=== PATIENT | female | born 1975 | race Caucasian/White ===

== ENCOUNTER 2020-01-31 14:56 | Outpatient (CLI) | payer OTHER, SELFPAY ==
--- NOTE | 2020-01-31 15:09 | MM_ITS ---
WS: [id number] BILATERAL DIGITAL SCREENING MAMMOGRAPHY WITH CAD CLINICAL INFORMATION: SCREENING HISTORY: Screening mammogram. No current complaints. COMPARISON: September 02, 2016 TECHNIQUE: Bilateral CC and MLO views. FINDINGS: Scattered fibroglandular densities bilaterally. No suspicious focal mass, asymmetry, calcifications, or architectural distortion. No evidence of malignancy. MM/[place] [id number] IMPRESSION: BI-RADS: 1-Negative FOLLOW UP: 1 Year Follow-up Recommend return to annual screening mammography.
== END 2020-01-31 14:57 | disposition home or self-care (01) ==
LOC: RADSHAW 15:02
PROVIDERS: PCP Physician Assistant; Visit Provider Physician Assistant
DX: Z12.31 Encounter for screening mammogram for malignant neoplasm of breast (principal)
CPT/HCPCS: 77067

== ENCOUNTER 2020-05-26 10:45 | Outpatient (CLI) | payer OTHER, SELFPAY ==
--- NOTE | 2020-05-26 10:52 | CT_ITS ---
WS: [id number] CT ABDOMEN PELVIS TECHNIQUE: Contrast-enhanced CT of the abdomen and pelvis with coronal and sagittal reformatted image s. CLINICAL INFORMATION: LLQ PAIN COMPARISON: CT and 3 ,014 DLP: 1098.[address] scans at [facility] use at least one of these dose optimization techniques: automat ed exposure control; mA and/or kV adjustment per patient size (includes targeted exams where dose is matched to clinical indication); or iterative reconstruction. FINDINGS: Hepatomegaly with diffuse fatty infiltration. Prior cholecystectomy and hysterectomy. Normal portal v ein and splenic vein. Normal spleen. Tiny atrophic left kidney. Cortical scarring right kidney. No hy dronephrosis in the right kidney . Incidental right lower pole renal cyst increased in size since 2019. Renal cyst measures 4.9 CM today . Additional smaller right renal cysts. Normal sigmoid colon. No evidence of small or large bowel obstruction. Small right adnexal cyst measu ring 1.7 cm. This can be followed up with ultrasound. Normal caliber abdominal aorta. No abdominal lymphadenopathy. No inguinal lymphadenopathy. Lung bases are well aerated. Small partially visualized nodule in the right middle lobe anteriorly measuring 6 mm. This can be followed up with chest CT. Visualized lumbar spine is normal. Normal visualized pelvi c bony structures. . CT/CT abdomen pelvis w con* [id number] IMPRESSION: 1. Diffuse fatty infiltration liver with hepatomegaly. 2. Prior cholecystectomy and hysterectomy. 3. Tiny atrophic left kidney. Cortical scarring right kidney. 4. Right lower pole renal cyst anteriorly measuring 4.9 cm progressed from 201 9 where it measured approximately 3.3 cm. 5. Tiny noncalcified nodule right middle lobe anteriorly measuring 5 mm. This appears stable since . This can be followed up with chest CT. 6. Normal caliber abdominal aorta. 7. No abdominal or inguinal lymphadenopathy. 8. Right adnexal cyst measuring 1.6 cm likely incidental ovarian cyst. This ca n be followed up with ultrasound. No free fluid in the pelvis.
[2020-05-26] MEDS: iodixanol 320 mg/mL 100mL Btl IV (11:14)
== END 2020-05-26 10:46 | disposition home or self-care (01) ==
LOC: RADWPI 10:49
PROVIDERS: Family Provider Physician Assistant; PCP Physician Assistant; Visit Provider Physician Assistant
DX: R10.32 Left lower quadrant pain (principal); K76.0 Fatty (change of) liver, not elsewhere classified; N26.1 Atrophy of kidney (terminal); N28.1 Cyst of kidney, acquired; R91.1 Solitary pulmonary nodule
CPT/HCPCS: 74177; Q9967

== ENCOUNTER 2021-03-16 13:26 | Outpatient (CLI) | payer OTHER, SELFPAY ==
[2021-03-16 14:34] LABS: Hepatitis B Surface AB 3.5 (11.5-1000)
== END 2021-03-16 13:27 | disposition home or self-care (01) ==
PROVIDERS: PCP Physician Assistant; Visit Provider Family Medicine
DX: Z01.84 Encounter for antibody response examination (principal)
CPT/HCPCS: 36415; 86706

== ENCOUNTER 2021-04-30 09:00 | Emergency (ER) | payer OTHER, SELFPAY ==
[2021-04-30 09:03] VITALS: BP 146/112; PULSE 71; RESP 22; O2SAT 98; BMI 42.4
--- NOTE | 2021-04-30 09:11 | CT_ITS ---
WS: [id number] CT ABDOMEN AND PELVIS WITH CONTRAST HISTORY: R abdominal pain; N/V TECHNIQUE: Imaging performed of the abdomen and pelvis with IV contrast. Single phase imaging of the abdomen. Coronal and sagittal reformats are submitted. All CT scans at [facility] use at least one of these dose optimization techniques: automated exposure control; mA and/or kV adjustment per patient size (includes targeted exams where dose is matched to clinical indication); or iterativ e reconstruction. IV CONTRAST: Visipaque 320; 95 mL IV. Oral contrast: No DLP: 1875.21 mGy.cm COMPARISON: 05/26/2020 Lower thorax: Long-term stability 5 mm soft tissue nodule RIGHT middle lobe. Heart is normal size. Sm all hiatal hernia. Liver/biliary system: Moderate hepatomegaly and hepatic steatosis. The liver is enlarged with diffuse marked low attenuation. No bile duct dilatation or mass. Gallbladder: Status post cholecystectomy. Pancreas: Normal size pancreas and pancreatic duct. No adjacent inflammation. Spleen: Normal size spleen. No mass or infarct. Adrenal glands: Normal. Right kidney: Multifocal areas of cortical thinning and scarring of the RIGHT kidney. The remaining p arenchyma is normally enhancing. From the anterior kidney measures 4.0 x 4.8 cm. No solid mass or obs truction. Left kidney: Severe atrophy of the LEFT kidney. Aorta: Normal. Lymphadenopathy: None. Free fluid: None. GI tract: Normal appearance of the stomach. There is circumferential thickening and mild hyperemia wi thin the jejunum. Small bowel loops measure up to 2.8 cm in diameter. Mild increased amount of fluid within the remaining small bowel. There is a 2 cm high density objects in the central small bowel but does not appear to be causing the obstruction. This may be medicinal tablet. The appendix is normal. No wall thickening of the colon or obstruction. Abdominal wall: Fat containing umbilical hernia. Pelvis: Prior hysterectomy. No free fluid or adenopathy. Negative urinary bladder. Bones: Unremarkable. CT/CT abdomen pelvis w con* [id number] IMPRESSION: 1. Small bowel enteritis predominantly involving the jejunum. No site of obstr uction is evident but there is hyperemia and wall thickening. 2. Foreign body object measuring 2 cm in the mid small bowel does not appear t o be causing the obstruction. This is probably a medicinal tablet. 3. Severe atrophy LEFT kidney. 4. Multifocal areas of cortical thinning RIGHT kidney, no change. 5. Marked hepatic steatosis and hepatomegaly. 6. Prior cholecystectomy and hysterectomy.
--- NOTE | 2021-04-30 09:11 | W.ED.ABDPA2 ---
HPI - Abdominal Pain General: Chief Complaint: Abdominal Pain Stated Complaint: r sided abdomen pain Time Seen by Provider: 04/30/21 09:01 Source: patient Mode of arrival: ambulatory Limitations: no limitations History of Present Illness: HPI narrative: Patient is a nice 45-year-old female who presents to ED today for evaluation of right-sided abdominal pain. Patient tells me earlier this week she began having intermittent episodes of nausea and vomiting. She did not notice any episodes of hematemesis. She states yesterday evening while lying in bed she began feeling some right lower abdominal discomfort. She states this morning pain has progressively worsened. She has had a few episodes of loose stools but states she often alternates between constipation and diarrhea. No episodes of hematochezia or black/tarry stools. She reports chills but no documented fevers. Previous abdominal surgeries include partial hysterectomy, tubal ligation, cholecystectomy. Reports one atrophic kidney. No urinary symptoms. Denies flank pain. MD elicited complaint: abdominal pain Pertinent past history: none Onset (ago): hour(s) Pain Consistency: constant Location: RLQ Severity: moderate Quality: sharp Radiation: none Migration to: no migration Relieving factors: nothing Associated Symptoms: Reports chills, diarrhea, nausea and vomiting; Denies bloating, coffee ground emesis, dysuria, fever(s), heartburn, hematochezia, hematemesis and melena Review of Systems Const: Reports: chills; Denies: fever(s), body aches, fatigue, malaise or night sweats ENMT: Denies: throat pain or odynophagia Card: Denies: chest pain Resp: Denies: dyspnea GI: Reports: abdominal pain, nausea, vomiting and diarrhea; Denies: hematemesis, coffee ground emesis, dysphagia, heartburn, bloating, hematochezia, melena or mucus in stool : Denies: flank pain, difficulty voiding, dysuria, urinary frequency, urinary urgency or urinary hesitancy Musc: Denies: neck pain, back pain or joint pain Skin/Breast: Denies: rash Neuro: Denies: headache(s) PFSH ED PFSH: Social History Smoking and tobacco status: never smoked Physical Exam Const: COMMON NORMALS: no acute distress, patient oriented x3, no limitations and alert GENERAL APPEARANCE: cooperative NUTRITIONAL APPEARANCE: obese ORIENTATION/CONSCIOUSNESS: Yes awake, Yes oriented to person, Yes oriented to place and Yes oriented to time HENMT: COMMON NORMALS: normocephalic and atraumatic HEAD & SCALP: normocephalic and atraumatic Resp: COMMON NORMALS: normal respiratory effort and clear to auscultation bilaterally AUSCULTATION: clear to auscultation bilaterally Cardio: COMMON NORMALS: regular rate and regular rhythm RATE: regular rate RHYTHM: regular rhythm GI: COMMON NORMALS: Normal to inspection, nondistended, normoactive bowel sounds present, Soft to palpation, No hepatosplenomegaly present and no masses PALPATION: Yes Soft to palpation, Yes Tenderness to palpation present (GI) (R mid to lower abdominal pain), Yes Guarding due to palpation present (GI) and Yes No hepatosplenomegaly present GI image (female): 1. TTP : COMMON NORMALS: Yes no CVA tenderness BLADDER/KIDNEY EXAM: Yes no CVA tenderness Back/Pelvis: COMMON NORMALS: no CVA tenderness Extremity: COMMON NORMALS: normal to inspection GENERAL: Yes normal exam except as noted Neuro: COMMON NORMALS: patient oriented x3 SENSORIUM/ORIENTATION: Yes alert, Yes oriented to person, Yes oriented to place and Yes oriented to time Skin: COMMON NORMALS: no rashes or lesions noted GENERAL SKIN EXAM: no rashes or lesions noted TRAUMA: no lacerations or abrasions Course Vital Signs: Vital signs: Vital Signs Pulse Rate 83 04/30/21 10:14 Respiratory Rate 18 04/30/21 10:14 Blood Pressure 143/94 04/30/21 10:14 Pulse Oximetry 95 04/30/21 10:14 MDM - Abdominal Pain MDM Narrative: Medical decision making narrative: 45-year-old female here for right-sided abdominal pain and intermittent episodes of nausea, vomiting, diarrhea. Vital signs are stable. She has a normal white count. Chemistry panel showing chronic kidney disease. Creatinine is 1.5. GFR is 37. Patient sees Dr. Alarcon/nephrology. Labs were reviewed on patient's phone and creatinine was 1.5 with a GFR of 37 last month during her last visit. Creatinine was 1.6 with a GFR of 36 in November 2019. She has mild elevations to her LFTs most likely consistent with her hepatomegaly. CT scan was completed with contrast prior to CMP being reported. I would have changed this to non-contrast given her atrophic left kidney and chronic kidney disease. CT scan showing small bowel enteritis predominantly involving her jejunum. UA noted with 2+ leuks, hematuria, 10-15 WBCs and 1+ bacteria. She will be placed on cefdinir 300 mg twice daily (this dose is appropriate with her CrCl). Will be treated with pain and nausea medications for the enteritis. No concern for pyelo-normal white count, no flank pain, normal enhancing kidney on imaging. Recommend close obs at home and strict return to ED precautions given. Lab Data: Labs: Lab Results 04/30/21 04/30/21 04/30/21 Range/Units 09:18 09:18 10:06 WBC 7.7 (4.0-10.0) 10^3/ uL RBC 4.74 (4.1-5.3) 10^6/u L Hgb 13.9 (11.5-15.3) g/dL Hct 41.6 (37.0-47.0) % MCV 87.8 (81-99) fL MCH 29.3 (28.0-34.0) pg MCHC 33.4 (30.0-36.0) g/dL RDW 11.7 L (12.1-15.1) % Plt Count 245 (130-400) 10^3/c mm MPV 9.3 (7.4-10.4) fL Neut % (Auto) 51.7 % Lymph % (Auto) 38.8 % [place] % (Auto) 5.3 % Eos % (Auto) 3.1 % Baso % (Auto) 1.0 % Neut # (Auto) 3.97 (1.8-7.7) 10^3/u L Lymph # (Auto) 3.0 (0.8-4.8) 10^3/u L [place] # (Auto) 0.4 (0.2-0.9) 10^3/u L Eos # (Auto) 0.2 (0.0-0.8) 10^3/u L Baso # (Auto) 0.1 (0.0-0.1) 10^3/u L Nucleated RBC % (a uto) 0 % Nucleated RBCs # 0.0 /100WBC Sodium 138 (136-145) mmol/L Potassium 3.7 (3.5-5.1) mmol/L Chloride 100 (98-107) mmol/L Carbon Dioxide 27 (22-29) mmol/L Anion Gap 14.7 (5-19) BUN 16 (6-20) mg/dL Creatinine 1.5 H (0.5-0.9) mg/dL GFR Calculation 37.4 L (90-130) mL/min Glucose 87 (65-115) mg/dL Calculated Osmolal ity 287 (285-295) mOsm/k g Calcium 8.6 (8.5-10.5) mg/dL Total Bilirubin 0.4 (0.15-1.2) mg/dL AST 44 H (0-32) U/L ALT 63 H (0-33) U/L Alkaline Phosphata se 80 (35-105) IU/L Total Protein 7.4 (6.6-8.7) g/dL Albumin 3.8 (3.5-5.2) g/dL Globulin 3.6 (1.3-4.6) g/dL Lipase 18 (13-60) U/L Urine Color Yellow (Yellow) Urine Appearance Hazy A (CLEAR) Urine pH 7 (5-7) Ur Specific Gravit y 1.005 (1.005-1.030) Urine Protein Neg (Negative) Urine Glucose (UA) Norm (Normal) Urine Ketones Negative (Negative) Urine Blood 2+ H (Negative) Urine Nitrate Negative (Negative) Urine Bilirubin Neg (Negative) Urine Urobilinogen Norm (Negative) mg/dL Ur Leukocyte Imelda ase 2+ H (Negative) Urine RBC 0-4 H (0-2) /hpf Urine WBC 10-15 H (0-5) /hpf Ur Squamous Epith Cells 0-4 H (0-5) /hpf Amorphous Sediment Not Reportable Urine Bacteria 1+ H (NONE) /hpf Imaging Data ^: CT Abd/Pel: Radiologist's impression: [address] [address] Scan ReportSigned Patient: Celia Farfan #: [id number]: [id number]#:[id number]/Sex: 45 / FADM Date: 04/30/21Loc: ERRoom/Bed:Attending Dr: Ordering Provider/Ordering MD: Елена Calabrese Date of Service: 04/30/21 Procedure(s): CT abdomen pelvis w con* [id number] Accession Number(s): [id number] Report Number: [id number] WS: [id number] CT ABDOMEN AND PELVIS WITH CONTRAST HISTORY: R abdominal pain; N/V TECHNIQUE: Imaging performed of the abdomen and pelvis with IV contrast. Single phase imaging of the abdomen. Coronal and sagittal reformats are submitted. All CT scans at [facility] use at least one of these dose optimization techniques: automated exposure control; mA and/or kV adjustment per patient size (includes targeted exams where dose is matched to clinical indication); or iterative reconstruction. IV CONTRAST: Visipaque 320; 95 mL IV. Oral contrast: No DLP: 1875.21 mGy.cm COMPARISON: 05/26/2020 Lower thorax: Long-term stability 5 mm soft tissue nodule RIGHT middle lobe. Heart is normal size. Small hiatal hernia. Liver/biliary system: Moderate hepatomegaly and hepatic steatosis. The liver is enlarged with diffuse marked low attenuation. No bile duct dilatation or mass. Gallbladder: Status post cholecystectomy. Pancreas: Normal size pancreas and pancreatic duct. No adjacent inflammation. Spleen: Normal size spleen. No mass or infarct. Adrenal glands: Normal. Right kidney: Multifocal areas of cortical thinning and scarring of the RIGHT kidney. The remaining parenchyma is normally enhancing. From the anterior kidney measures 4.0 x 4.8 cm. No solid mass or obstruction. Left kidney: Severe atrophy of the LEFT kidney. Aorta: Normal. Lymphadenopathy: None. Free fluid: None. GI tract: Normal appearance of the stomach. There is circumferential thickening and mild hyperemia within the jejunum. Small bowel loops measure up to 2.8 cm in diameter. Mild increased amount of fluid within the remaining small bowel. There is a 2 cm high density objects in the central small bowel but does not appear to be causing the obstruction. This may be medicinal tablet. The appendix is normal. No wall thickening of the colon or obstruction. Abdominal wall: Fat containing umbilical hernia. Pelvis: Prior hysterectomy. No free fluid or adenopathy. Negative urinary bladder. Bones: Unremarkable. CT/CT abdomen pelvis w con* [id number] IMPRESSION: 1. Small bowel enteritis predominantly involving the jejunum. No site of obstruction is evident but there is hyperemia and wall thickening. 2. Foreign body object measuring 2 cm in the mid small bowel does not appear to be causing the obstruction. This is probably a medicinal tablet. 3. Severe atrophy LEFT kidney. 4. Multifocal areas of cortical thinning RIGHT kidney, no change. 5. Marked hepatic steatosis and hepatomegaly. 6. Prior cholecystectomy and hysterectomy. Dictated By:Delicia Parks DOSigned By:Delicia Parks DOSigned Date/Time:04/30/2148DD/ Discharge Plan Discharge Patient Disposition: Home Clinical Impression: Enteritis Chronic kidney disease Qualifiers: Chronic kidney disease stage: stage 3 (moderate) Chronic kidney disease stage 3 subtype: stage 3b (GFR 30-44) Qualified Code(s): N18.32 - Chronic kidney disease, stage 3b UTI (urinary tract infection) Qualifiers: Urinary tract infection type: acute cystitis Hematuria presence: with hematuria Qualified Code(s): N30.01 - Acute cystitis with hematuria Condition: Stable Prescriptions: New Zofran 4 mg tablet 4 mg PO Q6H PRN (Reason: nausea and vomiting) Qty: 14 RF: 0 acetaminophen-codeine 300-30 mg tablet 1 tab PO Q6H PRN (Reason: pain) Qty: 14 RF: 0 cefdinir 300 mg capsule 300 mg PO BID 7 Days Qty: 14 RF: 0 No Action colchicine 0.6 mg tablet 0.3 mg PO DAILY RF: 0 omeprazole 20 mg tablet,delayed release (DR/EC) 20 mg PO DAILY RF: 0 albuterol sulfate 90 mcg/actuation HFA aerosol inhaler 2 puff inhalation ONCE RF: 0 potassium chloride 20 mEq tablet extended release 20 meq PO DAILY RF: 0 bumetanide 0.5 mg tablet 0.5 mg PO DAILY RF: 0 hydrochlorothiazide 25 mg tablet 25 mg PO DAILY RF: 0 citalopram 20 mg tablet 20 mg PO DAILY RF: 0 amitriptyline 10 mg tablet 10 mg PO DAILY RF: 0 tizanidine 2 mg capsule 2 mg PO BID PRNRF: 0 gabapentin 100 mg capsule 200 mg PO BID RF: 0 clindamycin HCl 300 mg capsule 300 mg PO BID 10 Days Qty: 20 RF: 0 Discharge Orders: Discharge ED (Routine); Ordered 04/30/21 Ordered By: Елена Calabrese Referrals: Stephenie Osorio [Primary Care Provider] - Patient Instructions: Urinary Tract Infection in Women (ED), Chronic Kidney Disease (ED) Activity Restrictions/Additional Instructions: As we discussed do a bland liquid diet over the next 48 to 72 hours and advance as tolerated. You may take the pain and nausea medications as needed. Begin antibiotics immediately for the urinary tract infection. You need to return to the emergency department immediately for worsening or uncontrollable pain, repetitive episodes of diarrhea or vomiting, blood in your vomit or stools, fevers greater than 100.4, severe flank pain, or any other concerns you may have. I hope you begin to feel better soon. Coding Level of Care Code ED Financial Assistance Advisor for Wolfg Fwd Exam Comprehensive
[2021-04-30 09:26] LABS: Basophils # 0.1 10^3/uL (0.0-0.1); Eosinophils # 0.2 10^3/uL (0.0-0.8); Eosinophils % 3.1 %; Hematocrit 41.6 % (37.0-47.0); Hemoglobin 13.9 g/dL (11.5-15.3); Lymphocytes % 38.8 %; Mean Corpuscular HGB Conc 33.4 g/dL (30.0-36.0); Mean Corpuscular Hemoglobin 29.3 pg (28.0-34.0); Mean Corpuscular Volume 87.8 fL (81-99); Mean Platelet Volume 9.3 fL (7.4-10.4); Monocytes # 0.4 10^3/uL (0.2-0.9); Monocytes % 5.3 %; Neutrophils # 3.97 10^3/uL (1.8-7.7); Neutrophils % 51.7 %; Nucleated Red Blood Cells % 0 %; Platelet Count 245 10^3/cmm (130-400); Red Blood Count 4.74 10^6/uL (4.1-5.3); Red Cell Distribution Width 11.7 % (12.1-15.1); White Blood Count 7.7 10^3/uL (4.0-10.0)
[2021-04-30] MEDS: morphine 4 mg/mL SDV 1 mL IVP (09:26)
[2021-04-30] MEDS: ondansetron 2 mg/ML SDV 2 mL 4 MG IVP (09:26)
[2021-04-30] MEDS: sodium chloride 0.9% 1,000 ML 999 ML IV (09:27)
[2021-04-30] MEDS: iodixanol 320 mg/mL 100mL Btl IV (09:33)
[2021-04-30 09:46] LABS: Alanine Aminotransferase 63 U/L (0-33); Albumin Level 3.8 g/dL (3.5-5.2); Alkaline Phosphatase 80 IU/L (35-105); Anion Gap 14.7 (5-19); Aspartate Amino Transferase 44 U/L (0-32); Blood Urea Nitrogen 16 mg/dL (6-20); Calcium 8.6 mg/dL (8.5-10.5); Carbon Dioxide 27 mmol/L (22-29); Chloride 100 mmol/L (98-107); Globulin 3.6 g/dL (1.3-4.6); Glomerular Filtration Rate 37.4 mL/min (90-130); Glucose 87 mg/dL (65-115); Lipase 18 U/L (13-60); Osmolality Calculated 287 mOsm/kg (285-295); Potassium 3.7 mmol/L (3.5-5.1); Sodium 138 mmol/L (136-145); Total Bilirubin 0.4 mg/dL (0.15-1.2); Total Protein 7.4 g/dL (6.6-8.7)
[2021-04-30 10:14] VITALS: BP 143/94; PULSE 83; RESP 18; O2SAT 95
[2021-04-30 10:19] LABS: Bilirubin Urine Neg (Negative); Blood Urine 2+ (Negative); Glucose Urine UA Norm (Normal); Ketones Urine Negative (Negative); Nitrate Urine Negative (Negative); Protein Urine Neg (Negative); Specific Gravity, Urine 1.005 (1.005-1.030); Urine Appearance Hazy (CLEAR); Urine Color Yellow (Yellow); Urobilinogen Urine Norm (Negative); pH Urine 7 (5-7)
[2021-04-30 10:20] LABS: Add Urine Culture? Yes; Add Urine Microscopic? YES; Bacteria Urine 1+ /hpf; Leukocyte Esterase Urine 2+ (Negative); RBC Urine 0-4 /hpf (0-2); Squamous Epithelial Cell Urine 0-4 /hpf (0-5)
[2021-04-30 10:53] VITALS: BP 143/94; PULSE 75; O2SAT 96
== END 2021-04-30 11:02 | disposition home or self-care (01) ==
PROVIDERS: Emergency Provider Physician Assistant; PCP Registered Nurse
DX: K52.9 Noninfective gastroenteritis and colitis, unspecified (principal); N30.01 Acute cystitis with hematuria; N18.32 Chronic kidney disease, stage 3b
CPT/HCPCS: 74177; 80053; 81001; 83690; 85025; 87077; 87086; 87186; 96361; 96374; 96375; 99284; J2270; J2405; J7030; Q9967

== ENCOUNTER 2021-05-05 13:06 | Outpatient (CLI) | payer OTHER, SELFPAY ==
--- NOTE | 2021-05-05 13:20 | XR_ITS ---
WS: [id number] Exam: XR KUB [id number] Date/Time of Exam: 05/05/2021 1:20 PM Reason For Exam: ENTERITIS/ELEVATED LFT'S No bowel obstruction or free air noted. There is an ovoid opacity in the right abdomen that may repre sent medication in the GI tract. Visualized organ margins are intact. Signs of prior cholecystectomy. Regional bony elements are unremarkable. XR/XR KUB [id number] IMPRESSION: 1. No acute abdominal finding.
[2021-05-05 14:25] LABS: Amylase 24 U/L (28-100); Lipase 17 U/L (13-60)
== END 2021-05-05 13:07 | disposition home or self-care (01) ==
PROVIDERS: PCP Registered Nurse; Visit Provider Registered Nurse
DX: K52.9 Noninfective gastroenteritis and colitis, unspecified (principal); R79.89 Other specified abnormal findings of blood chemistry
CPT/HCPCS: 36415; 74018; 82150; 83690

== ENCOUNTER 2021-05-12 16:19 | Outpatient (CLI) | payer OTHER, SELFPAY ==
--- NOTE | 2021-05-12 16:33 | XR_ITS ---
WS: [id number] Lumbar spine, 3 views, 05/12/2021 Clinical Data: LOWER BACK PAIN Comparison: Lumbar spine, 03/28/2013. Findings: No compression fractures or subluxation is seen. No disc space narrowing is seen. The transverse proc esses and SI joints are normal. There is minimal osteoarthritic spurring of L3-L5. There are clips in the right upper quadrant from c holecystectomy. XR/XR lumbar spine 2-3V* [id number] Impression: Minimal osteoarthritis L3-L5.
== END 2021-05-12 16:20 | disposition home or self-care (01) ==
LOC: RAD 16:22
PROVIDERS: PCP Registered Nurse; Visit Provider Registered Nurse
DX: M54.5 Low back pain (principal)
CPT/HCPCS: 72100

== ENCOUNTER → 2021-07-07 15:04 | Outpatient (BNVA) | payer OTHER, SELFPAY | PROVIDERS: PCP Registered Nurse; Visit Provider Surgery | DX: Z20.822 Contact with and (suspected) exposure to COVID-19 (principal) | CPT/HCPCS: 87635 ==

== ENCOUNTER 2021-07-14 06:40 | Day surgery (SDC) | payer OTHER, SELFPAY ==
--- NOTE | 2021-07-14 06:10 | W.PM.OPSFHP ---
Same Day Surgery H&P Indication for Procedure/HPI DATE OF PROCEDURE: July 14, 2021 CHIEF COMPLAINT/INDICATIONFOR SURGICAL PROCEDURE: Constipation PREOP DIAGNOSIS: Screening colonoscopy PLANNED PROCEDRUE: Operation Date: 07/14/21 07:30 Proposed Procedures p Colonoscopy 51002 r19.4(Not Applicable) - Bronson Nolen MD Patient comes today for follow-up and she did respond some to the muscle relaxant and she has been moving her bowels and overall feels somehow better. Patient reports to me that she never had a colonoscopy as we discussed this last time and I did explore the potential option for colonoscopy at some point. As she continued to have chronic constipation. Interim history 07/14/2021 Patient comes today for screening colonoscopy ROS All systems have been reviewed negative except as per the above or per problem list Medications/Allergies* Home Medications Medication Instructions Recorded Confirmed Type albuterol sulfate 90 mcg/actuation 2 puff INHALATION ONCE g 02/15/21 07/12/21 History aerosol inhaler amitriptyline 10 mg tablet 10 mg PO DAILY 02/15/21 07/12/21 History bumetanide 0.5 mg tablet 0.5 mg PO DAILY 02/15/21 07/12/21 History citalopram 20 mg tablet 20 mg PO DAILY 02/15/21 07/12/21 History colchicine 0.6 mg tablet 0.3 mg PO DAILY 02/15/21 07/12/21 History gabapentin 100 mg capsule 200 mg PO BID cap 02/15/21 07/12/21 History hydrochlorothiazide 25 mg tablet 25 mg PO DAILY 02/15/21 07/12/21 History omeprazole 20 mg tablet,delayed 20 mg PO DAILY 02/15/21 07/12/21 History release potassium chloride 20 mEq 20 meq PO DAILY 02/15/21 07/12/21 History tablet,extended release tizanidine 2 mg capsule 2 mg PO BID PRN 02/15/21 07/12/21 History Allergies/Adverse Reactions Allergy/AdvReac Type Severity Reaction Status Date / Time latex Allergy Unknown Verified 07/14/21 07:48 lisinopril Allergy ADR/ALGY-Pa Verified 07/14/21 07:48 lpitations sulfamethoxazole Allergy ALGY-Rash Verified 07/14/21 07:48 [From Bactrim] trimethoprim [From Bactrim] Allergy ALGY-Rash Verified 07/14/21 07:48 Pertinent History/Comorbid Conditions* Medical History (Updated 05/15/21 @ 16:42 by Bronson Nolen MD) GERD (gastroesophageal reflux disease) Musculoskeletal pain Family History (Updated 05/06/21 @ 14:00 by Tressa Berkowitz) CAD (coronary artery disease) Father Lung disease Grandfather Hypertension Mother Father Denies family history of Diabetes Dementia Cancer Stroke Social History Smoking and tobacco status: never smoked Second hand smoke exposure: No Alcohol intake: never Desire information about alcohol rehabilitation?: No Lives independently: Yes Household members: spouse Marital status: Pertinent Exam Findings alert, oriented x 3, clear to auscultation bilaterally, regular rate & rhythm and procedure specific exam findings (Abdominal exam nontender nondistended soft) Recommendations Surgery/Procedure today (Screening colonoscopy) Other Plans: Plan of care; After thorough history and physical examination and reviewing the chart, plan to perform screening colonoscopy. I discussed with the patient in details the risks,benefits,alternatives and indications.The risk of aspiration, bleeding, soft tissue injury, perforation of the colon and other potential concomitant complications were explained to the patient in details,also the potential need for Laproscoy/Laparotomy to repair any related complications including but not limited to colectomy and or Closotomy.The patient understood this well and did agree to proceed. Rationale was carefully and clearly discussed with the patient.Appropriate informed consent have been reviewed and signed All questions have been answered and all concerns have been addressed to patient's satisfaction. 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
--- NOTE | 2021-07-14 06:50 | ANES.PREANE2 ---
Pre-Anesthetic Assessment Pre-Anesthetic Assessment: Height/Weight: Height 1.5 m Weight 90.718 kg Preop Diagnosis: Screening colonoscopy Proposed Procedure: Operation Date: 07/14/21 07:30 Proposed Procedures p Colonoscopy 63898 r19.4(Not Applicable) - Bronson Nolen MD Familial anesthetic complications: none Was Beta Harpreet taken within 24 hours: N/A Was Clonidine taken within 24 hours: N/A Last intake: solid- 07/13/21 1800 liquid- 07/13 2130 Social: Social History: No alcohol and No tobacco Exam: Pre-Anes Outpt Exam: alert, oriented x 3, clear to auscultation bilaterally and regular rate & rhythm Airway: Submandibular: WNL Cervical ROM: WNL MP: 3 Dentition: Full History/ROS: No significant history except as noted Pulmonary: Pulmonary: Asthma CV/HEM: CV/HEM: HTN Comments: mitral prolapse valve : : None reported Comments: 1 functional kidney ( defect) Hepatic: Comments: ROLAND GI: GI: GERD Metabolic: Metabolic: Morbid obesity Musc/skel: Musc/skel: Fibromyalgia, Lower Back Pain and OA/DJD Neuropsych: Neuropsych: Anxiety and Depression Anesthetic Plan: ASA status: 3 Anesthesia: MAC Risk of > 500 ml blood loss (7ml/kg in children): No PFSH Anesthesia PFSH: Medical History GERD (gastroesophageal reflux disease) Musculoskeletal pain Family History Mother Hypertension Father Hypertension CAD (coronary artery disease) Grandfather Lung disease Denies family history of Diabetes Dementia Cancer Stroke Social History Smoking and tobacco status: never smoked Second hand smoke exposure: No Alcohol intake: never Desire information about alcohol rehabilitation?: No Lives independently: Yes Household members: spouse Marital status: Data Anesthesia Cardiac Studies: No Data to Display
[2021-07-14 06:51] VITALS: BP 145/94; PULSE 85; RESP 18; TEMP 36.4; O2SAT 95
[2021-07-14] MEDS: sodium chloride 0.9% 1,000 ML 30 ML IV (07:26)
[2021-07-14 08:14] VITALS: BP 108/57; PULSE 74; RESP 16; TEMP 36.2; O2SAT 95
[2021-07-14 08:23] VITALS: BP 137/82; PULSE 72; RESP 18; O2SAT 95
--- NOTE | 2021-07-14 08:33 | PC.NURSE ---
Educated patient to strain stool in efforts to find polyp. If polyp found instructed patient to use tongue depressor to place polyp in specimen cup, contact Dr. Nolen office and bring polyp to [facility] lab for testing.
--- NOTE | 2021-07-14 08:51 | PC.NURSE ---
patient used the bathroom prior to discharge, small polyp found. Polyp placed in formalin per Dr. Nolen orders and sent to lab.
--- NOTE | 2021-07-14 09:02 | ANE.PACU2 ---
Inpatient post-anesthesia follow up: Airway intact: Yes Vital signs: Temperature 97.1 F Pulse Rate 72 Respiratory Rate 18 Blood Pressure 137/82 Pulse Oximetry 95 Oxygen Delivery Me thod Room Air Oxygen Flow Rate Fraction of Inspir ed Oxygen Hydration adequate: Yes Nausea and vomiting: No Mental status: Baseline
== END 2021-07-14 08:50 | disposition home or self-care (01) ==
PROVIDERS: PCP Registered Nurse; Visit Provider Surgery
PROC: 0DJD8ZZ Inspection of Lower Intestinal Tract, Via Natural or Artificial Opening Endoscopic (ICD-10-PCS; CPT 45378; principal; 2021-07-14 07:30)
DX: K59.00 Constipation, unspecified (principal); K21.9 Gastro-esophageal reflux disease without esophagitis; Z82.49 Family history of ischemic heart disease and other diseases of the circulatory system; I10 Essential (primary) hypertension; E66.01 Morbid (severe) obesity due to excess calories; Z68.41 Body mass index [BMI] 40.0-44.9, adult; M79.7 Fibromyalgia; D12.8 Benign neoplasm of rectum
CPT/HCPCS: 45385; 88305; 96360; 96361; J2704; J7030

== ENCOUNTER 2021-07-20 15:29 | Emergency (ER) | payer OTHER, SELFPAY ==
[2021-07-20 15:43] VITALS: BP 140/101; PULSE 85; RESP 16; TEMP 36.6; O2SAT 97; BMI 40.4
--- NOTE | 2021-07-20 16:52 | CTR_ITS ---
PROCEDURE INFORMATION: Exam: CT Head Without Contrast Exam date and time: 07/20/2021 4:52 PM Age: 45 years old Clinical indication: Pain; Headache; Migraine; Additional info: Headache - sudden onset TECHNIQUE: Imaging protocol: Computed tomography of the head without contrast. Radiation optimization: All CT scans at this facility use at least one of these dose optimization techniques: automated exposure control; mA and/or kV adjustment per patient size (includes targeted exams where dose is matched to clinical indication); or iterative reconstruction. COMPARISON: No relevant prior studies available. RADIATION DOSE METRICS: Total DLP (mGy-cm): 778.78 FINDINGS: Brain: There is no evidence of infarct, morrison-white matter differentiation is preserved. There is no hemorrhage or extra-axial collection. There is no mass. No evidence of subarachnoid hemorrhage. No evidence of cerebral edema. Cerebral ventricles: No ventriculomegaly. Paranasal sinuses: Visualized sinuses are unremarkable. No fluid levels. Mastoid air cells: Visualized mastoid air cells are well aerated. Bones/joints: Unremarkable. No acute fracture. Soft tissues: Unremarkable. CT/CT head wo con* [id number] IMPRESSION: No intracranial lesion or injury Radiation Dose CTDIVOL = (mGy): DLP = 778.78 (mGy-cm)
--- NOTE | 2021-07-20 17:01 | W.ED.HA ---
HPI - Headache General: Chief Complaint: Headache Stated Complaint: headache, pain in L eye Time Seen by Provider: 07/20/21 15:58 History of Present Illness: HPI Narrative: 45-year-old female presents emergency room complaining of headache. She had a migraine headache that began this morning which is different than her previous migraine migraines more intense [place] very nauseous took photophobic as well. She has not really tried anything at home. Does use promethazine as needed in the past. Nausea without vomiting or diarrhea. No recent head injury she is not on any anticoagulants. MD elicited complaint: migraine Onset description: on awakening Location: left, frontal and retro-orbital Severity: severe Quality & Timing: throbbing Exacerbating factors: none Relieving factors: nothing Associated symptoms: Reports eye pain and photophobia; Deny chest pain, confusion, cough, diaphoresis, eye redness, fever(s), lightheadedness, loss of vision, malaise, nausea, neck stiffness, numbness, paresthesias, pre-syncope, rash, seizures, short of breath, sound sensitivity, syncope, vomiting or weakness Treatments prior to arrival: none Review of Systems Const: Denies: fever(s), malaise or diaphoresis ENMT: Denies: throat pain, ear or mastoid pain, nasal discharge or nasal congestion Card: Denies: chest pain, lightheadedness, syncope or pre-syncope Resp: Denies: dyspnea, productive cough or non-productive cough GI: Denies: nausea or vomiting : Denies: flank pain, difficulty voiding, dysuria, urinary frequency or urinary urgency Skin/Breast: Denies: rash Neuro: Denies: confusion PFSH ED PFSH: Medical History Colon polyps GERD (gastroesophageal reflux disease) Musculoskeletal pain Family History Mother Hypertension Father Hypertension CAD (coronary artery disease) Grandfather Lung disease Denies family history of Diabetes Dementia Cancer Stroke Social History Second hand smoke exposure: No Alcohol intake: never Desire information about alcohol rehabilitation?: No Lives independently: Yes Household members: spouse Marital status: Physical Exam Const: COMMON NORMALS: no acute distress GENERAL APPEARANCE: cooperative and comfortable ORIENTATION/CONSCIOUSNESS: Yes awake, Yes oriented to person, Yes oriented to place and Yes oriented to time HENMT: COMMON NORMALS: normocephalic, atraumatic and hearing grossly normal bilaterally HEAD & SCALP: normocephalic and atraumatic Eye: DIRECT OPHTHALMOSCOPY: Yes photophobia Neck/C-Spine: COMMON NORMALS: no JVD Resp: COMMON NORMALS: normal respiratory effort, No retractions, No use of accessory muscles and clear to auscultation bilaterally AUSCULTATION: clear to auscultation bilaterally Cardio: COMMON NORMALS: no JVD, regular rate, regular rhythm and No murmurs present (Cardio) RATE: regular rate RHYTHM: regular rhythm GI: COMMON NORMALS: Soft to palpation and No hepatosplenomegaly present AUSCULTATION: Yes normoactive bowel sounds PALPATION: Yes Soft to palpation, No Tenderness to palpation present (GI), No Guarding due to palpation present (GI) and Yes No hepatosplenomegaly present Extremity: COMMON NORMALS: normal to inspection, capillary refill normal, no clubbing, cyanosis or edema, no calf tenderness and no pedal edema Neuro: SENSORIUM/ORIENTATION: Yes oriented to person, Yes oriented to place and Yes oriented to time Skin: COMMON NORMALS: no rashes or lesions noted GENERAL SKIN EXAM: no rashes or lesions noted Course Vital Signs: Vital signs: Vital Signs Temperature 98 F 07/20/21 15:43 Pulse Rate 78 07/20/21 18:36 Respiratory Rate 16 07/20/21 18:36 Blood Pressure 128/88 07/20/21 18:36 Pulse Oximetry 96 07/20/21 18:36 MDM - Headache MDM Narrative: Medical decision making narrative: Patient given potassium supplement. Discussed lab and imaging with her. Give her Phenergan to use as needed discharged home with potassium supplement recheck potassium tomorrow return to emergency room if she has further problems. Lab Data: Labs: Lab Results 07/20/21 07/20/21 Range/Units 16:20 16:20 WBC 6.7 (4.0-10.0) 10^3/ uL RBC 4.76 (4.1-5.3) 10^6/u L Hgb 14.0 (11.5-15.3) g/dL Hct 42.1 (37.0-47.0) % MCV 88.4 (81-99) fl MCH 29.4 (28.0-34.0) pg MCHC 33.3 (30.0-36.0) g/dL RDW 13.0 (12.1-15.1) % Plt Count 257 (130-400) 10^3/c mm MPV 10.0 (7.4-10.4) fL Neut % (Auto) 38.8 % Lymph % (Auto) 49.8 % [place] % (Auto) 7.8 % Eos % (Auto) 2.4 % Baso % (Auto) 0.9 % Neut # (Auto) 2.59 (1.8-7.7) 10^3/u L Lymph # (Auto) 3.3 (0.8-4.8) 10^3/u L [place] # (Auto) 0.5 (0.2-0.9) 10^3/u L Eos # (Auto) 0.2 (0.0-0.8) 10^3/u L Baso # (Auto) 0.1 (0.0-0.1) 10^3/u L Nucleated RBC % (a uto) 0 % Nucleated RBCs # 0.0 /100WBC Sodium 139 (136-145) mmol/L Potassium 2.7 L* (3.5-5.1) mmol/L Chloride 95 L (98-107) mmol/L Carbon Dioxide 34 H (22-29) mmol/L Anion Gap 12.7 (5-19) BUN 12 (6-20) mg/dL Creatinine 1.2 H (0.5-0.9) mg/dL GFR Calculation 48.4 L (90-130) mL/min Glucose 113 (65-115) mg/dL Calculated Osmolal ity 289 (285-295) mOsm/k g Calcium 8.7 (8.5-10.5) mg/dL Total Bilirubin 0.4 (0.15-1.2) mg/dL AST 68 H (0-32) U/L ALT 82 H (0-33) U/L Alkaline Phosphata se 99 (35-105) IU/L Total Protein 7.6 (6.6-8.7) g/dL Albumin 3.9 (3.5-5.2) g/dL Globulin 3.7 (1.3-4.6) g/dL Discharge Plan Discharge Patient Disposition: Home Clinical Impression: Migraine, Acute hypokalemia Condition: Stable Prescriptions: New promethazine 25 mg tablet 25 mg PO Q6H PRN (Reason: nausea and vomiting) Qty: 20 RF: 0 No Action colchicine 0.6 mg tablet 0.3 mg PO DAILY RF: 0 omeprazole 20 mg tablet,delayed release (DR/EC) 20 mg PO DAILY RF: 0 albuterol sulfate 90 mcg/actuation HFA aerosol inhaler 2 puff inhalation ONCE RF: 0 bumetanide 0.5 mg tablet 0.5 mg PO DAILY RF: 0 hydrochlorothiazide 25 mg tablet 25 mg PO DAILY RF: 0 citalopram 20 mg tablet 20 mg PO DAILY RF: 0 amitriptyline 10 mg tablet 10 mg PO BEDTIME RF: 0 tizanidine 2 mg capsule 2 mg PO BID PRN (Reason: Pain) RF: 0 gabapentin 100 mg capsule 100 mg PO BID RF: 0 ondansetron HCl [Zofran] 4 mg tablet 4 mg PO Q6H PRN (Reason: nausea and vomiting) Qty: 14 RF: 0 Chlortab-4 4 mg Tablet 4 mg PO Q4H RF: 0 prochlorperazine maleate 5 mg tablet 5 mg PO Q8H PRN (Reason: Nausea) RF: 0 fluticasone furoate 27.5 mcg/actuation [place],Suspension 2 spray INTRANASAL DAILY RF: 0 potassium citrate 15 mEq Tablet Extended Release 1,620 mg PO BID RF: 0 Discharge Orders: Discharge ED (Routine); Ordered 07/20/21 Ordered By: Alessandro Collier Referrals: Stephenie Osorio [Primary Care Provider] - Discharge Diet: Usual diet Discharge Activity: Resume usual activity Patient Instructions: Opioid Safety Coding Level of Care Code ED [employer]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
[2021-07-20 17:11] LABS: Basophils # 0.1 10^3/uL (0.0-0.1); Basophils % 0.9 %; Eosinophils # 0.2 10^3/uL (0.0-0.8); Eosinophils % 2.4 %; Hematocrit 42.1 % (37.0-47.0); Lymphocytes # 3.3 10^3/uL (0.8-4.8); Lymphocytes % 49.8 %; Mean Corpuscular HGB Conc 33.3 g/dL (30.0-36.0); Mean Corpuscular Hemoglobin 29.4 pg (28.0-34.0); Mean Corpuscular Volume 88.4 fl (81-99); Monocytes # 0.5 10^3/uL (0.2-0.9); Monocytes % 7.8 %; Neutrophils # 2.59 10^3/uL (1.8-7.7); Neutrophils % 38.8 %; Nucleated Red Blood Cells % 0 %; Platelet Count 257 10^3/cmm (130-400); Red Blood Count 4.76 10^6/uL (4.1-5.3); White Blood Count 6.7 10^3/uL (4.0-10.0)
[2021-07-20] MEDS: ketorolac 30 mg/mL INJ 15 MG IVP (17:19)
[2021-07-20] MEDS: promethazine 25 mg/mL SDV 1 mL IM (17:23)
[2021-07-20] MEDS: valproic acid inj 500 MG in sodium chloride 0.9% 50 ML 55 MG IV (17:30)
[2021-07-20 17:46] LABS: Alanine Aminotransferase 82 U/L (0-33); Albumin Level 3.9 g/dL (3.5-5.2); Alkaline Phosphatase 99 IU/L (35-105); Anion Gap 12.7 (5-19); Aspartate Amino Transferase 68 U/L (0-32); Blood Urea Nitrogen 12 mg/dL (6-20); Calcium 8.7 mg/dL (8.5-10.5); Carbon Dioxide 34 mmol/L (22-29); Chloride 95 mmol/L (98-107); Globulin 3.7 g/dL (1.3-4.6); Glomerular Filtration Rate 48.4 mL/min (90-130); Glucose 113 mg/dL (65-115); Osmolality Calculated 289 mOsm/kg (285-295); Sodium 139 mmol/L (136-145); Total Bilirubin 0.4 mg/dL (0.15-1.2); Total Protein 7.6 g/dL (6.6-8.7)
[2021-07-20 17:48] LABS: Potassium 2.7 mmol/L (3.5-5.1)
[2021-07-20] MEDS: potassium chloride oral liq 20 mEq/15 mL UDC 60 MEQ PO (17:58)
[2021-07-20 18:30] VITALS: RESP 17
[2021-07-20] MEDS: morphine 4 mg/mL SDV 1 mL IVP (18:30)
[2021-07-20 18:36] VITALS: BP 128/88; PULSE 78; RESP 16; O2SAT 96
== END 2021-07-20 18:36 | disposition home or self-care (01) ==
PROVIDERS: Emergency Provider Family Medicine; PCP Registered Nurse
DX: G43.909 Migraine, unspecified, not intractable, without status migrainosus (principal); E87.6 Hypokalemia
CPT/HCPCS: 70450; 80053; 85025; 96365; 96372; 96375; 99284; J1885; J2270; J2550

== ENCOUNTER 2021-08-06 09:22 | Outpatient (CLI) | payer OTHER, SELFPAY ==
--- NOTE | 2021-08-06 09:25 | MM_ITS ---
WS: [id number] BILATERAL DIGITAL SCREENING MAMMOGRAPHY WITH CAD CLINICAL INFORMATION: SCREENING HISTORY: Screening mammogram. No current complaints. COMPARISON: January 31, 2020 TECHNIQUE: Bilateral CC and MLO views. FINDINGS: Scattered fibroglandular densities bilaterally. No suspicious focal mass, asymmetry, calcifications, or architectural distortion. No evidence of malignancy. A few punctate calcifications. MM/[place] [id number] IMPRESSION: BI-RADS: 2-Benign FOLLOW UP: 1 Year Follow-up Recommend return to annual screening mammography.
== END 2021-08-06 09:23 | disposition home or self-care (01) ==
LOC: RADSHAW 09:24
PROVIDERS: PCP Registered Nurse; Visit Provider Registered Nurse
DX: Z12.31 Encounter for screening mammogram for malignant neoplasm of breast (principal)
CPT/HCPCS: 77067

== ENCOUNTER 2021-08-10 06:00 | Outpatient (RCR) | payer OTHER, SELFPAY | END 2021-08-19 23:59 | disposition home or self-care (01) | LOC: SPT 06:00 | PROVIDERS: PCP Registered Nurse; Referring Provider Registered Nurse; Visit Provider Registered Nurse | DX: R42 Dizziness and giddiness (principal) | CPT/HCPCS: 95992; 97162 ==

== ENCOUNTER 2021-08-14 16:25 | Observation (INO) | payer OTHER, SELFPAY ==
[2021-08-14] VITALS (9 sets, daily range): BP systolic 111–181; BP diastolic 72–123; PULSE 81–102; RESP 13–24; TEMP 36.7–36.8; O2SAT 94–99; BMI 40.4; BMI 43.8
--- NOTE | 2021-08-14 20:22 | W.ED.ABDPA2 ---
HPI - Abdominal Pain General: Chief Complaint: Abdominal Pain Stated Complaint: LUQ abd/back pain since yesterday Time Seen by Provider: 08/14/21 20:10 History of Present Illness: HPI narrative: The patient is a 45-year-old female with past medical history diverticulitis who comes to the ER complaining of left sided abdominal pain radiating to her back. She also has a history of a with a awake kidney on the left. Her right kidney works fine she says. She has been complaining of pain that started yesterday and is progressively worse. History of hysterectomy, cholecystectomy in the past. Admits nausea and moderate pain. She is passing gas and stool normally though she says it is yellow. MD elicited complaint: abdominal pain Pertinent past history: diverticulitis Onset (ago): day(s) (1) Pain Consistency: constant Severity: moderate Quality: sharp Relieving factors: nothing Associated Symptoms: Reports nausea, poor appetite and vomiting; Denies constipation and diarrhea Review of Systems General: Reports: 10 or more systems reviewed and unremarkable except in HPI and below Const: Denies: fatigue Eyes: Denies: change in vision, blurry vision or eye redness ENMT: Denies: throat pain, swelling of lips/tongue, ear or mastoid pain or nasal congestion Card: Denies: chest pain, palpitations, irregular heart rhythm, edema, dyspnea on exertion or orthopnea Resp: Denies: dyspnea, productive cough or non-productive cough GI: Reports: nausea and vomiting; Denies: diarrhea or constipation : Denies: flank pain, difficulty voiding, urinary frequency or urinary urgency Musc: Denies: neck pain, back pain, extremity pain, joint pain, joint redness, limited range of motion or muscle weakness Skin/Breast: Denies: rash, pruritus, erythema, skin pain or skin tenderness Neuro: Denies: headache(s), numbness in extremities, weakness in extremities, sensory changes, difficulty walking, dizziness, confusion or Slurred speech present Psych: Denies: anxiety or depression Endo: Denies: polyuria All/Imm: Denies: urticaria, throat swelling or tongue swelling PFSH ED PFSH: Medical History Colon polyps GERD (gastroesophageal reflux disease) Musculoskeletal pain Family History Mother Hypertension Father Hypertension CAD (coronary artery disease) Grandfather Lung disease Denies family history of Diabetes Dementia Cancer Stroke Social History Second hand smoke exposure: No Alcohol intake: never Desire information about alcohol rehabilitation?: No Lives independently: Yes Household members: spouse Marital status: Physical Exam Const: COMMON NORMALS: no acute distress, average body habitus, patient oriented x3, no limitations, healthy appearing, alert and well nourished GENERAL APPEARANCE: cooperative, comfortable, well kempt and well developed ORIENTATION/CONSCIOUSNESS: Yes awake, Yes oriented to person, Yes oriented to place and Yes oriented to time HENMT: COMMON NORMALS: normocephalic, external ears normal and Normal external nose present HEAD & SCALP: normal to inspection and normocephalic NOSE: Normal external nose present EXTERNAL EAR: Yes external ears normal MOUTH: Normal oral and palatal mucosa present THROAT: posterior oropharynx normal Eye: COMMON NORMALS: Equal, round and reactive pupils present and EOMs intact bilaterally GENERAL EYE: appearance normal, both eyes and all related structures PUPIL: Yes Equal, round and reactive pupils present Neck/C-Spine: COMMON NORMALS: full ROM, no lymphadenopathy, no meningeal signs and no JVD GENERAL: Yes normal visual inspection Lymph: LYMPHATIC: no lymphadenopathy noted Chest: COMMONS NORMALS: normal inspection of the chest and normal palpation of entire chest wall Resp: COMMON NORMALS: normal respiratory effort, No retractions, No use of accessory muscles, clear to auscultation bilaterally and percussion normal EFFORT & INSPECTION: Yes able to speak in complete sentences AUSCULTATION: clear to auscultation bilaterally PERCUSSION: percussion normal Cardio: COMMON NORMALS: no JVD, regular rate, regular rhythm, S1 normal heart sound present, S2 normal heart sound present and Peripheral pulses 2+ throughout RATE: regular rate RHYTHM: regular rhythm HEART SOUNDS: S1 normal heart sound present and S2 normal heart sound present PERIPHERAL PULSES: Peripheral pulses 2+ throughout GI: AUSCULTATION: Yes normoactive bowel sounds PALPATION: Yes Tenderness to palpation present (GI) Details: LLQ and LUQ GI image (female): 1. Abdominal tenderness. Belly soft. : COMMON NORMALS: Yes no CVA tenderness BLADDER/KIDNEY EXAM: Yes no CVA tenderness Back/Pelvis: COMMON NORMALS: no CVA tenderness, thoracic and lumbar spine normal to inspection, no thoracic nor lumbar tenderness and thoraco-lumbar ROM normal Extremity: COMMON NORMALS: normal to inspection, full ROM, capillary refill normal, no joint enlargement and no pedal edema GENERAL: Yes normal exam except as noted Neuro: COMMON NORMALS: patient oriented x3, CN's II-XII intact bilaterally, moves all extremities, no focal motor deficits, no sensory deficits noted and gait normal SENSORIUM/ORIENTATION: Yes alert, Yes oriented to person, Yes oriented to place and Yes oriented to time MENINGEAL SIGNS: Yes no meningeal signs Psych: COMMON NORMALS: mental status grossly normal, Normal thought process present, cooperative, normal affect and speech normal APPEARANCE: Yes well kempt ATTITUDE: Yes calm SPEECH: Yes normal speech THOUGHT PROCESS: Normal thought process present Skin: COMMON NORMALS: no rashes or lesions noted GENERAL SKIN EXAM: no rashes or lesions noted Course Vital Signs: Vital signs: Vital Signs Temperature 98.3 F 08/14/21 20:10 Pulse Rate 81 08/14/21 20:48 Respiratory Rate 24 H 08/14/21 22:39 Blood Pressure 111/79 08/14/21 20:48 Pulse Oximetry 96 08/14/21 22:39 MDM - Abdominal Pain MDM Narrative: Medical decision making narrative: The patient came in complaining of left-sided abdominal pain with history of UTIs and diverticulitis. CT shows constipation. Urinalysis is positive for white blood cells possible UTI. She was started on an antibiotic regimen empirically. She has a mild elevation of her white count as well. She does have significant hypokalemia at 2.6 and was given IV replacement as well as IV fluids. Discussed with Dr. Mcguire who accepts for observation for electrolyte replacement and monitoring. She also has chronic kidney disease and a chronically atrophied left kidney. Lab Data: Labs: Lab Results 08/14/21 08/14/21 08/14/21 20:35 20:35 20:35 WBC 12.0 10^3/uL H 10 ^3/uL (4.0-10.0) RBC 5.15 10^6/uL 10^6 /uL (4.1-5.3) Hgb 15.3 g/dL g/dL (11.5-15.3) Hct 43.7 % % (37.0-47.0) MCV 84.9 fl fl (81-99) MCH 29.7 pg pg (28.0-34.0) MCHC 35.0 g/dL g/dL (30.0-36.0) RDW 12.5 % % (12.1-15.1) Plt Count 351 10^3/cmm 10^3 /cmm (130-400) MPV 9.2 fL fL (7.4-10.4) Neut % (Auto) 56.9 % % Lymph % (Auto) 35.1 % % [place] % (Auto) 5.1 % % Eos % (Auto) 1.7 % % Baso % (Auto) 0.7 % % Neut # (Auto) 6.84 10^3/uL 10^3 /uL (1.8-7.7) Lymph # (Auto) 4.2 10^3/uL 10^3/ uL (0.8-4.8) [place] # (Auto) 0.6 10^3/uL 10^3/ uL (0.2-0.9) Eos # (Auto) 0.2 10^3/uL 10^3/ uL (0.0-0.8) Baso # (Auto) 0.1 10^3/uL 10^3/ uL (0.0-0.1) Nucleated RBC % (a uto) 0 % % Nucleated RBCs # 0.0 /100WBC /100W BC Sodium 135 mmol/L L mmol /L (136-145) Potassium 2.6 mmol/L L* mmo l/L (3.5-5.1) Chloride 89 mmol/L L mmol/ L (98-107) Carbon Dioxide 31 mmol/L H mmol/ L (22-29) Anion Gap 17.6 (5-19) BUN 13 mg/dL mg/dL (6-20) Creatinine 1.6 mg/dL H mg/dL (0.5-0.9) GFR Calculation 34.7 mL/min L mL/ min (90-130) Glucose 101 mg/dL mg/dL (65-115) Calculated Osmolal ity 280 mOsm/kg L mOs m/kg (285-295) Lactic Acid Calcium 9.3 mg/dL mg/dL (8.5-10.5) Total Bilirubin 0.5 mg/dL mg/dL (0.15-1.2) AST 52 U/L H U/L (0-32) ALT 66 U/L H U/L (0-33) Alkaline Phosphata se 114 IU/L H IU/L (35-105) Total Protein 8.9 g/dL H g/dL (6.6-8.7) Albumin 4.3 g/dL g/dL (3.5-5.2) Globulin 4.6 g/dL g/dL (1.3-4.6) Lipase 15 U/L U/L (13-60) HCG, Qual Negative (Negative) Urine Color Urine Appearance Urine pH Ur Specific Gravit y Urine Protein Urine Glucose (UA) Urine Ketones Urine Blood Urine Nitrate Urine Bilirubin Urine Urobilinogen Ur Leukocyte Imelda ase Urine RBC Urine WBC Ur Squamous Epith Cells Amorphous Sediment Urine Bacteria 08/14/21 08/14/21 20:35 20:45 WBC RBC Hgb Hct MCV MCH MCHC RDW Plt Count MPV Neut % (Auto) Lymph % (Auto) [place] % (Auto) Eos % (Auto) Baso % (Auto) Neut # (Auto) Lymph # (Auto) [place] # (Auto) Eos # (Auto) Baso # (Auto) Nucleated RBC % (a uto) Nucleated RBCs # Sodium Potassium Chloride Carbon Dioxide Anion Gap BUN Creatinine GFR Calculation Glucose Calculated Osmolal ity Lactic Acid 2.3 mmol/L H mmol /L (0.5-2.2) Calcium Total Bilirubin AST ALT Alkaline Phosphata se Total Protein Albumin Globulin Lipase HCG, Qual Urine Color Yellow (Yellow) Urine Appearance Sl hazy (CLEAR) Urine pH 5 (5-7) Ur Specific Gravit y 1.010 (1.005-1.030) Urine Protein Neg (Negative) Urine Glucose (UA) Norm (Normal) Urine Ketones Negative (Negative) Urine Blood 2+ H (Negative) Urine Nitrate Positive H (Negative) Urine Bilirubin Neg (Negative) Urine Urobilinogen Norm mg/dL mg/dL (Negative) Ur Leukocyte Imelda ase 1+ H (Negative) Urine RBC 5-10 /hpf H /hpf (0-2) Urine WBC 10-15 /hpf H /hpf (0-5) Ur Squamous Epith Cells 15-25 /hpf H /hpf (0-5) Amorphous Sediment Not Reportable Urine Bacteria 3+ /hpf H /hpf (NONE) Discharge Plan Discharge Patient Disposition: Placed in Observation Clinical Impression: Acute hypokalemia, Abdominal pain, UTI (urinary tract infection), CKD (chronic kidney disease) Coding Level of Care Code 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
[2021-08-14] MEDS: ondansetron 2 mg/ML SDV 2 mL 4 MG IVP (20:49)
[2021-08-14] MEDS: morphine 4 mg/mL SDV 1 mL 2 MG IVP (20:49)
[2021-08-14 20:50] LABS: Basophils # 0.1 10^3/uL (0.0-0.1); Basophils % 0.7 %; Eosinophils # 0.2 10^3/uL (0.0-0.8); Eosinophils % 1.7 %; Hematocrit 43.7 % (37.0-47.0); Hemoglobin 15.3 g/dL (11.5-15.3); Lymphocytes # 4.2 10^3/uL (0.8-4.8); Lymphocytes % 35.1 %; Mean Corpuscular Hemoglobin 29.7 pg (28.0-34.0); Mean Corpuscular Volume 84.9 fl (81-99); Mean Platelet Volume 9.2 fL (7.4-10.4); Monocytes # 0.6 10^3/uL (0.2-0.9); Monocytes % 5.1 %; Neutrophils # 6.84 10^3/uL (1.8-7.7); Neutrophils % 56.9 %; Nucleated Red Blood Cells % 0 %; Platelet Count 351 10^3/cmm (130-400); Red Blood Count 5.15 10^6/uL (4.1-5.3); Red Cell Distribution Width 12.5 % (12.1-15.1)
[2021-08-14 21:25] LABS: Add Urine Microscopic? YES; Bilirubin Urine Neg (Negative); Blood Urine 2+ (Negative); Glucose Urine UA Norm (Normal); Ketones Urine Negative (Negative); Leukocyte Esterase Urine 1+ (Negative); Nitrate Urine Positive (Negative); Protein Urine Neg (Negative); Urine Appearance SL Hazy (CLEAR); Urine Color Yellow (Yellow); Urobilinogen Urine Norm (Negative); pH Urine 5 (5-7)
[2021-08-14 21:27] LABS: HCG, Serum Qual Negative (Negative)
[2021-08-14 21:28] LABS: Lactic Sepsis W/Reflex 2.3 mmol/L (0.5-2.2)
[2021-08-14 21:29] LABS: Alanine Aminotransferase 66 U/L (0-33); Albumin Level 4.3 g/dL (3.5-5.2); Alkaline Phosphatase 114 IU/L (35-105); Anion Gap 17.6 (5-19); Aspartate Amino Transferase 52 U/L (0-32); Blood Urea Nitrogen 13 mg/dL (6-20); Calcium 9.3 mg/dL (8.5-10.5); Carbon Dioxide 31 mmol/L (22-29); Chloride 89 mmol/L (98-107); Globulin 4.6 g/dL (1.3-4.6); Glomerular Filtration Rate 34.7 mL/min (90-130); Glucose 101 mg/dL (65-115); Lipase 15 U/L (13-60); Osmolality Calculated 280 mOsm/kg (285-295); Sodium 135 mmol/L (136-145); Total Bilirubin 0.5 mg/dL (0.15-1.2); Total Protein 8.9 g/dL (6.6-8.7)
[2021-08-14 21:33] LABS: Potassium 2.6 mmol/L (3.5-5.1)
[2021-08-14 21:39] LABS: Add Urine Culture? No; Bacteria Urine 3+ /hpf; Squamous Epithelial Cell Urine 15-25 /hpf (0-5)
--- NOTE | 2021-08-14 21:44 | CTR_ITS ---
PROCEDURE INFORMATION: Exam: CT Abdomen And Pelvis Without Contrast Exam date and time: 08/14/2021 9:44 PM Age: 45 years old Clinical indication: Abdominal pain; Localized; Left upper quadrant (luq); Prior surgery; Surgery date: 6+ months; Surgery type: Gb, hyst; Patient HX: C/O llq abd pain; Additional info: Left sided abd pain TECHNIQUE: Imaging protocol: Computed tomography of the abdomen and pelvis without contrast. Radiation optimization: All CT scans at this facility use at least one of these dose optimization techniques: automated exposure control; mA and/or kV adjustment per patient size (includes targeted exams where dose is matched to clinical indication); or iterative reconstruction. COMPARISON: CT abdomen pelvis w con* [id number] 04/30/2021 9:30 AM RADIATION DOSE METRICS: Total DLP (mGy-cm): 1786.72 FINDINGS: Liver: Hepatic steatosis. Gallbladder and bile ducts: Cholecystectomy. Pancreas: Normal. No ductal dilation. Spleen: Normal. No splenomegaly. Adrenal glands: Normal. No mass. Kidneys and ureters: Left kidney is markedly atrophic. Right kidney cyst. Stomach and bowel: Constipation. Appendix: No evidence of appendicitis. Intraperitoneal space: Unremarkable. No free air. No significant fluid collection. Vasculature: Unremarkable. No abdominal aortic aneurysm. Lymph nodes: Unremarkable. No enlarged lymph nodes. Urinary bladder: Unremarkable as visualized. Reproductive: Unremarkable as visualized. Bones/joints: Unremarkable. No acute fracture. Soft tissues: Unremarkable. CT/CT abdomen pelvis wo con [id number] IMPRESSION: 1. Negative for focal acute inflammatory process in the abdomen or pelvis. 2. Hepatic steatosis. 3. Cholecystectomy. 4. Left kidney is markedly atrophic. 5. Right kidney cyst, negative for follow-up advised. 6. Constipation. COMMENTS: Consistent with the [employer]'s Incidental Findings Committee white paper (J Am Amy Radiol 2018): Any incidental renal lesion less than 1 cm or classified as too small to characterize, or any incidental cystic renal lesion characterized as simple-appearing, is likely benign. No follow-up imaging is recommended for these lesions per consensus recommendations based on imaging criteria. Radiation Dose CTDIVOL = (mGy): DLP = 1786.72 (mGy-cm)
[2021-08-14] MEDS: sodium chloride 0.9% 1,000 ML 999 ML IV (22:15)
[2021-08-14] MEDS: potassium chloride premix 100 ML 25 MEQ IV (22:30)
[2021-08-14 22:35] LABS: Reflex Lactate Order REFLEX LACTIC ORDERD
[2021-08-14] MEDS: HYDROmorphone 1 mg/mL INJ 1 mL 0.5 MG IVP (22:39)
[2021-08-14 23:46] LABS: Lactic Acid level (Lactate) 1.2 mmol/L (0.5-2.2)
[2021-08-15] VITALS (10 sets, daily range): BP systolic 111–135; BP diastolic 80–95; PULSE 73–93; RESP 18–22; TEMP 36.4–36.7; O2SAT 93–98
[2021-08-15] MEDS: HYDROmorphone 1 mg/mL INJ 1 mL IVP (00:53)
[2021-08-15] MEDS: ciprofloxacin 400 MG/200 ML PREMIX 200 MG IV (01:41)
--- NOTE | 2021-08-15 01:47 | PM.HP ---
Providers/Chief Complaint Admitting Physician: Marylou Mcguire MD Primary Care Provider: Stephenie Osorio Chief Complaint: LUQ abd/back pain since yesterday History of Present Illness Celia Farfan is a 45 year old female with h/o chronic constipation, CKD presentin today with LLQ pain that started yesterday evening. Onset was sudden, no apparent trigger, raidating into back associated with nausea and vomiting, with last episode this morning. No recent change in bowel habits. Last B< yesterday, well formed, yellow brown in color. She has had similar symptoms on and off since April 2021, had a colonoscopy one month ago had rectal polyps with changes of tubulovillous adenoma, but otherwise no other obstructive lesions. Has a past h/o diverticulitis, however states pain today is worse than her diverticulitis episode. No blood in stools. CT abdomen/ pelvis perfromed today without any acute inflammatory changes noted, constipation with colonic stool seen. Review of Systems General: Reports: 10 or more systems reviewed and unremarkable except in HPI and below Const: Denies: fever(s), chills or body aches Eyes: Denies: change in vision, blurry vision or photophobia ENMT: Reports: hoarseness; Denies: throat pain, enlarged tonsils, odynophagia or nasal congestion Card: Denies: chest pain, palpitations, irregular heart rhythm, edema, swelling of feet/ankles, lightheadedness, pre-syncope, dyspnea on exertion or orthopnea Resp: Denies: dyspnea, productive cough, non-productive cough, wheezing, stridor, pain on inspiration, change in phlegm color, hemoptysis or chest congestion GI: Denies: abdominal pain, nausea, vomiting, hematemesis, coffee ground emesis, dysphagia, heartburn, diarrhea, constipation, GI cramping, change in stool character, hematochezia or melena : Denies: flank pain, difficulty voiding, dysuria, urinary frequency, urinary urgency, urinary hesitancy or hematuria Musc: Denies: neck pain, back pain, extremity pain, joint swelling, joint warmth or deformity Neuro: Denies: headache(s), numbness in extremities, weakness in extremities, sensory changes, difficulty walking, frequent falls, dizziness, vertigo, behavioral changes, Slurred speech present or seizure-like activity Psych: Denies: anxiety, depression, suicidal ideation or homicidal ideation Endo: Denies: polyuria, polydipsia, tired all the time, cold intolerance or hot flashes Les/Lymph: Denies: easy bruising or easy bleeding Medications/Allergies Home Medications Medication Instructions Recorded Confirmed Last Taken Type albuterol sulfate 90 mcg/actuation 2 puff INHALATION ONCE g 02/15/21 07/23/21 07/19/21 History aerosol inhaler amitriptyline 10 mg tablet 10 mg PO BEDTIME 02/15/21 07/23/21 07/19/21 History bumetanide 0.5 mg tablet 0.5 mg PO DAILY 02/15/21 07/23/21 07/20/21 History citalopram 20 mg tablet 20 mg PO DAILY 02/15/21 07/23/21 07/20/21 History colchicine 0.6 mg tablet 0.3 mg PO DAILY 02/15/21 07/23/21 07/20/21 History gabapentin 100 mg capsule 100 mg PO BID cap 02/15/21 07/23/21 07/20/21 History hydrochlorothiazide 25 mg tablet 25 mg PO DAILY 02/15/21 07/23/21 07/20/21 History omeprazole 20 mg tablet,delayed 20 mg PO DAILY 02/15/21 07/23/21 07/20/21 History release tizanidine 2 mg capsule 2 mg PO BID PRN 02/15/21 07/23/21 07/19/21 History ondansetron HCl [Zofran] 4 mg PO Q6H PRN #14 tab 04/30/21 07/23/21 07/20/21 Rx chlorpheniramine maleate 4 mg PO Q4H 07/20/21 07/23/21 07/20/21 History [Chlortab-4] fluticasone furoate 2 spray INTRANASAL DAILY 07/20/21 07/23/21 07/20/21 History potassium citrate 1,620 mg PO BID 07/20/21 07/23/21 07/20/21 History prochlorperazine maleate 5 mg PO Q8H PRN 07/20/21 07/23/21 Unknown History promethazine 25 mg PO Q6H PRN #20 tab 07/20/21 07/23/21 Unknown Rx Allergies Allergy/AdvReac Type Severity Reaction Status Date / Time latex Allergy Unknown Verified 07/23/21 11:52 lisinopril Allergy ADR/ALGY-Pa Verified 07/23/21 11:52 lpitations sulfamethoxazole Allergy ALGY-Rash Verified 07/23/21 11:52 [From Bactrim] trimethoprim [From Bactrim] Allergy ALGY-Rash Verified 07/23/21 11:52 PFSH Acute PFSH: Medical History (Updated 08/15/21 @ 06:34 by Marylou Mcguire MD) Asthma Colon polyps Fibromyalgia GERD (gastroesophageal reflux disease) 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 Hyperglycemia Hypertension Musculoskeletal pain Surgical History (Updated 08/15/21 @ 06:29 by Marylou Mcguire MD) History of carpal tunnel release of both wrists 2009 History of cholecystectomy lap- 2008 History of hysterectomy History of tubal ligation 2008 Family History Mother Hypertension Father Hypertension CAD (coronary artery disease) Grandfather Lung disease Denies family history of Diabetes Dementia Cancer Stroke Social History Second hand smoke exposure: No Alcohol intake: never Desire information about alcohol rehabilitation?: No Lives independently: Yes Household members: spouse Marital status: Vitals/I&O/Wt Last Vital Signs Temp 98.0 F 08/15/21 00:00 Pulse 84 08/15/21 00:00 Resp 20 H 08/15/21 00:53 BP 111/80 08/15/21 00:00 Pulse Ox 93 08/15/21 00:00 08/14/21 08/14/21 08/15/21 14:59 22:59 06:59 Intake Total 1000 / 1000 Balance 1000 / 1000 Weight last 48 hrs Weight 90.718 kg Physical Exam Narrative: EXAM NARRATIVE: General: No acute distress, AO x3 HEENT: PERRLA, pupils bilaterally equal and reactive, pallors not present Chest: Normal vesicular breath sounds, no added sounds, equal good air entry bilaterally CVS: S1-S2 regular, no murmurs, no tachycardia, no gallops, no rubs Abdomen: Soft, nontender, no organomegaly, bowel sounds present Neuro: No focal deficits, no facial deformity, AO x3, power 5/5 in all limbs Extremities: no edema, clubbing or cyanosis . Data : 08/14/21 20:35 08/14/21 20:35 Other Labs: Laboratory Results WBC 12.0 10^3/uL (4.0-10.0) H 08/14/21 20:35 RBC 5.15 10^6/uL (4.1-5.3) 08/14/21 20:35 Hgb 15.3 g/dL (11.5-15.3) 08/14/21 20:35 Hct 43.7 % (37.0-47.0) 08/14/21 20:35 MCV 84.9 fl (81-99) 08/14/21 20:35 MCH 29.7 pg (28.0-34.0) 08/14/21 20: MCHC 35.0 g/dL (30.0-36.0) 08/14/21 20:35 RDW 12.5 % (12.1-15.1) 08/14/21 20:35 Plt Count 351 10^3/cmm (130-400) 08/14/21 20:35 MPV 9.2 fL (7.4-10.4) 08/14/21 20:35 Neut % (Auto) 56.9 % 08/14/21 20:35 Lymph % (Auto) 35.1 % 08/14/21 20:35 [place] % (Auto) 5.1 % 08/14/21 20:35 Eos % (Auto) 1.7 % 08/14/21 20:35 Baso % (Auto) 0.7 % 08/14/21 20:35 Neut # (Auto) 6.84 10^3/uL (1.8-7.7) 08/14/21 20:35 Lymph # (Auto) 4.2 10^3/uL (0.8-4.8) 08/14/21 20:35 [place] # (Auto) 0.6 10^3/uL (0.2-0.9) 08/14/21 20:35 Eos # (Auto) 0.2 10^3/uL (0.0-0.8) 08/14/21 20:35 Baso # (Auto) 0.1 10^3/uL (0.0-0.1) 08/14/21 20:35 Nucleated RBC % (auto) 0 % 08/14/21 20:35 Nucleated RBCs # 0.0 /100WBC 08/14/21 20:35 Sodium 135 mmol/L (136-145) L 08/14/21 20:35 Potassium 2.6 mmol/L (3.5-5.1) L* 08/14/21 20:35 Chloride 89 mmol/L (98-107) L 08/14/21 20:35 Carbon Dioxide 31 mmol/L (22-29) H 08/14/21 20:35 Anion Gap 17.6 (5-19) 08/14/21 20:35 BUN 13 mg/dL (6-20) 08/14/21 20:35 Creatinine 1.6 mg/dL (0.5-0.9) H 08/14/21 20:35 GFR Calculation 34.7 mL/min (90-130) L 08/14/21 20:35 Glucose 101 mg/dL (65-115) 08/14/21 20:35 Calculated Osmolality 280 mOsm/kg (285-295) L 08/14/21 20:35 Lactic Acid 2.3 mmol/L (0.5-2.2) H 08/14/21 20:35 Lactic Acid (Sepsis) 1.2 mmol/L (0.5-2.2) 08/14/21 23:18 Calcium 9.3 mg/dL (8.5-10.5) 08/14/21 20:35 Total Bilirubin 0.5 mg/dL (0.15-1.2) 08/14/21 20:35 AST 52 U/L (0-32) H 08/14/21 20:35 ALT 66 U/L (0-33) H 08/14/21 20:35 Alkaline Phosphatase 114 IU/L (35-105) H 08/14/21 20:35 Total Protein 8.9 g/dL (6.6-8.7) H 08/14/21 20:35 Albumin 4.3 g/dL (3.5-5.2) 08/14/21 20:35 Globulin 4.6 g/dL (1.3-4.6) 08/14/21 20:35 Lipase 15 U/L (13-60) 08/14/21 20:35 HCG, Qual Negative (Negative) 08/14/21 20:35 Urine Color Yellow (Yellow) 08/14/21 20:45 Urine Appearance Sl hazy (CLEAR) 08/14/21 20:45 Urine pH 5 (5-7) 08/14/21 20:45 Ur Specific [place] 1.010 (1.005-1.030) 08/14/21 20:45 Urine Protein Neg (Negative) 08/14/21 20:45 Urine Glucose (UA) Norm (Normal) 08/14/21 20:45 Urine Ketones Negative (Negative) 08/14/21 20:45 Urine Blood 2+ (Negative) H 08/14/21 20:45 Urine Nitrate Positive (Negative) H 08/14/21 20:45 Urine Bilirubin Neg (Negative) 08/14/21 20:45 Urine Urobilinogen Norm mg/dL (Negative) 08/14/21 20:45 Ur Leukocyte Esterase 1+ (Negative) H 08/14/21 20:45 Urine RBC 5-10 /hpf (0-2) H 08/14/21 20:45 Urine WBC 10-15 /hpf (0-5) H 08/14/21 20:45 Ur Squamous Epith Cells 15-25 /hpf (0-5) H 08/14/21 20:45 Amorphous Sediment Not Reportable 08/14/21 20:45 Urine Bacteria 3+ /hpf (NONE) H 08/14/21 20:45 SARS-CoV-2 Ag (Rapid) Negative (Negative) 08/15/21 00:15 Impressions Abdomen/Pelvis CT 08/14/21 21:44 IMPRESSION: 1. Negative for focal acute inflammatory process in the abdomen or pelvis. 2. Hepatic steatosis. 3. Cholecystectomy. 4. Left kidney is markedly atrophic. 5. Right kidney cyst, negative for follow-up advised. 6. Constipation. COMMENTS: Consistent with the [employer] [place] [employer]'s Incidental Findings Committee white paper (J Am Amy Radiol 2018): Any incidental renal lesion less than 1 cm or classified as too small to characterize, or any incidental cystic renal lesion characterized as simple-appearing, is likely benign. No follow-up imaging is recommended for these lesions per consensus recommendations based on imaging criteria. Radiation Dose CTDIVOL = (mGy): DLP = 1786.72 (mGy-cm) A&P Assessment and plan (1) Abdominal pain: Status: Acute Qualifiers: Abdominal location: left lower quadrant Qualified Code(s): R10.32 - Left lower quadrant pain (2) Acute hypokalemia: Status: Acute (3) UTI (urinary tract infection): Status: Acute Qualifiers: Urinary tract infection type: acute cystitis Hematuria presence: without hematuria Qualified Code(s): N30.00 - Acute cystitis without hematuria (4) CKD (chronic kidney disease): Status: Acute Qualifiers: Chronic kidney disease stage: unspecified stage Qualified Code(s): N18.9 - Chronic kidney disease, unspecified Additional A&P Information Presenting with LLQ pain and intractable nausea and vomiting CT abdomen without acute pathology , shows constipation Recent colonoscopy for similar complaints one month ago with rectal polyps, otherwise no obstructing lesions or diverculitis/colitis Mag citrate, bowel regimen UA + for UTI, urine cx pending, prior cx with E.coli resistant to FQ, start Ceftriaxone 1g iv q24h Less likely pyelonephritis, no CVA tenderness CKD, cr baseline 1.3-1.5 Hypokalemia, 2.6, may be 2/2 GI losses from vomiting, repleted iv, recheck with am labs Attestations Medical Necessity Statement*: observation admission for pain control, iv hydration, replete leukocytes, iv abx for UTI Coding Level of Care Code Acute Doll Eye Setter for Chg Fwd Diagnoses Abdominal pain R10.32 Abdominal location: left lower quadrant Acute hypokalemia E87.6 UTI (urinary tract infection) N30.00 Urinary tract infection type: acute cystitis Hematuria presence: without hematuria CKD (chronic kidney disease) N18.9 Chronic kidney disease stage: unspecified stage
[2021-08-15 02:17] LABS: SARS Covid-2 Antigen Negative (Negative)
[2021-08-15] MEDS: famotidine 20 mg/2 mL INJ IVP ×2 (02:20→17:10)
[2021-08-15] MEDS: ondansetron 2 mg/ML SDV 2 mL 4 MG IVP ×2 (02:20→11:09)
[2021-08-15] MEDS: sodium chlor 0.9% + KCl 20 mEq 20 MEQ/1,000 ML BAG 75 MEQ IV ×2 (02:23→17:09)
[2021-08-15] MEDS: metroNIDAZOLE IV 500 MG/100 ML PREMIX 100 MG IV (03:27)
[2021-08-15] MEDS: HYDROcodone-acetaminophen 5-325 mg Tablet 1 TAB PO ×2 (05:53→19:39)
[2021-08-15 06:35] LABS: Thyroid Stimulating Hormone 5.11 uIU/mL (0.27-4.20)
[2021-08-15 07:50] LABS: Basophils # 0.1 10^3/uL (0.0-0.1); Basophils % 0.7 %; Eosinophils # 0.1 10^3/uL (0.0-0.8); Eosinophils % 0.7 %; Hematocrit 39.7 % (37.0-47.0); Hemoglobin 13.3 g/dL (11.5-15.3); Lymphocytes # 1.5 10^3/uL (0.8-4.8); Lymphocytes % 19.7 %; Mean Corpuscular HGB Conc 33.5 g/dL (30.0-36.0); Mean Corpuscular Hemoglobin 29.5 pg (28.0-34.0); Mean Platelet Volume 9.6 fL (7.4-10.4); Monocytes # 0.5 10^3/uL (0.2-0.9); Monocytes % 6.5 %; Neutrophils # 5.46 10^3/uL (1.8-7.7); Nucleated Red Blood Cells % 0 %; Platelet Count 271 10^3/cmm (130-400); Red Blood Count 4.51 10^6/uL (4.1-5.3); Red Cell Distribution Width 12.6 % (12.1-15.1); White Blood Count 7.6 10^3/uL (4.0-10.0)
[2021-08-15 08:06] LABS: Alanine Aminotransferase 151 U/L (0-33); Albumin Level 3.7 g/dL (3.5-5.2); Alkaline Phosphatase 141 IU/L (35-105); Anion Gap 17.8 (5-19); Aspartate Amino Transferase 247 U/L (0-32); Blood Urea Nitrogen 13 mg/dL (6-20); Calcium 8.3 mg/dL (8.5-10.5); Carbon Dioxide 27 mmol/L (22-29); Chloride 92 mmol/L (98-107); Glomerular Filtration Rate 37.4 mL/min (90-130); Glucose 115 mg/dL (65-115); Osmolality Calculated 279 mOsm/kg (285-295); Sodium 134 mmol/L (136-145); Total Bilirubin 0.8 mg/dL (0.15-1.2); Total Protein 7.7 g/dL (6.6-8.7)
[2021-08-15 08:10] LABS: Potassium 2.8 mmol/L (3.5-5.1)
--- NOTE | 2021-08-15 08:37 | PC.NURSE ---
notified Dr Clifton that patient's potassium is 2.8. per Dr Clifton, PO potassium for now.
[2021-08-15] MEDS: cefTRIAXone 1,000 MG in sodium chloride 0.9% (plus) 50 ML 100 MG IV (09:04)
[2021-08-15] MEDS: sennosides-docusate Tablet 1 TAB PO ×2 (09:05→17:10)
[2021-08-15] MEDS: lactulose oral liq 20 gm/30 mL UDC 30 GM PO (09:05)
[2021-08-15] MEDS: HYDROmorphone 1 mg/mL INJ 1 mL 0.4 MG IVP (09:05)
[2021-08-15] MEDS: magnesium citrate Btl 296 mL 148 ML PO (09:06)
[2021-08-15] MEDS: lidocaine 1% 5 ML in potassium chloride premix 100 ML 25 ML IV (09:21)
[2021-08-15 09:42] LABS: Free T4 Free Thyroxine 1.26 ng/dL (0.82-1.77)
--- NOTE | 2021-08-15 13:35 | CTR_ITS ---
PROCEDURE INFORMATION: Exam: CT Lumbar Spine Without Contrast Exam date and time: 08/15/2021 1:35 PM Age: 45 years old Clinical indication: Low back pain; Patient HX: C/O L flank/pelvic pain; Additional info: Llq pain TECHNIQUE: Imaging protocol: Computed tomography images of the lumbar spine without contrast. Radiation optimization: All CT scans at this facility use at least one of these dose optimization techniques: automated exposure control; mA and/or kV adjustment per patient size (includes targeted exams where dose is matched to clinical indication); or iterative reconstruction. COMPARISON: CR XR lumbar spine 2-3V* [id number] 05/12/2021 4:37 PM RADIATION DOSE METRICS: Total DLP (mGy-cm): 2201.91 FINDINGS: Vertebrae: No acute fracture. Normal alignment. Mild multilevel degenerative disc disease and spondylosis. Discs/Spinal canal/Neural foramina: Multilevel mild degenerative disc disease and spondylosis without stenosis or disc herniation. Liver: Severe fatty infiltration of the liver. Gallbladder and bile ducts: Surgical clips in the gallbladder fossa consistent with cholecystectomy. Kidneys and ureters: Severe left renal atrophy. Axial series 3, image 17. One or more focal cortical defects in the right kidney, representing sequela from previous infection or infarction. Soft tissues: Unremarkable. Other findings: . PROCEDURE INFORMATION: CT/CT lumbar spine wo con* [id number] IMPRESSION: 1. Severe fatty infiltration of the liver. 2. Severe left renal atrophy. Axial series 3, image 17. 3. One or more focal cortical defects in the right kidney, representing sequela from previous infection or infarction. 4. Post cholecystectomy 5. No acute spine findings. Radiation Dose CTDIVOL = (mGy): DLP = 2201.91 (mGy-cm)
--- NOTE | 2021-08-15 13:37 | PM.PN ---
Subjective Subjective: Interval history: Morning patient was still complaining of left quadrant pain which is radiating towards her lower back afebrile no worsening of leukocytosis She is not endorsing dysuria urinary frequency Vitals/I&O/Wt Last Vital Signs Temp 97.7 F 08/15/21 11:57 Pulse 91 08/15/21 11:57 Resp 18 08/15/21 11:57 BP 127/95 08/15/21 11:57 Pulse Ox 95 08/15/21 11:57 08/14/21 08/15/21 08/15/21 22:59 06:59 14:59 Intake Total 1000 / 1000 1070 / 1070 Balance 1000 / 1000 1070 / 1070 Weight last 48 hrs Weight 98.43 kg Weight 90.718 kg Physical Exam Narrative: EXAM NARRATIVE: Patient was laying comfortably However has mild rebound tenderness left lower quadrant No signs of active appendicitis S1, S2 Bilateral breath sounds without audible stridor or wheezing EOMI, PERRLA Morbidly obese No neurological deficits Visceral obesity, soft abdomen no diffuse signs of peritonitis,, CVA tenderness negative Data : 08/15/21 05:47 08/15/21 05:47 A&P Assessment and plan (1) Acute hypokalemia: Status: Acute (2) Abdominal pain: Status: Acute Qualifiers: Abdominal location: left lower quadrant Qualified Code(s): R10.32 - Left lower quadrant pain (3) UTI (urinary tract infection): Status: Acute Qualifiers: Hematuria presence: without hematuria Urinary tract infection type: acute cystitis Qualified Code(s): N30.00 - Acute cystitis without hematuria (4) Acute kidney injury superimposed on chronic kidney disease: Status: Acute Additional A&P Information UTI Currently on ceftriaxone, afebrile leukocytosis has improved No signs of pyelonephritis, CVA tenderness negative CT abdomen pelvis unremarkable We will follow up with urine culture Left lower quadrant pain No evidence of diverticulitis on CT abdomen pelvis No active signs of appendicitis We will request lumbar spine to rule out lumbar radiculopathy, will request ultrasound of ovaries with Doppler Recent colonoscopy for similar complaints one month ago with rectal polyps, otherwise no obstructing lesions or diverculitis/colitis Hypokalemia secondary to nausea and vomiting: Repleted Check magnesium level Full code Regular diet DVT prophylaxis Heparin Anticipating discharge tomorrow if clinically stable Attestations Medical Necessity Statement*: Anticipating discharge tomorrow if clinically stable Time Spent in Patient Care: 16 - 35 minutes Coding Level of Care Code Acute Terrazzo Mechanic Helper for Chg Fwd Diagnoses Acute hypokalemia E87.6 Abdominal pain R10.32 Abdominal location: left lower quadrant UTI (urinary tract infection) N30.00 Hematuria presence: without hematuria Urinary tract infection type: acute cystitis Acute kidney injury superimposed on chronic kidney disease N17.9; N18.9
--- NOTE | 2021-08-15 13:39 | PC.CHAP ---
Pastoral Care Encounter/Spiritual Assessment Type of Contact [] Declined spud driller visit [] Patient/Family/Request visit [] Outpatient visit [] Follow-up visit [] Physician referral [] Code/Alert [XX] Routine visit [] Staff referral [] Actively dying [] Patient sleeping [] Family support [] [] Out of room [] Palliative care [] [] Receiving care in room [] Pre-surgical visit [] Trauma [] Long length of stay [] ICU visit [XX] Other: spouse present at bedside Relational/Emotional Strength [XX] Patient feels connected with others/family/visitors/staff [] Distress [] Loneliness/isolation [] Abandonment Spirituality of Patient [XX] Person of Milagro [] Attends Druze of their Milagro [XX] Believes in Prayer [] Reads Bible or Quaker materials [XX] There are Spiritual issues to be addressed Insights Analyst Interventions [XX] Prayer [XX] Active listening [XX] Non-anxious presence [] Spiritual/emotional support [] Crisis/trauma care [] Spiritual counseling [] Bereavement support [] Provided bereavement packet [] Provided Bible/devotional materials [] Provided toy/stuffed animal, coloring book to patient or family member [] Provided Communion [] Anointing/[place] [] Salvation [XX] Completed spiritual assessment [] Other: Impact on Illness or Injury [] Angry [] Fearful [] Anxious [] Often cries [] Exhaustion [] Unable to work [] Unable to attend jehovah's witness [] Unable to walk/stand [] Unable to read [] Unable to drive [] Unable to eat/drink [] Unable to sleep [] Unable to be with family [] Patient intubated [] Other: Summary: Pt unsure what the source of discomfort is; work-up still happening. Pt's present and did most of the talking. Pt welcomed prayer and expects to be put on sikhism prayer chains although she does not attend sikhism herself. Spiritual student support counselor was with pt's and focused on scriptural contexts/sources/interpretations and head knowledge vs letting the Spirit speak to his heart. Time spent with patient: 20 mins
[2021-08-15] MEDS: heparin 5,000 unit/mL INJ 1 mL 5000 UNIT SUBCUT ×2 (17:14→23:39)
[2021-08-15] MEDS: acetaminophen 325 mg Tablet 650 MG PO (23:39)
[2021-08-16] MEDS: famotidine 20 mg/2 mL INJ IVP ×2 (02:15→13:50)
[2021-08-16 03:09] VITALS: BP 117/82; PULSE 70; RESP 16; TEMP 36.7; O2SAT 96
[2021-08-16] MEDS: HYDROcodone-acetaminophen 5-325 mg Tablet 1 TAB PO ×2 (06:34→15:39)
[2021-08-16] MEDS: sodium chlor 0.9% + KCl 20 mEq 20 MEQ/1,000 ML BAG 75 MEQ IV ×2 (06:35→15:39)
[2021-08-16] MEDS: cefTRIAXone 1,000 MG in sodium chloride 0.9% (plus) 50 ML 100 MG IV (06:35)
[2021-08-16] MEDS: sennosides-docusate Tablet 1 TAB PO ×2 (07:45→15:39)
[2021-08-16] MEDS: heparin 5,000 unit/mL INJ 1 mL 5000 UNIT SUBCUT ×4 (07:45→23:43)
[2021-08-16 07:52] LABS: Basophils # 0.1 10^3/uL (0.0-0.1); Eosinophils # 0.3 10^3/uL (0.0-0.8); Eosinophils % 5.4 %; Hemoglobin 12.2 g/dL (11.5-15.3); Lymphocytes # 1.9 10^3/uL (0.8-4.8); Mean Corpuscular Hemoglobin 29.5 pg (28.0-34.0); Mean Corpuscular Volume 89.4 fl (81-99); Mean Platelet Volume 9.3 fL (7.4-10.4); Monocytes # 0.4 10^3/uL (0.2-0.9); Monocytes % 7.5 %; Neutrophils # 2.25 10^3/uL (1.8-7.7); Neutrophils % 46.9 %; Nucleated Red Blood Cells % 0 %; Platelet Count 207 10^3/cmm (130-400); Red Blood Count 4.14 10^6/uL (4.1-5.3); Red Cell Distribution Width 12.7 % (12.1-15.1); White Blood Count 4.8 10^3/uL (4.0-10.0)
[2021-08-16 07:53] VITALS: BP 130/85; PULSE 74; RESP 16; TEMP 36.6; O2SAT 95
[2021-08-16 08:16] LABS: Alanine Aminotransferase 143 U/L (0-33); Albumin Level 3.3 g/dL (3.5-5.2); Alkaline Phosphatase 123 IU/L (35-105); Anion Gap 11.9 (5-19); Aspartate Amino Transferase 132 U/L (0-32); Blood Urea Nitrogen 8 mg/dL (6-20); C Reactive Protein 31.7 mg/L (0.0-4.9); Calcium 8.2 mg/dL (8.5-10.5); Carbon Dioxide 30 mmol/L (22-29); Chloride 99 mmol/L (98-107); Globulin 3.5 g/dL (1.3-4.6); Glomerular Filtration Rate 44.1 mL/min (90-130); Glucose 92 mg/dL (65-115); Osmolality Calculated 284 mOsm/kg (285-295); Sodium 138 mmol/L (136-145); Total Bilirubin 0.5 mg/dL (0.15-1.2); Total Protein 6.8 g/dL (6.6-8.7)
[2021-08-16 08:22] LABS: Procalcitonin 0.22 ng/mL (0-0.5)
[2021-08-16 08:25] LABS: Potassium 2.9 mmol/L (3.5-5.1)
[2021-08-16 11:07] VITALS: BP 119/71; PULSE 75; RESP 17; TEMP 36.6; O2SAT 97
[2021-08-16 15:22] VITALS: BP 143/80; PULSE 86; RESP 16; TEMP 36.8; O2SAT 95
--- NOTE | 2021-08-16 17:51 | PM.PN ---
Subjective Subjective: Interval history: Patient seen and examined this morning. No acute events overnight. Her abdominal pain has improved. Urine culture positive for gm negative rods. Sensitivity pending. Vitals/I&O/Wt Last Vital Signs Temp 98.2 F 08/16/21 15:22 Pulse 86 08/16/21 15:22 Resp 16 08/16/21 15:22 BP 143/80 08/16/21 15:22 Pulse Ox 95 08/16/21 15:22 08/16/21 08/16/21 08/16/21 06:59 14:59 22:59 Intake Total 1000 / 3175 170 / 170 680 / 850 Balance 1000 / 3175 170 / 170 680 / 850 Weight last 48 hrs Weight 98.43 kg Physical Exam Narrative: EXAM NARRATIVE: EXAM NARRATIVE: Patient was sitting comfortably in bed No signs of active appendicitis S1, S2 normal, no rubs, gallops, murmers Clear to auscultation, Bilateral breath sounds without audible stridor or wheezing EOMI, PERRLA Morbidly obese No neurological deficits Visceral obesity, soft abdomen no diffuse signs of peritonitis,, CVA tenderness negative Left side of abdomen mildly tender to palpation but significant improvement compared to yesterday. Data : 08/16/21 07:33 08/16/21 07:33 Micro: Microbiology 08/14/21 20:45 Urine Culture - Preliminary Urine,Clean Catch Gram Negative Rods A&P Assessment and plan (1) UTI (urinary tract infection): UTI Currently on ceftriaxone, afebrile leukocytosis has improved No signs of pyelonephritis, CVA tenderness negative CT abdomen pelvis unremarkable We will follow up with urine culture. Gram negative rods growing. Final sensitivity pending. Left lower quadrant pain No evidence of diverticulitis on CT abdomen pelvis No active signs of appendicitis CT lumbar spine negative for acute pathology. Will order ovarian ultrasound. Recent colonoscopy for similar complaints one month ago with rectal polyps, otherwise no obstructing lesions or diverculitis/colitis Hypokalemia secondary to nausea and vomiting: Repleted Check magnesium level Full code Regular diet DVT prophylaxis Heparin Anticipating discharge tomorrow if clinically stable Status: Acute Qualifiers: Hematuria presence: without hematuria Urinary tract infection type: acute cystitis Qualified Code(s): N30.00 - Acute cystitis without hematuria (2) Acute kidney injury superimposed on chronic kidney disease: Status: Acute (3) Abdominal pain: Status: Acute Qualifiers: Abdominal location: left lower quadrant Qualified Code(s): R10.32 - Left lower quadrant pain (4) Acute hypokalemia: Status: Acute Attestations Medical Necessity Statement*: awaiting urine culture sensitivity. anticipate dc tomorrow. Time Spent in Patient Care: less than 15 minutes Coding Level of Care Code Acute An/Sqq 89(V)15 Sonar System Journeyman for [facility] Fwd Diagnoses UTI (urinary tract infection) N30.00 Hematuria presence: without hematuria Urinary tract infection type: acute cystitis Acute kidney injury superimposed on chronic kidney disease N17.9; N18.9 Abdominal pain R10.32 Abdominal location: left lower quadrant Acute hypokalemia E87.6
[2021-08-16] MEDS: potassium chloride oral liq 20 mEq/15 mL UDC 40 MEQ PO (19:52)
[2021-08-16] MEDS: potassium chloride oral liq 20 mEq/15 mL UDC PO (19:53)
[2021-08-16 20:00] VITALS: BP 132/85; PULSE 80; RESP 17; TEMP 36.8; O2SAT 94
[2021-08-17] VITALS: BP 111/65; PULSE 85; RESP 16; TEMP 36.2; O2SAT 94
[2021-08-17] MEDS: famotidine 20 mg/2 mL INJ IVP (02:08)
[2021-08-17 03:59] VITALS: BP 127/76; PULSE 80; RESP 17; TEMP 36.2; O2SAT 97
[2021-08-17 05:34] LABS: Basophils % 0.7 %; Eosinophils # 0.3 10^3/uL (0.0-0.8); Eosinophils % 5.6 %; Hematocrit 37.1 % (37.0-47.0); Hemoglobin 12.2 g/dL (11.5-15.3); Lymphocytes # 2.6 10^3/uL (0.8-4.8); Lymphocytes % 47.4 %; Mean Corpuscular HGB Conc 32.9 g/dL (30.0-36.0); Mean Corpuscular Hemoglobin 29.7 pg (28.0-34.0); Mean Corpuscular Volume 90.3 fl (81-99); Mean Platelet Volume 9.8 fL (7.4-10.4); Monocytes # 0.3 10^3/uL (0.2-0.9); Monocytes % 6.1 %; Neutrophils # 2.14 10^3/uL (1.8-7.7); Neutrophils % 39.6 %; Nucleated Red Blood Cells % 0 %; Platelet Count 215 10^3/cmm (130-400); Red Blood Count 4.11 10^6/uL (4.1-5.3); White Blood Count 5.4 10^3/uL (4.0-10.0)
[2021-08-17 06:02] LABS: Blood Urea Nitrogen 7 mg/dL (6-20); Calcium 8.6 mg/dL (8.5-10.5); Carbon Dioxide 26 mmol/L (22-29); Chloride 107 mmol/L (98-107); Glomerular Filtration Rate 53.5 mL/min (90-130); Glucose 78 mg/dL (65-115); Osmolality Calculated 291 mOsm/kg (285-295); Sodium 142 mmol/L (136-145)
[2021-08-17] MEDS: cefTRIAXone 1,000 MG in sodium chloride 0.9% (plus) 50 ML 100 MG IV (06:04)
[2021-08-17 06:09] LABS: Anion Gap 13.1 (5-19); Potassium 4.1 mmol/L (3.5-5.1)
[2021-08-17] MEDS: sodium chlor 0.9% + KCl 20 mEq 20 MEQ/1,000 ML BAG 75 MEQ IV (06:14)
[2021-08-17 07:11] VITALS: BP 146/91; PULSE 68; RESP 16; TEMP 37.1; O2SAT 95
[2021-08-17] MEDS: heparin 5,000 unit/mL INJ 1 mL 5000 UNIT SUBCUT (08:59)
[2021-08-17] MEDS: sennosides-docusate Tablet 1 TAB PO (08:59)
--- NOTE | 2021-08-17 10:26 | PC.CHAP ---
Pastoral Care Encounter/Spiritual Assessment Type of Contact [] Declined yard goods salesperson visit [] Patient/Family/Request visit [] Outpatient visit [] Follow-up visit [] Physician referral [] Code/Alert [x] Routine visit [] Staff referral [] Actively dying [] Patient sleeping [] Family support [] [] Out of room [] Palliative care [] [] Receiving care in room [] Pre-surgical visit [] Trauma [] Long length of stay [] ICU visit [] Other: Relational/Emotional Strength [x] Patient feels connected with others/family/visitors/staff [] Distress [] Loneliness/isolation [] Abandonment Spirituality of Patient [x] Person of Milagro [] Attends Adventist of their Milagro [] Believes in Prayer [] Reads Bible or Church materials [] There are Spiritual issues to be addressed Whiskey Filterer Interventions [x] Prayer [x] Active listening [x] Non-anxious presence [x] Spiritual/emotional support [] Crisis/trauma care [] Spiritual counseling [] Bereavement support [] Provided bereavement packet [] Provided Bible/devotional materials [] Provided toy/stuffed animal, coloring book to patient or family member [] Provided Communion [] Anointing/[place] [] Salvation [x] Completed spiritual assessment [] Other: Impact on Illness or Injury [] Angry [] Fearful [] Anxious [] Often cries [] Exhaustion [] Unable to work [] Unable to attend orthodox [] Unable to walk/stand [] Unable to read [] Unable to drive [] Unable to eat/drink [] Unable to sleep [] Unable to be with family [] Patient intubated [] Other: Summary Pt alert and says she is much better. Expecting to be discharged later today. Time spent with patient 5m
--- NOTE | 2021-08-17 11:13 | PC.NURSE ---
discharge instructions given to patient. patient verbalized understanding of instructions. patient waiting on to arrive for ride home.
[2021-08-17 12:21] VITALS: BP 146/91; PULSE 68; RESP 16; TEMP 37.1; O2SAT 95
--- NOTE | 2021-08-17 12:21 | PC.NURSE ---
patient walked to private vehicle.
--- NOTE | 2021-08-17 12:35 | PM.DCS ---
Discharge Providers Date of Admission: 08/15/21 01:34 Date of Discharge: August 17, 2021 Attending Provider at Admission: Marylou Mcguire MD Attending Provider at Discharge: Annita Wong MD Primary Care Provider: Stephenie Osorio Diagnoses at Discharge Discharge Diagnosis (1) UTI (urinary tract infection): Status: Acute Qualifiers: Hematuria presence: without hematuria Urinary tract infection type: acute cystitis Qualified Code(s): N30.00 - Acute cystitis without hematuria (2) Acute kidney injury superimposed on chronic kidney disease: Status: Acute (3) Abdominal pain: Status: Acute Qualifiers: Abdominal location: left lower quadrant Qualified Code(s): R10.32 - Left lower quadrant pain (4) Acute hypokalemia: Status: Acute Reason for Visit Reason for Visit: LUQ abd/back pain since yesterday Hospital Course Hospital Course HPI as per Dr. Etienne Cohnviktor Farfan is a 45 year old female with h/o chronic constipation, CKD presentin today with LLQ pain that started yesterday evening. Onset was sudden, no apparent trigger, raidating into back associated with nausea and vomiting, with last episode this morning. No recent change in bowel habits. Last B< yesterday, well formed, yellow brown in color. She has had similar symptoms on and off since April 2021, had a colonoscopy one month ago had rectal polyps with changes of tubulovillous adenoma, but otherwise no other obstructive lesions. Has a past h/o diverticulitis, however states pain today is worse than her diverticulitis episode. No blood in stools. CT abdomen/ pelvis perfromed today without any acute inflammatory changes noted, constipation with colonic stool seen. Course: Patient was admitted for LLQ pain. Urine culture was positive for gram negative rods. Final result showed E.Coli sensitive to ceftriaxone. Patient has had UTI in past as well with e.coli. I discharged patient on cefpodoxime for total of 7 days (including inpatient IV ceftriaxone). Gave her referral to outpatient urology for reccurant UTI. Patient has left atrophic kidney and scarring present on right kidney secondary to previous infection. Patient was quite concerned on why she gets UTI's. She also had GERALDO during this hospital stay. Creatinine went back to baseline at discharge. I held gabapentin and asked patient to follow with PCP before resumption and to recheck BMP in 1 week. Physical Exam Narrative: EXAM NARRATIVE: Patient was sitting comfortably in bed No signs of active appendicitis S1, S2 normal, no rubs, gallops, murmers Clear to auscultation, Bilateral breath sounds without audible stridor or wheezing EOMI, PERRLA Morbidly obese No neurological deficits Visceral obesity, soft abdomen no diffuse signs of peritonitis,, CVA tenderness negative Left side of abdomen mildly tender to palpation but significant improvement compared to yesterday. Discharge Data Data Completed and Pending: Completed Studies During Hospitalization Category Date Time Status CT abdomen pelvis wo con [id number] Urge nt Cat Scan 08/14/21 21:[address] lumbar spine w o con* [id number] Routi ne Cat Scan 08/15/21 13:35 Completed Labs from last 24 hours 08/17/21 08/17/21 04:42 04:42 WBC 5.4 RBC 4.11 Hgb 12.2 Hct 37.1 MCV 90.3 MCH 29.7 MCHC 32.9 RDW 13.0 Plt Count 215 MPV 9.8 Neut % (Auto) 39.6 Lymph % (Auto) 47.4 [place] % (Auto) 6.1 Eos % (Auto) 5.6 Baso % (Auto) 0.7 Neut # (Auto) 2.14 Lymph # (Auto) 2.6 [place] # (Auto) 0.3 Eos # (Auto) 0.3 Baso # (Auto) 0.0 Nucleated RBC % (a uto) 0 Nucleated RBCs # 0.0 Sodium 142 Potassium 4.1 Chloride 107 Carbon Dioxide 26 Anion Gap 13.1 BUN 7 Creatinine 1.1 H GFR Calculation 53.5 L Glucose 78 Calculated Osmolal ity 291 Calcium 8.6 Vitals: Last Vital Signs Temp 98.7 F 08/17/21 12:21 Pulse 68 08/17/21 12:21 Resp 16 08/17/21 12:21 BP 146/91 08/17/21 12:21 Pulse Ox 95 08/17/21 12:21 Discharge Plan Discharge Patient Disposition: Home Condition: Stable Prescriptions: New cefpodoxime 200 mg tablet 200 mg PO BID Qty: 8 RF: 0 Continued colchicine 0.6 mg tablet 1.2 mg PO DAILY RF: 0 omeprazole 20 mg tablet,delayed release (DR/EC) 20 mg PO DAILY RF: 0 albuterol sulfate 90 mcg/actuation HFA aerosol inhaler 2 puff inhalation Q6H PRN (Reason: Shortness Of Breath) RF: 0 bumetanide 0.5 mg tablet 0.5 mg PO DAILY RF: 0 hydrochlorothiazide 25 mg tablet 25 mg PO DAILY RF: 0 citalopram 20 mg tablet 20 mg PO DAILY RF: 0 tizanidine 2 mg capsule 2 mg PO BID PRN (Reason: Pain) RF: 0 ondansetron HCl [Zofran] 4 mg tablet 4 mg PO Q6H PRN (Reason: nausea and vomiting) Qty: 14 RF: 0 chlorpheniramine maleate 4 mg Tablet 4 mg PO Q4H PRN (Reason: Allergy Symptoms) RF: 0 potassium citrate 15 mEq Tablet Extended Release 1,620 mg PO TID RF: 0 promethazine 25 mg tablet 25 mg PO Q6H PRN (Reason: nausea and vomiting) Qty: 20 RF: 0 amitriptyline 25 mg Tablet 25 mg PO BEDTIME RF: 0 fluticasone propionate 50 mcg/actuation spray,suspension 2 spray INTRANASAL DAILY PRN (Reason: Congestion) RF: 0 Held gabapentin 100 mg capsule 200 mg PO BID RF: 0 Hold Instructions: resume after seeing PCP. Holding due to GERALDO. Discharge Orders: Discharge Order (Routine); Ordered 08/17/21 Ordered By: Annita Wong Other Ambulatory Orders: Basic Metabolic Panel (Routine) Timeframe: 1 Week Facility: [facility] - Location: Lab - Main Lab Ordered By: Annita Wong Referrals: Darrion Camargo MD [Physician] - (Recurrent UTI DR CAMARGO OFFICE WILL CALL WITH APPOINTMENT) Stephenie Osorio [Primary Care Provider] - 08/24/21 1:00 pm Discharge Diet: Cardiac Discharge Activity: Resume usual activity Patient Instructions: Cefpodoxime Proxetil (By mouth), Urinary Tract Infection in Women (DC), Opioid Safety Activity Restrictions/Additional Instructions: Follow up with PCP and urology outpatient. Discharge Attestations Time Spent in Discharge Care*: less than 30 min Status at Discharge: Cognitive status at discharge: cognitively intact, Quality Metrics Clinical Quality Measures During this hospital stay, did patient experience: None Coding Level of Care Code Acute Chg FW DC note Diagnoses UTI (urinary tract infection) N30.00 Hematuria presence: without hematuria Urinary tract infection type: acute cystitis Acute kidney injury superimposed on chronic kidney disease N17.9; N18.9 Abdominal pain R10.32 Abdominal location: left lower quadrant Acute hypokalemia E87.6
--- NOTE | 2021-08-18 15:42 | PC.SOCIAL ---
Patient returned call and indicates she is not having much pain since discharge. She has not picked up medications but plans to do so today. We discussed importance of obtaining medication and reviewed location of medication. We discussed she should take pm dose once picked up today then resume twice a day dosing tomorrow and take to completion to help clear up uti. She indicates being weak and strength has not returned and this nurse encouraged increase activity as able to tolerate. Patient indicates she has been getting a little nauseated as she gets up and moves around but this was happening prior to coming in and has been an issue for awhile. This nurse discussed if not related to UTI may be soemething with inner ear causing this and patient indicates she does already have Meclizine to help with this. We discussed other option that physician may consider if continue and she will follow ujp with provider. Reviewed lab work ordered to follow up on electrolytes and kidney function and explained can be done at PCP office or at main lab. We reviewed follow up appt on 08/24/21 and she plans to attend. Dr Lara office has called and left message she will return that call to get appt date and time. No further questions or concerns voiced at this time.
== END 2021-08-17 12:22 | disposition home or self-care (01) ==
LOC: ER 23:27 → MEDSURG 23:45
PROVIDERS: Internal Medicine; Physician Assistant; Admitting Provider Student in an Organized Health Care Education/Training Program; Emergency Provider Family Medicine; PCP Registered Nurse; Visit Provider Internal Medicine
DX: N30.00 Acute cystitis without hematuria (principal); N17.9 Acute kidney failure, unspecified; N18.9 Chronic kidney disease, unspecified; I12.9 Hypertensive chronic kidney disease with stage 1 through stage 4 chronic kidney disease, or unspecified chronic kidney disease; E87.6 Hypokalemia; J45.909 Unspecified asthma, uncomplicated; M79.7 Fibromyalgia; Z82.49 Family history of ischemic heart disease and other diseases of the circulatory system
CPT/HCPCS: 36415; 72131; 74176; 80048; 80053; 81001; 83605; 83690; 83735; 84145; 84439; 84443; 84703; 85025; 86140; 87077; 87086; 87186; 87426; 96365; 96367; 96372; 96375; 99285; G0378; J0696; J0744; J1170; J1644; J2270; J2405; J3480; J3490; J7030; S0030

== ENCOUNTER 2021-08-29 09:11 | Emergency (ER) | payer OTHER, SELFPAY ==
[2021-08-29 09:23] VITALS: BP 124/85; PULSE 75; RESP 22; TEMP 36.9; O2SAT 97
--- NOTE | 2021-08-29 09:32 | XRR_ITS ---
PROCEDURE INFORMATION: Exam: XR Left Ankle Exam date and time: 08/29/2021 9:32 AM Age: 45 years old Clinical indication: Injury or trauma; Fall; Blunt trauma; Ankle; Left; Additional info: Pain/possible injury TECHNIQUE: Imaging protocol: XR Left ankle. Views: 3 or more views. COMPARISON: No relevant prior studies available. FINDINGS: Bones/joints: Bones intact and normally aligned. Soft tissues: Normal. XR/XR ankle LT min 3V* [id number] IMPRESSION: No acute radiographic findings. Radiation Dose CTDIVOL = (mGy): DLP = (mGy-cm)
--- NOTE | 2021-08-29 09:32 | XRR_ITS ---
PROCEDURE INFORMATION: Exam: XR Left Foot Exam date and time: 08/29/2021 9:32 AM Age: 45 years old Clinical indication: Injury or trauma; Fall; Blunt trauma; Foot; Left; Additional info: Pain/possible injury TECHNIQUE: Imaging protocol: XR Left foot. Views: 3 or more views. COMPARISON: CR (LOW EXM, ) 08/29/2021 9:37:04 AM FINDINGS: Bones/joints: Bones intact and normally aligned. Soft tissues: Normal. XR/XR foot LT min 3V* [id number] IMPRESSION: No acute radiographic findings. Radiation Dose CTDIVOL = (mGy): DLP = (mGy-cm)
--- NOTE | 2021-08-29 09:35 | W.ED.LOWEXIN ---
HPI - Extremity Injury (Lower) General: Chief Complaint: Extremity Injury, Lower Stated Complaint: L ANKLE PAIN/INJURY Time Seen by Provider: 08/29/21 09:12 Source: patient Mode of arrival: wheelchair Limitations: no limitations History of Present Illness: HPI Narrative: Patient is a 45-year-old female who presents to ED today with complaint of left foot and ankle pain. Patient denies any known injury but states yesterday she did accidentally rolled out of bed and possibly injured it then. She states she woke up this morning with pain to her foot and ankle and states she cannot ambulate secondary to discomfort. She has not noticed any swelling. She has not noticed any color or temperature changes in the extremity. complaint: ankle injury and foot injury Onset (ago): day(s) (possibly yesterday) Injury: Left: ankle and foot Place: home Relieving factors: immobilization Exacerbating factors: weight bearing, movement and palpation Associated symptoms: Reports inability to bear weight Other symptoms: none Treatments prior to arrival: cold therapy and heart therapy Review of Systems Const: Denies: fever(s), chills, body aches, fatigue or malaise Card: Denies: chest pain Resp: Denies: dyspnea GI: Denies: nausea or vomiting Musc: Reports: extremity pain and joint pain; Denies: extremity swelling, joint swelling, joint redness or joint warmth Skin/Breast: Denies: rash or changes in skin color Neuro: Denies: numbness in extremities, weakness in extremities or sensory changes PFS ED PFSH: Medical History (Updated 08/29/21 @ 10:02 by MERY Ramos) Asthma Colon polyps Fibromyalgia GERD (gastroesophageal reflux disease) 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 Hyperglycemia Hypertension Musculoskeletal pain Surgical History (Updated 08/15/21 @ 06:29 by Marylou Mcguire MD) History of carpal tunnel release of both wrists 2009 History of cholecystectomy lap- 2008 History of hysterectomy History of tubal ligation 2008 Family History Mother Hypertension Father Hypertension CAD (coronary artery disease) Grandfather Lung disease Denies family history of Diabetes Dementia Cancer Stroke Social History Second hand smoke exposure: No Alcohol intake: never Desire information about alcohol rehabilitation?: No Lives independently: Yes Household members: spouse Marital status: Physical Exam Const: COMMON NORMALS: no acute distress, patient oriented x3, no limitations and alert GENERAL APPEARANCE: cooperative NUTRITIONAL APPEARANCE: obese ORIENTATION/CONSCIOUSNESS: Yes awake, Yes oriented to person, Yes oriented to place and Yes oriented to time Extremity: NARRATIVE EXTREMITY EXAM: patient has tenderness to L lower leg near ankle joint, throughout ankle joint, and heel of foot; pain seems to be out of proportion to exam findings; extremity is equal temp and color to R LE; DP/PT pulses normal; brisk cap refill; sensory intact; no obvious swelling noted; no signs of infection; no warmth/streaking GENERAL: Yes normal exam except as noted Neuro: COMMON NORMALS: patient oriented x3, moves all extremities, no focal motor deficits and no sensory deficits noted SENSORIUM/ORIENTATION: Yes alert, Yes oriented to person, Yes oriented to place and Yes oriented to time Skin: COMMON NORMALS: no rashes or lesions noted GENERAL SKIN EXAM: no rashes or lesions noted TRAUMA: no lacerations or abrasions Course Vital Signs: Vital signs: Vital Signs Temperature 98.5 F 08/29/21 09:23 Pulse Rate 75 08/29/21 09:23 Respiratory Rate 22 H 08/29/21 09:23 Blood Pressure 124/85 08/29/21 09:23 Pulse Oximetry 97 08/29/21 09:23 MDM - Extremity Injury (Lower) MDM Narrative: Medical decision making narrative: No evidence for infection or acute neurological/vascular pathology. XRs neg. Will SAMI wrap/crutches and can follow up with PCP this week for continued pain. Imaging Data^: XR L foot: Radiologist's impression: [facility] [address] [place] [address] XRay Report Signed Patient: Celia Farfan Unit #: [id number] : 1975 Age/Sex: 45 / F ADM Date: 08/29/21 Loc: ER Room/Bed: Attending Dr: Ordering Provider/Ordering MD: Елена Calabrese Date of Service: 08/29/21 Procedure(s): XR foot LT min 3V* 66411 Accession Number(s): [id number] Report Number: [id number] PROCEDURE INFORMATION: Exam: XR Left Foot Exam date and time: 08/29/2021 9:32 AM Age: 45 years old Clinical indication: Injury or trauma; Fall; Blunt trauma; Foot; Left; Additional info: Pain/possible injury TECHNIQUE: Imaging protocol: XR Left foot. Views: 3 or more views. COMPARISON: CR (LOW EXM, ) 08/29/2021 9:37:04 AM FINDINGS: Bones/joints: Bones intact and normally aligned. Soft tissues: Normal. XR/XR foot LT min 3V* [id number] IMPRESSION: No acute radiographic findings. Radiation Dose CTDIVOL = (mGy): DLP = (mGy-cm) Dictated By: Alvin Go MD Signed By: Alvin Go MD Signed Date/Time: 08/29/21 1036 DD/ 0932 XR L ankle: Radiologist's impression: [address] [address] XRay Report Signed Patient: Celia Farfan Unit #: [id number] : 1975 Age/Sex: 45 / F ADM Date: 08/29/21 Loc: ER Room/Bed: Attending Dr: Ordering Provider/Ordering MD: Елена Calabrese Date of Service: 08/29/21 Procedure(s): XR ankle LT min 3V* 04743 Accession Number(s): [id number] Report Number: [id number] PROCEDURE INFORMATION: Exam: XR Left Ankle Exam date and time: 08/29/2021 9:32 AM Age: 45 years old Clinical indication: Injury or trauma; Fall; Blunt trauma; Ankle; Left; Additional info: Pain/possible injury TECHNIQUE: Imaging protocol: XR Left ankle. Views: 3 or more views. COMPARISON: No relevant prior studies available. FINDINGS: Bones/joints: Bones intact and normally aligned. Soft tissues: Normal. XR/XR ankle LT min 3V* [id number] IMPRESSION: No acute radiographic findings. Radiation Dose CTDIVOL = (mGy): DLP = (mGy-cm) Dictated By: Alvin Go MD Signed By: Alvin Go MD Signed Date/Time: 08/29/21 1035 DD/ 0932 Discharge Plan Discharge Patient Disposition: Home Clinical Impression: Strain of ankle and foot Qualifiers: Encounter type: initial encounter Laterality: left Qualified Code(s): S96.912A - Strain of unspecified muscle and tendon at ankle and foot level, left foot, initial encounter Condition: Stable Prescriptions: No Action colchicine 0.6 mg tablet 1.2 mg PO DAILY RF: 0 omeprazole 20 mg tablet,delayed release (DR/EC) 20 mg PO DAILY RF: 0 albuterol sulfate 90 mcg/actuation HFA aerosol inhaler 2 puff inhalation Q6H PRN (Reason: Shortness Of Breath) RF: 0 bumetanide 0.5 mg tablet 0.5 mg PO DAILY RF: 0 hydrochlorothiazide 25 mg tablet 25 mg PO DAILY RF: 0 citalopram 20 mg tablet 20 mg PO DAILY RF: 0 tizanidine 2 mg capsule 2 mg PO BID PRN (Reason: Pain) RF: 0 gabapentin 100 mg capsule 200 mg PO BID RF: 0 Hold Instructions: resume after seeing PCP. Holding due to GERALDO. ondansetron HCl [Zofran] 4 mg tablet 4 mg PO Q6H PRN (Reason: nausea and vomiting) Qty: 14 RF: 0 chlorpheniramine maleate 4 mg Tablet 4 mg PO Q4H PRN (Reason: Allergy Symptoms) RF: 0 potassium citrate 15 mEq Tablet Extended Release 1,620 mg PO TID RF: 0 promethazine 25 mg tablet 25 mg PO Q6H PRN (Reason: nausea and vomiting) Qty: 20 RF: 0 amitriptyline 25 mg Tablet 25 mg PO BEDTIME RF: 0 fluticasone propionate 50 mcg/actuation spray,suspension 2 spray INTRANASAL DAILY PRN (Reason: Congestion) RF: 0 cefpodoxime 200 mg tablet 200 mg PO BID Qty: 8 RF: 0 Discharge Orders: Discharge ED (Routine); Ordered 08/29/21 Ordered By: Елена Calabrese Referrals: Stephenie Osorio [Primary Care Provider] - Coding Level of Care Code ED Kinesiology Internship for Chg Fwd Exam Expanded Problem Focused
== END 2021-08-29 10:32 | disposition home or self-care (01) ==
PROVIDERS: Emergency Provider Physician Assistant; PCP Registered Nurse
DX: S96.912A Strain of unspecified muscle and tendon at ankle and foot level, left foot, initial encounter (principal); I10 Essential (primary) hypertension; W06.XXXA Fall from bed, initial encounter
CPT/HCPCS: 73610; 73630; 99283; E0114

== ENCOUNTER → 2021-09-09 14:55 | Outpatient (BNVA) | payer OTHER, SELFPAY | PROVIDERS: PCP Registered Nurse; Visit Provider Nurse Practitioner Family | DX: N39.0 Urinary tract infection, site not specified (principal) | CPT/HCPCS: 81003; 87077; 87086; 87184 ==

== ENCOUNTER → 2021-09-24 15:21 | Outpatient (BNVA) | payer OTHER, SELFPAY | PROVIDERS: PCP Registered Nurse; Referring Provider Registered Nurse; Visit Provider Podiatrist Foot & Ankle Surgery | DX: S99.912A Unspecified injury of left ankle, initial encounter (principal); X58.XXXA Exposure to other specified factors, initial encounter | CPT/HCPCS: 73610 ==

== ENCOUNTER → 2021-10-25 10:25 | Outpatient (BNVA) | payer OTHER, SELFPAY | PROVIDERS: PCP Registered Nurse; Visit Provider Urology | DX: N39.0 Urinary tract infection, site not specified (principal); N39.41 Urge incontinence | CPT/HCPCS: 81003; 87077; 87086; 87184 ==

== ENCOUNTER 2022-02-01 02:35 | Emergency (ER) | payer MEDICAID, SELFPAY ==
[2022-02-01 02:36] VITALS: BP 165/87; PULSE 67; RESP 22; TEMP 36.1; O2SAT 95; BMI 43.2
--- NOTE | 2022-02-01 02:38 | W.ED.CHESTPA ---
HPI - Chest Pain General: Chief Complaint: Chest Pain Stated Complaint: CP Time Seen by Provider: 02/01/22 02:37 History of Present Illness: Ms. Farfan is a 46-year-old lady with history of hypertension obesity as well as CKD who presents emergency department due to chest pain. She reports more or less being at her baseline health earlier today perhaps mild chills and was sitting on a couch when she had sudden onset of left anterior chest pain. Initially described as sharp and radiating to the neck and arm he had subsequently has become more dull and pressure-like after nitroglycerin administered by emergency medical services. Intensity of symptoms at worst was moderate to severe. Course persisted. No other typical associated cardiac features. Denies similar episodes in past. No other specific exacerbating, provoking, or relieving factors identified. Patient did receive 2 sublingual nitroglycerin and 324 of aspirin prior to arrival. Pertinent past history: other Onset (ago): hour(s) Timing of current episode: still present Onset: during rest Severity: severe Review of Systems General: Reports: 10 or more systems reviewed and unremarkable except in HPI and below PFSH ED PFSH: Medical History Asthma Colon polyps Fibromyalgia GERD (gastroesophageal reflux disease) 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 Hyperglycemia Hypertension Musculoskeletal pain Recurrent UTI Surgical History History of carpal tunnel release of both wrists 2009 History of cholecystectomy lap- 2008 History of hysterectomy History of tubal ligation 2008 Family History Mother Hypertension Father Hypertension CAD (coronary artery disease) Grandfather Lung disease Denies family history of Diabetes Dementia Cancer Stroke Social History Second hand smoke exposure: No Alcohol intake: never Desire information about alcohol rehabilitation?: No Lives independently: Yes Household members: spouse Marital status: Physical Exam Const: COMMON NORMALS: alert GENERAL APPEARANCE: cooperative and well developed NUTRITIONAL APPEARANCE: obese HENMT: COMMON NORMALS: normocephalic and atraumatic HEAD & SCALP: normocephalic and atraumatic THROAT: posterior oropharynx normal Eye: COMMON NORMALS: conjunctivae normal CONJUNCTIVA: Yes conjunctivae normal SCLERA: sclerae normal Neck/C-Spine: COMMON NORMALS: supple GENERAL: Yes trachea midline Resp: EFFORT & INSPECTION: Yes able to speak in complete sentences and Yes tachypneic AUSCULTATION: diminished lung sounds Cardio: COMMON NORMALS: regular rate and regular rhythm RATE: regular rate RHYTHM: regular rhythm GI: COMMON NORMALS: Soft to palpation PALPATION: Yes Soft to palpation and No Tenderness to palpation present (GI) PERCUSSION: normal to percussion Extremity: GENERAL: Yes normal exam except as noted and No edema Neuro: COMMON NORMALS: moves all extremities SENSORIUM/ORIENTATION: Yes alert and No Orientation impaired Psych: COMMON NORMALS: mental status grossly normal and Normal thought process present THOUGHT PROCESS: Normal thought process present Course ED course: - Patient was seen and evaluated by me at bedside - Patient placed on cardiac monitors, IV access obtained - Initial evaluation notable for exam as above, somewhat uncomfortable appearing. -Analgesia and antiemetic ordered. GI cocktail ordered. - Labs notable for no acute hematologic abnormality. Metabolic panel notable for elevated creatinine. Transaminitis of unclear significance. Delta troponin is negative. - Imaging notable for no acute finding on chest x-ray - Upon serial reexamination after treatment the patient was similar - Based on patient history, evaluation, labs, and imaging as interpreted the most likely cause of the patient's condition is unspecified chest pain. The patient's heart score is moderate. - The results of ED evaluation were discussed with the patient including potential disposition options. I discussed heart score risk ratification. Given moderate heart score I offered the patient admission versus outpatient stress test, she is uncomfortable with discharge and therefore I plan for admission due to requirement for level of care not available if discharged to prevent significant worsening/deterioration. - Hospitalist service contacted and agreed that patient. - Subsequent to completion of my shift the patient left AGAINST MEDICAL ADVICE prior to admission to the hospital or evaluation by hospitalist service. I was not available to discuss with the patient. Note: Click bubbles or prepopulated hidalgo in note writing are used for assistance with data collection and billing and are inherently more limited than narrative and other text portions of this note. Please use narrative for additional clinical history and defer to narrative/free test for any case of contradictory information. If information appears in only free text or click bubble it should be considered present or absent as reported. Please contact note screen writer for clarifications of clinical information or contradictory information. MDM is a brief summary, contradictory or erroneous seeming information should be clarified and full note should be reviewed. Vital Signs: Vital signs: Vital Signs Temperature 97 F L 02/01/22 02:36 Pulse Rate 51 L 02/01/22 07:25 Respiratory Rate 17 02/01/22 07:25 Blood Pressure 168/90 02/01/22 07:25 Pulse Oximetry 98 02/01/22 07:25 MDM - Chest Pain Medical Decision Making 46-year-old lady presenting with chest pain. Moderate risk by heart score. Patient uncomfortable with discharge and therefore I contacted hospitalist service for admission however patient subsequently left AGAINST MEDICAL ADVICE prior to further cardiac evaluation. Medical Records I reviewed the patient's medical records. Lab Data I reviewed the patient's lab results. : 02/01/22 02:45 02/01/22 02:45 Radiology Impressions Chest X-Ray 02/01/22 02:48 IMPRESSION: No acute findings. Laboratory Results WBC 7.6 10^3/uL (4.0-10.0) 02/01/22 02:45 RBC 4.31 10^6/uL (4.1-5.3) 02/01/22 02:45 Hgb 12.4 g/dL (11.5-15.3) 02/01/22 02:45 Hct 39.2 % (37.0-47.0) 02/01/22 02:45 MCV 91.0 fl (81-99) 02/01/22 02:45 MCH 28.8 pg (28.0-34.0) 02/01/22 02:45 MCHC 31.6 g/dL (30.0-36.0) 02/01/22 02:45 RDW 12.8 % (12.1-15.1) 02/01/22 02:45 Plt Count 224 10^3/cmm (130-400) 02/01/22 02:45 MPV 10.0 fL (7.4-10.4) 02/01/22 02:45 Neut % (Auto) 32.0 % 02/01/22 02:45 Lymph % (Auto) 56.2 % 02/01/22 02:45 [place] % (Auto) 6.6 % 02/01/22 02:45 Eos % (Auto) 4.2 % 02/01/22 02:45 Baso % (Auto) 0.7 % 02/01/22 02:45 Neut # (Auto) 2.42 10^3/uL (1.8-7.7) 02/01/22 02:45 Lymph # (Auto) 4.3 10^3/uL (0.8-4.8) 02/01/22 02:45 [place] # (Auto) 0.5 10^3/uL (0.2-0.9) 02/01/22 02:45 Eos # (Auto) 0.3 10^3/uL (0.0-0.8) 02/01/22 02:45 Baso # (Auto) 0.1 10^3/uL (0.0-0.1) 02/01/22 02:45 Nucleated RBC % (auto) 0 % 02/01/22 02:45 Nucleated RBCs # 0.0 /100WBC 02/01/22 02:45 D-Dimer 0.51 ug/mIFEU (0-0.59) 02/01/22 02:47 Sodium 142 mmol/L (136-145) 02/01/22 02:45 Potassium 3.8 mmol/L (3.5-5.1) 02/01/22 02:45 Chloride 107 mmol/L (98-107) 02/01/22 02:45 Carbon Dioxide 24 mmol/L (22-29) 02/01/22 02:45 Anion Gap 14.8 (5-19) 02/01/22 02:45 BUN 11 mg/dL (6-20) 02/01/22 02:45 Creatinine 1.4 mg/dL (0.5-0.9) H 02/01/22 02:45 GFR Calculation 40.3 mL/min (90-130) L 02/01/22 02:45 Glucose 89 mg/dL (65-115) 02/01/22 02:45 Calculated Osmolality 293 mOsm/kg (285-295) 02/01/22 02:45 Calcium 8.4 mg/dL (8.5-10.5) L 02/01/22 02:45 Total Bilirubin 0.3 mg/dL (0.15-1.2) 02/01/22 02:45 AST 35 U/L (0-32) H 02/01/22 02:45 ALT 51 U/L (0-33) H 02/01/22 02:45 Alkaline Phosphatase 76 IU/L (35-105) 02/01/22 02:45 Troponin T Baseline 6 ng/L (0-10) 02/01/22 02:45 Troponin T 120 Minute 6.69 ng/L (0-10) 02/01/22 04:29 Delta Troponin T 0.69 ABS# (0-10) 02/01/22 04:29 NT-Pro-B Natriuret Pep 386 pg/mL (0-125) H 02/01/22 02:45 Total Protein 6.6 g/dL (6.6-8.7) 02/01/22 02:45 Albumin 4.1 g/dL (3.5-5.2) 02/01/22 02:45 Globulin 2.5 g/dL (1.3-4.6) 02/01/22 02:45 Lipase 20 U/L (13-60) 02/01/22 02:45 EKG Data EKG 1: I personally reviewed and interpreted this EKG as follows: EKG interpretation date: 02/01/22 EKG interpretation time: 02:46 Interpretation: Twelve-lead EKG shows a regular rhythm at a rate of 51. NV interval 123, QRS duration 89, QTc 412. Normal axis. Interpretation: Sinus rhythm with nonspecific ST segment abnormalities. EKG 2: I personally reviewed and interpreted this EKG as follows: EKG interpretation date: 02/01/22 EKG interpretation time: 04:33 Interpretation: Twelve-lead EKG shows a regular rhythm at a rate of 136. NV interval 134, QRS duration 72, QTc 404. Normal axis. Interpretation: Sinus tachycardia. Nonspecific ST segment abnormalities. Note: EKG obtained as patient was in the middle of having multiple episodes of emesis and therefore rate is likely secondary to this compared to baseline. EKG 3: I personally reviewed and interpreted this EKG as follows: EKG interpretation date: 02/01/22 EKG interpretation time: 05:15 Interpretation: Twelve-lead EKG shows a regular rhythm at a rate of 54. NV interval 131, QRS duration 90, QTc 437. Normal axis. Interpretation: Sinus rhythm. Nonspecific ST segment abnormalities. Discharge Plan Discharge Patient Disposition: Left Against Medical Advice Clinical Impression: Chest pain Condition: Stable Prescriptions: No Action omeprazole 20 mg tablet,delayed release (DR/EC) 20 mg PO DAILY 0RF albuterol sulfate 90 mcg/actuation HFA aerosol inhaler 2 puff inhalation Q6H PRN (Reason: Shortness Of Breath) 0RF hydrochlorothiazide 25 mg tablet 25 mg PO DAILY 0RF citalopram 20 mg tablet 20 mg PO BEDTIME 0RF duloxetine 30 mg capsule,delayed release(DR/EC) 30 mg PO DAILY PRN (Reason: unknown) 0RF hydrocodone-acetaminophen 10-325 mg tablet 1 tab PO DAILY PRN (Reason: Pain) 0RF (DME) AFO SPECTRUM See Rx Instructions .Route .MEDSUPPLY Qty: 1 0RF Rx Instructions: As directed Patient has a history of unstable ankles Tylenol Ex Str Rapid Release 500 mg Tablet 1,000 mg PO Q6H PRN (Reason: Pain) 0RF ondansetron 4 mg tablet,disintegrating 4 mg PO Q8H PRN (Reason: Nausea And Vomiting) 0RF duloxetine 60 mg capsule,delayed release(DR/EC) 60 mg PO DAILY PRN (Reason: unknown) 0RF potassium citrate 15 mEq tablet extended release 15 meq PO .UP TO TWICE A DAY PRN (Reason: unknown) 0RF fluticasone propionate 50 mcg/actuation spray,suspension 2 spray INTRANASAL DAILY PRN (Reason: Allergy Symptoms) 0RF Referrals: Stephenie Osorio [Primary Care Provider] - Coding Level of Care Code ED Crane Service Technician for Nette Coppola
--- NOTE | 2022-02-01 02:48 | ECG_ITS ---
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 Measurements Intervals [place] Rate: 51 P: 48 DC: 123 QRS: 55 QRSD: 89 T: 77 QT: 435 QTc: 403 Interpretive Statements SINUS BRADYCARDIA NONSPECIFIC ST & T-WAVE ABNORMALITY No previous ECG available for comparison Electronically Signed On 02-02-2022 18:50:03 CDT by Dario Shafer M.D. [email or web address] hospitalGraftyscincinnati [facility] hospital.[employer]/store/NU/[id number] f
--- NOTE | 2022-02-01 02:48 | XRR_ITS ---
PROCEDURE INFORMATION: Exam: XR Chest Exam date and time: 02/01/2022 2:48 AM Age: 46 years old Clinical indication: Chest wall pain; Additional info: Chest pain TECHNIQUE: Imaging protocol: XR of the chest. Views: 1 view. COMPARISON: CR Chest 2 views* [id number] 08/31/2019 10:06 PM FINDINGS: Lungs: Unremarkable. No consolidation. Pleural spaces: Unremarkable. No pleural effusion. No pneumothorax. Heart/Mediastinum: Unremarkable. No cardiomegaly. Bones/joints: Unremarkable. XR/XR chest 1V portable [id number] IMPRESSION: No acute findings.
[2022-02-01 02:57] LABS: Basophils # 0.1 10^3/uL (0.0-0.1); Basophils % 0.7 %; Eosinophils # 0.3 10^3/uL (0.0-0.8); Eosinophils % 4.2 %; Hematocrit 39.2 % (37.0-47.0); Hemoglobin 12.4 g/dL (11.5-15.3); Lymphocytes # 4.3 10^3/uL (0.8-4.8); Lymphocytes % 56.2 %; Mean Corpuscular HGB Conc 31.6 g/dL (30.0-36.0); Mean Corpuscular Hemoglobin 28.8 pg (28.0-34.0); Monocytes # 0.5 10^3/uL (0.2-0.9); Monocytes % 6.6 %; Neutrophils # 2.42 10^3/uL (1.8-7.7); Nucleated Red Blood Cells % 0 %; Platelet Count 224 10^3/cmm (130-400); Red Blood Count 4.31 10^6/uL (4.1-5.3); Red Cell Distribution Width 12.8 % (12.1-15.1); White Blood Count 7.6 10^3/uL (4.0-10.0)
[2022-02-01 03:20] LABS: Troponin(5th) Baseline 6 ng/L (0-10)
[2022-02-01 03:29] LABS: Alanine Aminotransferase 51 U/L (0-33); Albumin Level 4.1 g/dL (3.5-5.2); Alkaline Phosphatase 76 IU/L (35-105); Anion Gap 14.8 (5-19); Aspartate Amino Transferase 35 U/L (0-32); Blood Urea Nitrogen 11 mg/dL (6-20); Calcium 8.4 mg/dL (8.5-10.5); Carbon Dioxide 24 mmol/L (22-29); Chloride 107 mmol/L (98-107); Globulin 2.5 g/dL (1.3-4.6); Glomerular Filtration Rate 40.3 mL/min (90-130); Glucose 89 mg/dL (65-115); Lipase 20 U/L (13-60); NT Pro B Type Natriuretic Pept 386 pg/mL (0-125); Osmolality Calculated 293 mOsm/kg (285-295); Potassium 3.8 mmol/L (3.5-5.1); Sodium 142 mmol/L (136-145); Total Bilirubin 0.3 mg/dL (0.15-1.2); Total Protein 6.6 g/dL (6.6-8.7)
[2022-02-01 04:10] VITALS: BP 170/92; PULSE 54; RESP 20; O2SAT 100
[2022-02-01 04:41] VITALS: RESP 17
[2022-02-01] MEDS: fentaNYL 50 mcg/mL INJ 2mL IVP (04:41)
[2022-02-01] MEDS: ondansetron 2 mg/ML SDV 2 mL 4 MG IVP (04:41)
--- NOTE | 2022-02-01 04:48 | ECG_ITS ---
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 Measurements Intervals [place] Rate: 136 P: 62 [place]: 134 QRS: 33 QRSD: 72 T: 26 QT: 324 QTc: 489 Interpretive Statements SINUS TACHYCARDIA SEPTAL MYOCARDIAL INFARCTION , PROBABLY OLD [40+ ms Q WAVE IN V1/V2] Compared to ECG 02/01/2022 02:42:11 Myocardial infarct finding now present Sinus bradycardia no longer present T-wave abnormality no longer present Electronically Signed On 02-02-2022 20:26:38 CDT by Dario Shafer M.D. [email or web address] [email or web address].[employer]/store/OM/[id number]
[2022-02-01 04:53] LABS: Troponin 5 2HR 6.69 ng/L (0-10)
[2022-02-01 05:10] LABS: D Dimer 0.51 ug/mIFEU (0-0.59)
[2022-02-01 05:13] LABS: Troponin 5 2HR Delta 0.69 ABS# (0-10)
[2022-02-01] MEDS: lidocaine 2% viscous 15 ML, aluminum-mag hydrox-simethicon 30 ML, sucralfate oral liq 1 GM PO (05:42)
[2022-02-01 06:02] VITALS: BP 170/92; PULSE 52; RESP 20; O2SAT 100
[2022-02-01 07:21] VITALS: BP 142/108; PULSE 52; RESP 17; O2SAT 97
[2022-02-01 07:25] VITALS: BP 168/90; PULSE 51; RESP 17; O2SAT 98
--- NOTE | 2022-02-01 08:05 | PC.PHAR ---
pt and pts daughter verified the pts medications-states the pt lost her insurance so states the pt hasnt been taking all her meds like she should- notes are made in the pharmacy comments-
--- NOTE | 2022-02-01 08:48 | ECG_ITS ---
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 Measurements Intervals [place] Rate: 54 P: 31 [place]: 131 QRS: 22 QRSD: 90 T: 71 QT: 450 QTc: 430 Interpretive Statements SINUS BRADYCARDIA NONSPECIFIC T-WAVE ABNORMALITY Compared to ECG 02/01/2022 04:32:48 T-wave abnormality now present Sinus tachycardia no longer present Myocardial infarct finding no longer present Electronically Signed On 02-02-2022 20:26:34 CDT by Dario Shafer M.D. [email or web address] Groupcullman regional medical centerVacunekmercy health st[facility].[employer]/store/NU/[id number] f
== END 2022-02-01 08:41 | disposition left against medical advice (07) ==
PROVIDERS: Emergency Provider Emergency Medicine; PCP Registered Nurse
DX: R07.9 Chest pain, unspecified (principal); Z53.29 Procedure and treatment not carried out because of patient's decision for other reasons; I12.9 Hypertensive chronic kidney disease with stage 1 through stage 4 chronic kidney disease, or unspecified chronic kidney disease; N18.9 Chronic kidney disease, unspecified; E66.9 Obesity, unspecified; Z68.41 Body mass index [BMI] 40.0-44.9, adult
CPT/HCPCS: 71045; 80053; 83690; 83880; 84484; 85025; 85378; 93005; 96374; 96375; 99284; J2405; J3010

== ENCOUNTER → 2022-03-23 08:12 | Outpatient (BNVA) | payer MEDICAID, SELFPAY | PROVIDERS: PCP Registered Nurse; Visit Provider Podiatrist Foot & Ankle Surgery | DX: M25.372 Other instability, left ankle (principal); M25.371 Other instability, right ankle | CPT/HCPCS: 99213; 99214 ==

== ENCOUNTER → 2022-04-19 10:20 | Outpatient (BNVA) | payer MEDICAID, SELFPAY | PROVIDERS: PCP Registered Nurse; Visit Provider Urology | DX: N39.46 Mixed incontinence (principal); N39.0 Urinary tract infection, site not specified | CPT/HCPCS: 81003; 87077; 87086; 87186; 99213 ==

== ENCOUNTER → 2022-07-21 14:54 | Outpatient (BNVA) | payer MEDICAID, SELFPAY | PROVIDERS: PCP Registered Nurse; Visit Provider Nurse Practitioner Family | DX: N39.0 Urinary tract infection, site not specified (principal) | CPT/HCPCS: 81003 ==

== ENCOUNTER 2022-08-06 12:05 | Emergency (ER) | payer MEDICAID, SELFPAY ==
[2022-08-06 12:10] VITALS: PULSE 94; RESP 14; TEMP 37.1; O2SAT 94; BMI 23.0
[2022-08-06 12:14] VITALS: BP 129/79
--- NOTE | 2022-08-06 12:48 | CTR_ITS ---
PROCEDURE INFORMATION: Exam: CT Head Without Contrast Exam date and time: 08/06/2022 1:10 PM Age: 46 years old Clinical indication: Pain; Headache not specified; Additional info: FANG TECHNIQUE: Imaging protocol: Computed tomography of the head without contrast. Axial, coronal and sagittal reformatted images were created and reviewed. Radiation optimization: All CT scans at this facility use at least one of these dose optimization techniques: automated exposure control; mA and/or kV adjustment per patient size (includes targeted exams where dose is matched to clinical indication); or iterative reconstruction. COMPARISON: CT head wo con* [id number] 07/20/2021 5:00 PM RADIATION DOSE METRICS: Total DLP (mGy-cm): 997.28 FINDINGS: Brain: No CT evidence of acute intracranial hemorrhage or acute territorial infarction. No significant mass effect or midline shift. Basal cisterns patent. Cerebral ventricles: Normal in size and configuration. Paranasal sinuses: Unremarkable. No fluid levels. Mastoid air cells: Grossly unremarkable. Bones/joints: No acute osseous abnormality. Soft tissues: Grossly unremarkable. CT/CT head wo con* [id number] IMPRESSION: No CT evidence of acute intracranial pathology.
--- NOTE | 2022-08-06 12:51 | ED_ITS ---
HPI - Headache General: Chief Complaint: Headache Stated Complaint: Head pain for a week Time Seen by Provider: 08/06/22 12:44 Source: patient Mode of arrival: ambulatory Limitations: no limitations History of Present Illness: 46-year-old female who has a history of cluster migraine states she has had a left-sided headache over the last 5 days she states this is typical for her cluster migraines they do not last as long she does have photophobia phonophobia she rates her pain a 7 out of 10 she denies any vomiting has had some nausea denies any fevers. Associated symptoms: Deny chest pain, fever(s), nausea, rash or vomiting Review of Systems Const: Denies: fever(s), chills, body aches or change in appetite Eyes: Denies: blurry vision or eye discomfort ENMT: Denies: throat pain or dental pain Card: Denies: chest pain Resp: Denies: dyspnea GI: Denies: abdominal pain, nausea, vomiting or diarrhea : Denies: dysuria Musc: Denies: neck pain or back pain Skin/Breast: Denies: rash Neuro: Reports: headache(s) Psych: Denies: depression Les/Lymph: Denies: easy bruising All/Imm: Denies: urticaria PFSH ED PFSH: Medical History Asthma Colon polyps Fibromyalgia GERD (gastroesophageal reflux disease) 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 Hyperglycemia Hypertension Mixed incontinence urge and stress Mixed stress and urge urinary incontinence Musculoskeletal pain Psychiatric care Recurrent UTI Surgical History History of carpal tunnel release of both wrists 2009 History of cholecystectomy lap- 2008 History of hysterectomy History of tubal ligation 2009 Family History Mother Hypertension Father Hypertension CAD (coronary artery disease) Grandfather Lung disease Denies family history of Diabetes Dementia Cancer Stroke Social History Smoking and tobacco status: never smoked Second hand smoke exposure: No Alcohol intake: never Desire information about alcohol rehabilitation?: No Lives independently: Yes Household members: spouse Marital status: Current occupational status: unemployed History of recent travel: No Physical Exam Const: COMMON NORMALS: no acute distress, patient oriented x3 and healthy appearing HENMT: COMMON NORMALS: normocephalic and atraumatic HEAD & SCALP: normocephalic and atraumatic Eye: COMMON NORMALS: Equal, round and reactive pupils present and EOMs intact bilaterally PUPIL: Yes Equal, round and reactive pupils present Neck/C-Spine: COMMON NORMALS: full ROM and supple Chest: COMMONS NORMALS: normal inspection of the chest and normal palpation of entire chest wall Resp: COMMON NORMALS: normal respiratory effort, No retractions, No use of accessory muscles and clear to auscultation bilaterally AUSCULTATION: clear to auscultation bilaterally Cardio: COMMON NORMALS: regular rate, regular rhythm and No murmurs present (Cardio) RATE: regular rate RHYTHM: regular rhythm GI: COMMON NORMALS: Normal to inspection, nondistended, normoactive bowel sounds present, Soft to palpation, non-tender and no masses PALPATION: Yes Soft to palpation Extremity: COMMON NORMALS: normal to inspection and full ROM Neuro: COMMON NORMALS: patient oriented x3, moves all extremities and no focal motor deficits Psych: COMMON NORMALS: mental status grossly normal, Normal thought process present and cooperative THOUGHT PROCESS: Normal thought process present Skin: COMMON NORMALS: no rashes or lesions noted and no wounds GENERAL SKIN EXAM: no rashes or lesions noted Course Vital Signs: Vital signs: Vital Signs Temperature 98.7 F 08/06/22 12:10 Pulse Rate 83 08/06/22 12:54 Respiratory Rate 19 H 08/06/22 12:54 Blood Pressure 135/117 08/06/22 12:54 Pulse Oximetry 96 08/06/22 12:54 Oxygen Delivery Me thod 08/06/22 12:10 MDM - Headache Medical Decision Making Patient presents here with headache likely migraine headache head CT here is normal she feels much improved after meds she is stable for discharge she is to follow-up with PCP and return if worsening she understands agrees to plan. Lab Data Radiology Impressions Head CT 08/06/22 12:48 IMPRESSION: No CT evidence of acute intracranial pathology. Discharge Plan Discharge Patient Disposition: Home Clinical Impression: Headache Condition: Stable Prescriptions: No Action albuterol sulfate 90 mcg/actuation HFA aerosol inhaler 2 puff inhalation Q6H PRN (Reason: Shortness Of Breath) ondansetron 8 mg tablet,disintegrating 8 mg PO Q8H loratadine [Allergy Relief (loratadine)] 10 mg tablet 10 mg PO DAILY ascorbic acid (vitamin C) 1,000 mg tablet 500 mg PO DAILY chlorthalidone 25 mg tablet 25 mg PO DAILY potassium citrate 10 mEq (1,080 mg) tablet extended release 10 meq PO TID propranolol 10 mg tablet 10 mg PO BID peg 3350-electrolytes [Golytely] 236-22.74-6.74 -5.86 gram recon soln 240 ml PO Q10M Qty: 4000 0RF Rx Instructions: until fecal effluent is clear hydrocodone-acetaminophen 10-325 mg tablet 1 tab PO DAILY PRN (Reason: Pain) (DME) AFO SPECTRUM See Rx Instructions .Route .MEDSUPPLY Qty: 1 0RF Rx Instructions: As directed Patient has a history of unstable ankles tizanidine 4 mg capsule 4 mg PO ONCE (DME) Spectrum AFO to the right with Shoes- New Balance See Rx Instructions .Route .MEDSUPPLY Qty: 1 0RF Rx Instructions: As directed by Vasyl P [facility] amitriptyline 50 mg tablet 50 mg PO DAILY omeprazole 20 mg capsule,delayed release(DR/EC) 20 mg PO DAILY aspirin [Adult Aspirin Regimen] 81 mg tablet,delayed release (DR/EC) 81 mg PO DAILY methenamine hippurate 1 gram tablet 1 g PO BID Qty: 60 12RF Rx Instructions: Take 1000 mg of vitamin C with each dose of methenamine solifenacin [Vesicare] 5 mg tablet 5 mg PO DAILY Qty: 30 12RF duloxetine 60 mg capsule,delayed release(DR/EC) 120 mg PO DAILY Discharge Orders: Discharge ED (Routine); Ordered 08/06/22 Ordered By: Rickey Daniel Referrals: Stephenie Osorio [Primary Care Provider] - Discharge Diet: Advance as tolerated Discharge Activity: Resume usual activity Patient Instructions: Acute Headache (ED) Coding Level of Care Code ED Reliability Technician for Chg Fwd Exam Comprehensive
[2022-08-06 12:54] VITALS: BP 135/117; PULSE 83; RESP 19; O2SAT 96
[2022-08-06 13:00] VITALS: BP 123/83; PULSE 69; RESP 14
[2022-08-06] MEDS: ketorolac 30 mg/mL INJ 15 MG IVP (13:01)
[2022-08-06] MEDS: metoclopramide 5 mg/mL SDV 2 mL 10 MG IVP (13:02)
[2022-08-06] MEDS: diphenhydrAMINE 50 mg/mL SDV 1mL IVP (13:02)
[2022-08-06 13:30] VITALS: BP 129/76; PULSE 75; RESP 17; O2SAT 95
[2022-08-06 14:00] VITALS: PULSE 75; RESP 15
== END 2022-08-06 14:02 | disposition home or self-care (01) ==
PROVIDERS: Emergency Provider Emergency Medicine; PCP Registered Nurse
DX: R51.9 Headache, unspecified (principal)
CPT/HCPCS: 70450; 96374; 96375; 99285; J1200; J1885; J2765

== ENCOUNTER 2022-09-02 08:22 | Day surgery (SDC) | payer MEDICAID, SELFPAY ==
[2022-08-30 12:04] VITALS: BMI 44.4
[2022-09-02 08:37] VITALS: BP 147/103; PULSE 104; RESP 20; TEMP 36.6; O2SAT 96
[2022-09-02] MEDS: sodium chloride 0.9% 1,000 ML 30 ML IV (08:47)
--- NOTE | 2022-09-02 09:30 | ANES.PREANE2 ---
Pre-Anesthetic Assessment Height/Weight: Height 1.5 m Weight 99.79 kg Temp Pulse Resp BP Pulse Ox O2 Del Method 97.9 F 104 H 20 H 147/103 96 09/02/22 08:37 09/02/22 08:37 09/02/22 08:37 09/02/22 08:37 09/02/22 08:37 09/02/22 08:37 Preop Diagnosis: History of colon polyp Operation Date: 09/02/22 09:45 Proposed Procedures p Colonoscopy 52161,Z86.010(Not Applicable) - Bronson Nolen MD Familial anesthetic complications: None Was Beta Harpreet taken within 24 hours: N/A Was Clonidine taken within 24 hours: N/A Last intake: Intake Last Liquid Date 09/01/22 Last Liquid Time 19:00 Last Solid Date 08/31/22 Last Solid Time 20:00 Social No alcohol and No tobacco Exam alert, oriented x 3, clear to auscultation bilaterally and regular rate & rhythm Airway Mallampati: Class II Dentition: false Pulmonary Asthma CV/HEM Hypertension Chronic Renal Insufficiency GI Gastroesophageal Reflux Disease Anesthetic Plan ASA status: 3 Anesthesia: MAC Risk of > 500 ml blood loss (7ml/kg in children): No Medications/Allergies Home Medications Medication Instructions Recorded Confirmed Last Taken Type albuterol sulfate 90 mcg/actuation 2 puff inhalation Q6H PRN 02/15/21 08/30/22 09/01/22 History aerosol inhaler Shortness Of Breath hydrocodone 10 mg-acetaminophen 1 tab PO DAILY PRN Pain 09/09/21 08/30/22 09/01/22 History 325 mg tablet AFO SPECTRUM #1 ea 09/24/21 07/23/22 09/01/22 Rx Spectrum AFO to the right with #1 ea 03/23/22 07/23/22 09/01/22 Rx Shoes- [employer] tizanidine 4 mg capsule 4 mg PO ONCE 03/23/22 08/30/22 09/01/22 History amitriptyline 50 mg tablet 50 mg PO DAILY 04/19/22 08/30/22 09/01/22 History aspirin 81 mg tablet,delayed 81 mg PO DAILY 04/19/22 08/30/22 09/01/22 History release (Adult Aspirin Regimen) duloxetine 60 mg capsule,delayed 120 mg PO DAILY unknown 04/19/22 08/30/22 09/01/22 History release methenamine hippurate 1 gram tablet 1 g PO BID #60 tabs 04/19/22 08/30/22 09/01/22 Rx omeprazole 20 mg capsule,delayed 20 mg PO DAILY 04/19/22 08/30/22 09/01/22 History release ascorbic acid (vitamin C) 1,000 mg 500 mg PO DAILY 07/21/22 08/30/22 09/01/22 History tablet chlorthalidone 25 mg tablet 25 mg PO DAILY 07/21/22 08/30/22 09/01/22 History loratadine 10 mg tablet (Allergy 10 mg PO DAILY 07/21/22 08/30/22 09/01/22 History Relief (loratadine)) ondansetron 8 mg disintegrating 8 mg PO Q8H 07/21/22 08/30/22 09/01/22 History tablet potassium citrate 10 mEq (1,080 10 meq PO TID 07/21/22 08/30/22 09/01/22 History mg) tablet,extended release propranolol 10 mg tablet 10 mg PO BID 07/21/22 08/30/22 09/01/22 History solifenacin 5 mg tablet (Vesicare) 5 mg PO DAILY #30 tabs 07/21/22 08/30/22 09/01/22 Rx Allergies Allergy/AdvReac Type Severity Reaction Status Date / Time latex Allergy Unknown Verified 08/30/22 12:01 lisinopril Allergy ADR/ALGY-Pa Verified 08/30/22 12:01 lpitations sulfamethoxazole Allergy ALGY-Rash Verified 08/30/22 12:01 [From Bactrim] trimethoprim [From Bactrim] Allergy ALGY-Rash Verified 08/30/22 12:01 Current Medications Generic Name Dose Route Start Last Admin Trade Name Freq PRN Reason Stop Dose Admin Sodium Chloride 1,000 mls @ 30 mls/hr 09/02/22 08:30 09/02/22 08:47 Sodium Chloride 0.9% IV 09/03/22 08:29 30 mls/hr .Q24H ASHLEY Administration PFSH Anesthesia Medical History Asthma Colon polyps Fibromyalgia GERD (gastroesophageal reflux disease) 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 Hyperglycemia Hypertension Mixed incontinence urge and stress Mixed stress and urge urinary incontinence Musculoskeletal pain Psychiatric care Recurrent UTI Surgical History History of carpal tunnel release of both wrists 2009 History of cholecystectomy lap- 2009 History of hysterectomy History of tubal ligation 2008 Family History Mother Hypertension Father Hypertension CAD (coronary artery disease) Grandfather Lung disease Denies family history of Diabetes Dementia Cancer Stroke Social History Smoking and tobacco status: never smoked Second hand smoke exposure: No Alcohol intake: never Desire information about alcohol rehabilitation?: No Lives independently: Yes Household members: spouse Marital status: Current occupational status: unemployed History of recent travel: No Data Anesthesia Cardiac Studies: No Data to Display
--- NOTE | 2022-09-02 09:40 | W.PM.OPSFHP ---
Same Day Surgery H&P Indication for Procedure/HPI DATE OF PROCEDURE: September 02, 2022 CHIEF COMPLAINT/INDICATIONFOR SURGICAL PROCEDURE: Colon polyp PREOP DIAGNOSIS: History of colon polyp PLANNED PROCEDURE: Operation Date: 09/02/22 09:45 Proposed Procedures p Colonoscopy 21057,Z86.010(Not Applicable) - Bronson Nolen MD This is a pleasant 56 years old female patient comes today for surveillance colonoscopy. Previously removed tubulovillous adenoma. ROS All systems have been reviewed negative except as for the above or per problem list. Medications/Allergies* Home Medications Medication Instructions Recorded Confirmed Type albuterol sulfate 90 mcg/actuation 2 puff inhalation Q6H PRN 02/15/21 08/30/22 History aerosol inhaler Shortness Of Breath hydrocodone 10 mg-acetaminophen 1 tab PO DAILY PRN Pain 09/09/21 08/30/22 History 325 mg tablet tizanidine 4 mg capsule 4 mg PO ONCE 03/23/22 08/30/22 History amitriptyline 50 mg tablet 50 mg PO DAILY 04/19/22 08/30/22 History aspirin 81 mg tablet,delayed 81 mg PO DAILY 04/19/22 08/30/22 History release (Adult Aspirin Regimen) duloxetine 60 mg capsule,delayed 120 mg PO DAILY unknown 04/19/22 08/30/22 History release omeprazole 20 mg capsule,delayed 20 mg PO DAILY 04/19/22 08/30/22 History release ascorbic acid (vitamin C) 1,000 mg 500 mg PO DAILY 07/21/22 08/30/22 History tablet chlorthalidone 25 mg tablet 25 mg PO DAILY 07/21/22 08/30/22 History loratadine 10 mg tablet (Allergy 10 mg PO DAILY 07/21/22 08/30/22 History Relief (loratadine)) ondansetron 8 mg disintegrating 8 mg PO Q8H 07/21/22 08/30/22 History tablet potassium citrate 10 mEq (1,080 10 meq PO TID 07/21/22 08/30/22 History mg) tablet,extended release propranolol 10 mg tablet 10 mg PO BID 07/21/22 08/30/22 History Allergies/Adverse Reactions Allergy/AdvReac Type Severity Reaction Status Date / Time latex Allergy Unknown Verified 09/02/22 09:41 lisinopril Allergy ADR/ALGY-Pa Verified 09/02/22 09:41 lpitations sulfamethoxazole Allergy ALGY-Rash Verified 09/02/22 09:41 [From Bactrim] trimethoprim [From Bactrim] Allergy ALGY-Rash Verified 09/02/22 09:41 Current Medications: Generic Name Dose Route Start Last Admin Trade Name Juan Jose PRN Reason Stop Dose Admin Sodium Chloride 1,000 mls @ 30 mls/hr 09/02/22 08:30 09/02/22 08:47 Sodium Chloride 0.9% IV 09/03/22 08:29 30 mls/hr .Q24H ASHLEY Administration Pertinent History/Comorbid Conditions* Medical History (Updated 08/14/22 @ 00:01 by ) Asthma Colon polyps Fibromyalgia GERD (gastroesophageal reflux disease) 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 Hyperglycemia Hypertension Mixed incontinence urge and stress Mixed stress and urge urinary incontinence Musculoskeletal pain Psychiatric care Recurrent UTI Surgical History (Updated 08/15/21 @ 06:29 by Mraylou Mcguire MD) History of carpal tunnel release of both wrists 2009 History of cholecystectomy lap- 2008 History of hysterectomy History of tubal ligation 2008 Family History (Updated 05/06/21 @ 14:00 by Tressa Berkowitz) CAD (coronary artery disease) Father Lung disease Grandfather Hypertension Mother Father Denies family history of Diabetes Dementia Cancer Stroke Social History Smoking and tobacco status: never smoked Second hand smoke exposure: No Alcohol intake: never Desire information about alcohol rehabilitation?: No Lives independently: Yes Household members: spouse Marital status: Current occupational status: unemployed History of recent travel: No Pertinent Exam Findings alert, oriented x 3, regular rate & rhythm and procedure specific exam findings (Abdominal exam nontender nondistended soft) Recommendations Surgery/Procedure today (Surveillance colonoscopy with possible biopsy) Coding Level of Care Code Acute [employer]
[2022-09-02 11:12] VITALS: BP 106/78; PULSE 96; RESP 20; TEMP 36.1; O2SAT 94
[2022-09-02 11:25] VITALS: BP 142/91; PULSE 97; RESP 18; O2SAT 96
--- NOTE | 2022-09-02 13:31 | ANE.PACU2 ---
Inpatient post-anesthesia follow up: Airway intact: Yes Vital signs: Temperature 97 F Pulse Rate 97 Respiratory Rate 18 Blood Pressure 142/91 Pulse Oximetry 96 Oxygen Delivery Me thod Room Air Oxygen Flow Rate Fraction of Inspir ed Oxygen Hydration adequate: Yes Nausea and vomiting: No Pain level: 1 Mental status: Baseline
== END 2022-09-02 11:40 | disposition home or self-care (01) ==
PROVIDERS: PCP Family Medicine; Visit Provider Surgery
PROC: 0DJD8ZZ Inspection of Lower Intestinal Tract, Via Natural or Artificial Opening Endoscopic (ICD-10-PCS; CPT 45378; principal; 2022-09-02 09:45)
DX: Z12.11 Encounter for screening for malignant neoplasm of colon (principal); Z86.010 Personal history of colon polyps; M79.7 Fibromyalgia; K21.9 Gastro-esophageal reflux disease without esophagitis; I10 Essential (primary) hypertension
CPT/HCPCS: 45378; J2704; J7030

== ENCOUNTER 2022-09-30 15:21 | Outpatient (CLI) | payer MEDICAID, SELFPAY ==
--- NOTE | 2022-09-30 | US_ITS ---
WS: [id number] ULTRASOUND RENAL TECHNIQUE: Ultrasound examination of both kidneys. CLINICAL INFORMATION: ASSESSMENT OF CYST COMPARISON: CT abdomen pelvis August 14, 2021 FINDINGS: RIGHT:RIGHT lower pole simple renal cyst measuring 4.3 x 4.0 x 4.4 cm similar in appearance to the pr ior CT August 14, 2021 Right kidney is normal in size and appearance. Echogenicity: Normal. Cortical thickness: 1.4 cm; Normal. Hydronephrosis: None. Perinephric fluid: None. Right kidney measures: 8.5 cm x 4.7 cm x 5.3 cm. LEFT: Chronic markedly atrophic LEFT kidney not well visualized. This is better on the prior CT abdomen pel vis studies. Normal visualized aorta. Normal bladder. US/US renal BI* [id number] IMPRESSION: 1. No hydronephrosis in either kidney. 2. Lobulated RIGHT kidney with cortical scarring. 3. RIGHT lower pole simple renal cyst measuring 4.3 x 4.0 x 4.4 cm similar in appearance to the prior CT August 14, 2021 4. Chronic markedly atrophic LEFT kidney better evaluated on the prior CT abdo men pelvis studies.
== END 2022-09-30 15:22 | disposition home or self-care (01) ==
PROVIDERS: PCP Family Medicine; Visit Provider Registered Nurse
DX: N28.1 Cyst of kidney, acquired (principal)
CPT/HCPCS: 76770

== ENCOUNTER 2022-10-12 15:47 | Outpatient (CLI) | payer MEDICAID, SELFPAY ==
--- NOTE | 2022-10-12 16:08 | XRR_ITS ---
PROCEDURE INFORMATION: Exam: XR Abdomen Exam date and time: 10/12/2022 4:09 PM Age: 46 years old Clinical indication: Nausea and vomiting; Abdominal pain; Generalized; Prior surgery; Surgery type: Gb, appy, , tubal, hystero; Additional info: Nausea and vomiting in adult, acute generalized abdominal frederick TECHNIQUE: Imaging protocol: Radiologic exam of the abdomen. Views: Frontal supine view of the abdomen. 1 View. COMPARISON: CT abdomen pelvis con [id number] 08/14/2021 9:47 PM FINDINGS: Gastrointestinal tract: Normal. No bowel dilation. Bones/joints: Unremarkable. XR/XR abdomen 1V* [id number] IMPRESSION: No acute findings.
[2022-10-12 16:40] LABS: Alanine Aminotransferase 81 U/L (0-33); Alkaline Phosphatase 137 U/L (35-105); Amylase 28 U/L (28-100); Anion Gap 19.2 (5-19); Aspartate Amino Transferase 43 U/L (0-32); Blood Urea Nitrogen 18 mg/dL (6-20); C Reactive Protein 110.4 mg/L (0.0-4.9); Calcium 9.8 mg/dL (8.5-10.5); Carbon Dioxide 26 mmol/L (22-29); Chloride 94 mmol/L (98-107); Globulin 4.8 g/dL (1.3-4.6); Glomerular Filtration Rate 34.6 mL/min (90-130); Glucose 106 mg/dL (65-115); Osmolality Calculated 284 mOsm/kg (285-295); Potassium 3.2 mmol/L (3.5-5.1); Sodium 136 mmol/L (136-145); Total Bilirubin 0.4 mg/dL (0.15-1.2); Total Protein 8.8 g/dL (6.6-8.7)
== END 2022-10-12 15:48 | disposition home or self-care (01) ==
PROVIDERS: PCP Family Medicine; Visit Provider Family Medicine
DX: R10.84 Generalized abdominal pain (principal)
CPT/HCPCS: 36415; 74018; 80053; 82150; 86140

== ENCOUNTER 2022-10-19 08:09 | Outpatient (CLI) | payer MEDICAID, SELFPAY ==
--- NOTE | 2022-10-19 08:30 | FL_ITS ---
WS: [id number] [place] small bowel [place] gastro [id number] REASON FOR EXAM: Abdominal pain FLUOROSCOPY TIME: 1min [id number] # OF SPOT FILMS: 17 FINDINGS: Orally ingested contrast transited rapidly through the small bowel and the colon. No extrinsic or intrinsic narrowing of the small bowel was identified. There was a thickened fold pattern in the descending duodenum. The remainder of the duodenum was unre markable. Normal mucosal pattern in the jejunum and ileum. No intraluminal mass identified. Terminal ileum was normal. FL/FL small bowel FT gastro [id number] IMPRESSION: Thickened fold pattern in the descending duodenum, nonspecific. Findings can be seen with duodenitis, peptic ulcer disease, and pancreatitis. Remainder of the small bowel is unremarkable.
== END 2022-10-19 08:10 | disposition home or self-care (01) ==
LOC: RAD 08:10
PROVIDERS: PCP Family Medicine; Visit Provider Surgery
DX: R93.89 Abnormal findings on diagnostic imaging of other specified body structures (principal); R10.9 Unspecified abdominal pain
CPT/HCPCS: 74250

== ENCOUNTER 2023-03-25 13:25 | Emergency (ER) | payer MEDICAID, SELFPAY ==
[2023-03-25 13:26] VITALS: BP 147/118; PULSE 78; RESP 16; TEMP 36.6; O2SAT 99; BMI 42.4
--- NOTE | 2023-03-25 14:02 | CTR_ITS ---
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 Sagittal and coronal reformatted images were created and reviewed. Radiation optimization: All CT scans at this facility use at least one of these dose optimization techniques: automated exposure control; mA and/or kV adjustment per patient size (includes targeted exams where dose is matched to clinical indication); or iterative reconstruction. Contrast material: OMNI 350; Contrast volume: 75 ml; Contrast route: INTRAVENOUS (IV); REPORTING DATA: Count of CT and Cardiac NM exams in prior 12 months: This patient has received [address] and 0 known cardiac nuclear medicine studies in the 12 months prior to the current study. COMPARISON: CT abdomen pelvis wo con [id number] 08/14/2021 9:47 PM RADIATION DOSE METRICS: Total DLP (mGy-cm): 955.53 FINDINGS: Lungs: Visualized lungs are clear. Pleural spaces: No pleural effusion. Heart: Visualized portions of the heart are unremarkable. Liver: Diffuse, mildly decreased attenuation in the liver. Findings are consistent with mild fatty infiltration. Findings have decreased compared with the prior study. Gallbladder and bile ducts: Stable findings consistent with a previous cholecystectomy. No biliary ductal dilatation. Pancreas: The pancreas is unremarkable. No pancreatic ductal dilatation. Spleen: The spleen is unremarkable. Adrenal glands: The right and left adrenal glands are unremarkable. Kidneys and ureters: Multiple areas of scarring in the right kidney are stable. Multiple cysts in the right kidney. The largest measures 5.1 cm, previously measured 4.9 cm (series 3, image 43). Other cysts are stable. Stable severe atrophy of the left kidney. Stomach and bowel: No obstruction. No mucosal thickening. Appendix: The appendix is visualized and is unremarkable. No findings to suggest acute appendicitis. Intraperitoneal space: No free intraperitoneal air. No ascites. No loculated fluid collections to suggest an abscess. Vasculature: No evidence for aortic aneurysm or aortic dissection. Hepatic veins, portal veins, splenic vein, and SMV are patent. Lymph nodes: No lymphadenopathy. Urinary bladder: The bladder is unremarkable. Reproductive: Stable changes consistent with a previous hysterectomy. The right and left ovaries are unremarkable. Bones/joints: Mild degenerative changes in the visualized spine. Soft tissues: No acute abnormality in the extra-abdominal soft tissues. CT/CT abdomen pelvis w con* [id number] IMPRESSION: 1. No acute abnormality in the abdomen or pelvis. 2. Mild fatty infiltration of the liver, decreased compared with the prior CT scan. 3. Multiple areas of scarring in the right kidney are stable. 4. Multiple cysts in the right kidney. The largest cyst has mildly increased in size, other cysts are stable. 5. Stable severe atrophy of the left kidney. 6. Incidental/nonacute findings are listed in the report. COMMENTS: Consistent with the [employer]'s Incidental Findings Committee white paper (J Am Amy Radiol 2018): Any incidental renal lesion less than 1 cm or classified as too small to characterize, or any incidental cystic renal lesion characterized as simple-appearing, is likely benign. No follow-up imaging is recommended for these lesions per consensus recommendations based on imaging criteria.
--- NOTE | 2023-03-25 14:21 | W.ED.ABDPA2 ---
HPI - Abdominal Pain General: Chief Complaint: Abdominal Pain Stated Complaint: left side abd pain Time Seen by Provider: 03/25/23 13:37 History of Present Illness: 47-year-old female presents emergency department chief complaint of ongoing left-sided abdominal pain this been ongoing for last 2 days patient reports history of chronic constipation the patient reports the pain stays stationary she reports no blood in her stool she does report having no history of diverticulitis. She reports reduced appetite and oral intake she does not recall any recent fevers or chills or any other associated symptoms. Associated Symptoms: Reports constipation; Denies chills and fever(s) Review of Systems General: Reports: 10 or more systems reviewed and unremarkable except in HPI and below Const: Denies: fever(s), chills, fatigue or malaise Eyes: Denies: change in vision or blurry vision Card: Denies: chest pain or palpitations Resp: Denies: dyspnea or productive cough GI: Reports: abdominal pain and constipation : Denies: flank pain Musc: Denies: extremity pain or extremity swelling Skin/Breast: Denies: rash or pruritus Neuro: Denies: headache(s) Psych: Denies: anxiety or depression Les/Lymph: Denies: easy bleeding All/Imm: Denies: urticaria, throat swelling or facial swelling PFSH ED PFSH: Medical History Asthma Colon polyps Fibromyalgia GERD (gastroesophageal reflux disease) 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 Hyperglycemia Hypertension Jejunal intussusception Mixed incontinence urge and stress Mixed stress and urge urinary incontinence Musculoskeletal pain Psychiatric care Recurrent UTI Surgical History History of carpal tunnel release of both wrists 2009 History of cholecystectomy lap- 2009 History of hysterectomy History of tubal ligation 2009 Family History Mother Hypertension Father Hypertension CAD (coronary artery disease) Grandfather Lung disease Denies family history of Diabetes Dementia Cancer Stroke Social History Smoking and tobacco status: never smoked Second hand smoke exposure: No Alcohol intake: current Alcohol intake frequency: holidays/special occasions only Alcohol type: other Desire information about alcohol rehabilitation?: No Counseling given: Yes Other alcohol counseling details: Alcohol and drugs don't mix. Substance/Drug Use: never Desire information about substance/drug rehabilitation?: No Counseling given: No Lives independently: Yes Household members: spouse Marital status: Current occupational status: unemployed Physical Exam Const: COMMON NORMALS: patient oriented x3 and healthy appearing; apparent distress HENMT: COMMON NORMALS: normocephalic and atraumatic HEAD & SCALP: normocephalic and atraumatic Eye: COMMON NORMALS: Equal, round and reactive pupils present and EOMs intact bilaterally PUPIL: Yes Equal, round and reactive pupils present Neck/C-Spine: COMMON NORMALS: full ROM, supple and no JVD Lymph: LYMPHATIC: no lymphadenopathy noted Chest: COMMONS NORMALS: normal inspection of the chest and normal palpation of entire chest wall Resp: COMMON NORMALS: normal respiratory effort, No retractions and clear to auscultation bilaterally EFFORT & INSPECTION: Yes able to speak in complete sentences and Yes symmetric chest movement AUSCULTATION: clear to auscultation bilaterally Cardio: COMMON NORMALS: no JVD, regular rate and regular rhythm RATE: regular rate RHYTHM: regular rhythm GI: COMMON NORMALS: Normal to inspection, nondistended, normoactive bowel sounds present and Soft to palpation; negative for non-tender INSPECTION: Yes normal to inspection PALPATION: Yes Soft to palpation OTHER: Obvious pain to palpation appreciated in the left lateral flank and left upper quadrant otherwise soft nontender nondistended : COMMON NORMALS: Yes no CVA tenderness BLADDER/KIDNEY EXAM: Yes no CVA tenderness Back/Pelvis: COMMON NORMALS: no CVA tenderness Extremity: COMMON NORMALS: normal to inspection and full ROM Neuro: COMMON NORMALS: patient oriented x3, CN's II-XII intact bilaterally, moves all extremities and no focal motor deficits Psych: COMMON NORMALS: mental status grossly normal, Normal thought process present, cooperative and normal affect THOUGHT PROCESS: Normal thought process present Skin: COMMON NORMALS: no rashes or lesions noted GENERAL SKIN EXAM: no rashes or lesions noted Course Vital Signs: Vital signs: Vital Signs Temperature 97.9 F 03/25/23 13:26 Pulse Rate 76 03/25/23 14:53 Respiratory Rate 14 03/25/23 14:29 Blood Pressure 156/101 03/25/23 14:53 Pulse Oximetry 95 03/25/23 14:53 Oxygen Delivery Me thod Room Air 05/06/23 14:53 MDM - Abdominal Pain Medical Decision Making Due to the patient's symptoms and condition basic lab work imaging will be obtained IV will be established we will continue to follow concerns diverticular disease versus other is present. Lab work and imaging came back reassuring to have a urinary tract infection patient is having discharged home with an additional medications for her pain as well as UTI advised further follow-up primary care in 3 to 5 days which patient vies return the interim if any of her symptoms persist or worse Lab Data 03/25/23 14:31 03/25/23 14:31 Labs/Radiology: Radiology Impressions Abdomen/Pelvis CT 03/25/23 14:02 IMPRESSION: 1. No acute abnormality in the abdomen or pelvis. 2. Mild fatty infiltration of the liver, decreased compared with the prior CT scan. 3. Multiple areas of scarring in the right kidney are stable. 4. Multiple cysts in the right kidney. The largest cyst has mildly increased in size, other cysts are stable. 5. Stable severe atrophy of the left kidney. 6. Incidental/nonacute findings are listed in the report. COMMENTS: Consistent with the [employer]'s Incidental Findings Committee white paper (J Am Amy Radiol 2018): Any incidental renal lesion less than 1 cm or classified as too small to characterize, or any incidental cystic renal lesion characterized as simple-appearing, is likely benign. No follow-up imaging is recommended for these lesions per consensus recommendations based on imaging criteria. Laboratory Results WBC 8.3 10^3/uL (4.0-10.0) 03/25/23 14:31 RBC 5.14 10^6/uL (4.1-5.3) 03/25/23 14:31 Hgb 14.6 g/dL (11.5-15.3) 03/25/23 14:31 Hct 45.1 % (37.0-47.0) 03/25/23 14:31 MCV 87.7 fl (81-99) 03/25/23 14:31 MCH 28.4 pg (28.0-34.0) 03/25/23 14:31 MCHC 32.4 g/dL (30.0-36.0) 03/25/23 14:31 RDW 12.3 % (12.1-15.1) 03/25/23 14:31 Plt Count 277 10^3/cmm (130-400) 03/25/23 14:31 MPV 9.6 fL (7.4-10.4) 03/25/23 14:31 Neut % (Auto) 49.7 % 03/25/23 14:31 Lymph % (Auto) 42.0 % 03/25/23 14:31 Warren % (Auto) 5.6 % 03/25/23 14:31 Eos % (Auto) 1.5 % 03/25/23 14:31 Baso % (Auto) 0.8 % 03/25/23 14:31 Neut # (Auto) 4.12 10^3/uL (1.8-7.7) 03/25/23 14:31 Lymph # (Auto) 3.5 10^3/uL (0.8-4.8) 03/25/23 14:31 Warren # (Auto) 0.5 10^3/uL (0.2-0.9) 03/25/23 14:31 Eos # (Auto) 0.1 10^3/uL (0.0-0.8) 03/25/23 14:31 Baso # (Auto) 0.1 10^3/uL (0.0-0.1) 03/25/23 14:31 Nucleated RBC % (auto) 0 % 03/25/23 14: Nucleated RBCs # 0.0 /100WBC 03/25/23 14:31 Sodium 138 mmol/L (136-145) 03/25/23 14:31 Potassium 3.8 mmol/L (3.5-5.1) 03/25/23 14:31 Chloride 102 mmol/L (98-107) 03/25/23 14:31 Carbon Dioxide 27 mmol/L (22-29) 03/25/23 14:31 Anion Gap 12.8 (5-19) 03/25/23 14:31 BUN 14 mg/dL (6-20) 03/25/23 14:31 Creatinine 1.4 mg/dL (0.5-0.9) H 03/25/23 14:31 GFR Calculation 40.1 mL/min (90-130) L 03/25/23 14:31 Glucose 86 mg/dL (65-115) 03/25/23 14:31 Calculated Osmolality 286 mOsm/kg (285-295) 03/25/23 14:31 Lactate 1.3 mmol/L (0.5-2.2) 03/25/23 14:31 Calcium 9.2 mg/dL (8.5-10.5) 03/25/23 14:31 Total Bilirubin 0.4 mg/dL (0.15-1.2) 03/25/23 14:31 AST 17 U/L (0-32) 03/25/23 14:31 ALT 27 U/L (0-33) 03/25/23 14:31 Alkaline Phosphatase 86 U/L (35-105) 03/25/23 14:31 C-Reactive Protein 4.1 mg/L (0.0-4.9) 03/25/23 14: Total Protein 7.5 g/dL (6.6-8.7) 03/25/23 14: Albumin 3.9 g/dL (3.5-5.2) 03/25/23 14:31 Globulin 3.6 g/dL (1.3-4.6) 03/25/23 14:31 Urine Color Yellow (Yellow) 03/25/23 16:20 Urine Appearance Clear (CLEAR) 03/25/23 16:20 Urine pH 5 (5-7) 03/25/23 16:20 Ur Specific Gower 1.020 (1.005-1.030) 03/25/23 16:20 Urine Protein Neg (Negative) 03/25/23 16:20 Urine Glucose (UA) Norm (Normal) 03/25/23 16:20 Urine Ketones Negative (Negative) 03/25/23 16:20 Urine Blood 2+ (Negative) H 03/25/23 16:20 Urine Nitrate Positive (Negative) H 03/25/23 16:20 Urine Bilirubin 1+ (Negative) H 03/25/23 16:20 Urine Urobilinogen Norm mg/dL (Negative) 03/25/23 16:20 Ur Leukocyte Esterase Negative (Negative) 03/25/23 16:20 Urine RBC 0-4 /hpf (0-2) H 03/25/23 16:20 Urine WBC None /hpf (0-5) 03/25/23 16:20 Ur Squamous Epith Cells 5-10 /hpf (0-5) H 05/06/23 16:20 Amorphous Sediment Not Reportable 03/25/23 16:20 Urine Bacteria 2+ /hpf (NONE) H 03/25/23 16:20 Discharge Plan Discharge Patient Disposition: Home Clinical Impression: Left sided abdominal pain, Urinary tract infection Condition: Stable Prescriptions: New Cipro 500 mg tablet 500 mg PO BID Qty: 14 0RF tramadol 50 mg tablet 50 mg PO Q8H PRN (Reason: pain) Qty: 14 0RF No Action loratadine [Allergy Relief (loratadine)] 10 mg tablet 10 mg PO DAILY ascorbic acid (vitamin C) 1,000 mg tablet 500 mg PO DAILY chlorthalidone 25 mg tablet 25 mg PO DAILY potassium citrate 10 mEq (1,080 mg) tablet extended release 20 meq PO TID propranolol 10 mg tablet 10 mg PO .HS hydrocodone-acetaminophen 10-325 mg tablet 1 tab PO DAILY PRN (Reason: Pain) (DME) AFO SPECTRUM See Rx Instructions .Route .MEDSUPPLY Qty: 1 0RF Rx Instructions: As directed Patient has a history of unstable ankles (DME) Spectrum AFO to the right with Shoes- New Balance See Rx Instructions .Route .MEDSUPPLY Qty: 1 0RF Rx Instructions: As directed by Vasyl P & O epinephrine [EpiPen] 0.3 mg/0.3 mL auto-injector 0.3 mg IM Q4H PRN (Reason: Allergic Reaction) cholecalciferol (vitamin D3) 125 mcg (5,000 unit) capsule 125 mcg PO DAILY budesonide-formoterol [Symbicort] 80-4.5 mcg/actuation HFA aerosol inhaler 1 inh inhalation BID hydroxyzine HCl 50 mg tablet 50 mg PO QID PRN (Reason: anxiety/insomnia) Qty: 120 2RF fluticasone propionate [Flonase Allergy Relief] 50 mcg/actuation spray,suspension 1 spray intranasal DAILY PRN (Reason: allergy symptoms) Qty: 16 0RF Rx Instructions: administer into each nostril aspirin [Adult Aspirin Regimen] 81 mg tablet,delayed release (DR/EC) 81 mg PO DAILY methenamine hippurate 1 gram tablet 1 g PO BID Qty: 60 12RF Rx Instructions: Take 1000 mg of vitamin C with each dose of methenamine omeprazole 20 mg capsule,delayed release(DR/EC) 20 mg PO BID solifenacin [Vesicare] 5 mg tablet 5 mg PO DAILY Qty: 30 12RF metoclopramide HCl 10 mg tablet 10 mg PO Q6H PRN duloxetine 60 mg capsule,delayed release(DR/EC) 120 mg PO DAILY Qty: 60 2RF ropinirole 4 mg tablet 4 mg PO .HS Qty: 30 2RF cephalexin 500 mg tablet 500 mg PO BID 7 Days Qty: 14 0RF Discharge Orders: Discharge ED (Routine); Ordered 03/25/23 Ordered By: Flaquito Lewis Referrals: Zita Gan DO [Primary Care Provider] - 4-7 days Discharge Diet: Advance as tolerated and As Directed Discharge Activity: Increase activity as tolerated Patient Instructions: Abdominal Pain (ED), Opioid Safety, Pain Management Activity Restrictions/Additional Instructions: Please further follow-up with your primary care doctor in 3 to 5 days, take medication as prescribed please return the interim if any of her symptoms persist or worse Coding Level of Care Code ED [employer] 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
[2023-03-25] MEDS: sodium chloride 0.9% 1,000 ML 999 ML IV (14:26)
[2023-03-25] MEDS: ondansetron 2 mg/ML SDV 2 mL 4 MG IVP (14:28)
[2023-03-25 14:29] VITALS: RESP 14
[2023-03-25] MEDS: fentaNYL 50 mcg/mL INJ 2mL IVP (14:29)
[2023-03-25 14:43] LABS: Basophils # 0.1 10^3/uL (0.0-0.1); Basophils % 0.8 %; Eosinophils # 0.1 10^3/uL (0.0-0.8); Eosinophils % 1.5 %; Hematocrit 45.1 % (37.0-47.0); Hemoglobin 14.6 g/dL (11.5-15.3); Lymphocytes # 3.5 10^3/uL (0.8-4.8); Mean Corpuscular HGB Conc 32.4 g/dL (30.0-36.0); Mean Corpuscular Hemoglobin 28.4 pg (28.0-34.0); Mean Corpuscular Volume 87.7 fl (81-99); Mean Platelet Volume 9.6 fL (7.4-10.4); Monocytes # 0.5 10^3/uL (0.2-0.9); Monocytes % 5.6 %; Neutrophils # 4.12 10^3/uL (1.8-7.7); Neutrophils % 49.7 %; Nucleated Red Blood Cells % 0 %; Platelet Count 277 10^3/cmm (130-400); Red Blood Count 5.14 10^6/uL (4.1-5.3); Red Cell Distribution Width 12.3 % (12.1-15.1); White Blood Count 8.3 10^3/uL (4.0-10.0)
[2023-03-25 14:53] VITALS: BP 156/101; PULSE 76; O2SAT 95
[2023-03-25 15:00] LABS: Lactate (Lactic Acid level) 1.3 mmol/L (0.5-2.2)
[2023-03-25 15:01] LABS: Alanine Aminotransferase 27 U/L (0-33); Albumin Level 3.9 g/dL (3.5-5.2); Alkaline Phosphatase 86 U/L (35-105); Anion Gap 12.8 (5-19); Aspartate Amino Transferase 17 U/L (0-32); Blood Urea Nitrogen 14 mg/dL (6-20); C Reactive Protein 4.1 mg/L (0.0-4.9); Calcium 9.2 mg/dL (8.5-10.5); Carbon Dioxide 27 mmol/L (22-29); Chloride 102 mmol/L (98-107); Globulin 3.6 g/dL (1.3-4.6); Glomerular Filtration Rate 40.1 mL/min (90-130); Glucose 86 mg/dL (65-115); Osmolality Calculated 286 mOsm/kg (285-295); Potassium 3.8 mmol/L (3.5-5.1); Sodium 138 mmol/L (136-145); Total Bilirubin 0.4 mg/dL (0.15-1.2); Total Protein 7.5 g/dL (6.6-8.7)
[2023-03-25] MEDS: iohexol 350 mg/mL 500 mL Btl (per mL) IV (15:11)
[2023-03-25] MEDS: ketorolac 30 mg/mL INJ 15 MG IVP (16:35)
[2023-03-25 16:47] LABS: Add Urine Microscopic? YES; Bilirubin Urine 1+ (Negative); Blood Urine 2+ (Negative); Glucose Urine UA Norm (Normal); Ketones Urine Negative (Negative); Leukocyte Esterase Urine Negative (Negative); Nitrate Urine Positive (Negative); Protein Urine Neg (Negative); RBC Urine 0-4 /hpf (0-2); Urine Appearance Clear (CLEAR); Urine Color Yellow (Yellow); Urobilinogen Urine Norm (Negative); pH Urine 5 (5-7)
[2023-03-25 16:48] LABS: Add Urine Culture? Yes; Bacteria Urine 2+ /hpf
== END 2023-03-25 17:05 | disposition home or self-care (01) ==
PROVIDERS: Emergency Provider Emergency Medicine; PCP Family Medicine
DX: N39.0 Urinary tract infection, site not specified (principal); Z79.82 Long term (current) use of aspirin; I10 Essential (primary) hypertension; Z87.440 Personal history of urinary (tract) infections
CPT/HCPCS: 74177; 80053; 81001; 83605; 85025; 86140; 87077; 87086; 87186; 96374; 96375; 99285; J1885; J2405; J3010; J7030; Q9967

== ENCOUNTER 2023-04-08 08:23 | Emergency (ER) | payer MEDICAID, SELFPAY ==
[2023-04-08] VITALS (8 sets, daily range): BP systolic 128–206; BP diastolic 75–135; PULSE 67–78; RESP 17–21; TEMP 36.7; O2SAT 93–98
--- NOTE | 2023-04-08 08:26 | XRR_ITS ---
PROCEDURE INFORMATION: Exam: XR Chest Exam date and time: 04/08/2023 8:36 AM Age: 47 years old Clinical indication: Pain; Angina pectoris; Additional info: Cp TECHNIQUE: Imaging protocol: Radiologic exam of the chest. Views: 1 view. COMPARISON: CR XR chest 1V portable [id number] 02/01/2022 3:36 AM FINDINGS: Lungs: No focal airspace disease. Pleural spaces: Unremarkable. No pleural effusion. No pneumothorax. Heart/Mediastinum: Cardiomediastinal silhouette is within normal limits. Bones/joints: Unremarkable. XR/XR chest 1V portable [id number] IMPRESSION: No acute cardiopulmonary abnormality.
--- NOTE | 2023-04-08 08:28 | ECG_ITS ---
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 Measurements Intervals [place] Rate: 73 P: 131 IA: 120 QRS: 4 QRSD: 98 T: 155 QT: 364 QTc: 402 Interpretive Statements SINUS RHYTHM INCOMPLETE RIGHT BUNDLE BRANCH BLOCK [90+ ms QRS DURATION, TERMINAL R IN V1/V2, 40+ ms S IN I/aVL/V4/V5/V6] NONSPECIFIC T-WAVE ABNORMALITY Compared to ECG 02/01/2022 05:08:57 Incomplete right bundle-branch block now present Sinus bradycardia no longer present T-wave abnormality still present Electronically Signed On 04-08-2023 14:00:53 CDT by Dario Shafer M.D. [id number]
--- NOTE | 2023-04-08 08:37 | W.ED.CHESTPA ---
HPI - Chest Pain General: Chief Complaint: Chest Pain Stated Complaint: chest pain Time Seen by Provider: 04/08/23 08:25 Source: patient Mode of arrival: ambulatory Limitations: no limitations History of Present Illness: 47-year-old female states she had sharp chest pains that started roughly 45 minutes ago she states its in her left side of her chest is worse with palpation states it hurts with deep breaths as well. She denies any diaphoresis denies any cough or fever states pain slightly improved with rest her pain is currently a 7 out of 10. Associated symptoms: Deny abdominal pain, dyspnea, fever(s), nausea or vomiting Review of Systems Const: Denies: fever(s), chills, body aches or change in appetite ENMT: Denies: throat pain or dental pain Card: Reports: chest pain Resp: Denies: dyspnea GI: Denies: abdominal pain, nausea, vomiting or diarrhea : Denies: dysuria Musc: Denies: neck pain or back pain Skin/Breast: Denies: rash Neuro: Denies: headache(s) PFSH ED PFSH: Medical History Asthma Colon polyps Fibromyalgia GERD (gastroesophageal reflux disease) 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 Hyperglycemia Hypertension Jejunal intussusception Mixed incontinence urge and stress Mixed stress and urge urinary incontinence Musculoskeletal pain Psychiatric care Recurrent UTI Surgical History History of carpal tunnel release of both wrists 2009 History of cholecystectomy lap- 2009 History of hysterectomy History of tubal ligation 2009 Family History Mother Hypertension Father Hypertension CAD (coronary artery disease) Grandfather Lung disease Denies family history of Diabetes Dementia Cancer Stroke Social History Smoking and tobacco status: never smoked Second hand smoke exposure: No Alcohol intake: current Alcohol intake frequency: holidays/special occasions only Alcohol type: other Desire information about alcohol rehabilitation?: No Counseling given: Yes Other alcohol counseling details: Alcohol and drugs don't mix. Substance/Drug Use: never Desire information about substance/drug rehabilitation?: No Counseling given: No Lives independently: Yes Household members: spouse Marital status: Current occupational status: unemployed Physical Exam Const: COMMON NORMALS: no acute distress, patient oriented x3 and healthy appearing HENMT: COMMON NORMALS: normocephalic and atraumatic HEAD & SCALP: normocephalic and atraumatic Eye: COMMON NORMALS: conjunctivae normal CONJUNCTIVA: Yes conjunctivae normal Neck/C-Spine: COMMON NORMALS: full ROM and supple Chest: COMMONS NORMALS: normal inspection of the chest OTHER: point tender over left chest reproduces pain Resp: COMMON NORMALS: normal respiratory effort, No retractions, No use of accessory muscles and clear to auscultation bilaterally AUSCULTATION: clear to auscultation bilaterally Cardio: COMMON NORMALS: regular rate, regular rhythm and No murmurs present (Cardio) RATE: regular rate RHYTHM: regular rhythm GI: COMMON NORMALS: Normal to inspection, nondistended, normoactive bowel sounds present, Soft to palpation, non-tender and no masses PALPATION: Yes Soft to palpation Extremity: COMMON NORMALS: normal to inspection and full ROM Neuro: COMMON NORMALS: patient oriented x3, moves all extremities and no focal motor deficits Psych: COMMON NORMALS: mental status grossly normal, Normal thought process present and cooperative THOUGHT PROCESS: Normal thought process present Skin: COMMON NORMALS: no rashes or lesions noted and no wounds GENERAL SKIN EXAM: no rashes or lesions noted Course Vital Signs: Vital signs: Vital Signs Temperature 98.0 F 04/08/23 08:29 Pulse Rate 70 04/08/23 10:37 Respiratory Rate 20 H 04/08/23 10:37 Blood Pressure 206/135 04/08/23 10:37 Pulse Oximetry 96 04/08/23 10:37 Oxygen Delivery Me thod Room Air 04/08/23 08:29 MDM - Chest Pain Medical Decision Making Patient presents for chest pain is likely chest wall pain she is point tender on exam reproduces her pain initial repeat troponins EKGs and x-ray are all normal no signs of acute coronary syndrome she has no signs of PE or dissection she is stable for discharge she is to follow-up with her PCP we will place her on Naprosyn she is return if worsening. Differential Diagnosis Unlikely acute massive pulmonary embolism, acute respiratory failure or acute myocardial infarction Medical Records I reviewed the patient's medical records. Lab Data I reviewed the patient's lab results. 04/08/23 08:35 05/20/23 08:35 Radiology Impressions Chest X-Ray 04/08/23 08:26 IMPRESSION: No acute cardiopulmonary abnormality. Laboratory Results WBC 8.8 10^3/uL (4.0-10.0) 04/08/23 08:35 RBC 5.06 10^6/uL (4.1-5.3) 04/08/23 08:35 Hgb 14.2 g/dL (11.5-15.3) 04/08/23 08:35 Hct 44.8 % (37.0-47.0) 04/08/23 08:35 MCV 88.5 fl (81-99) 04/08/23 08:35 MCH 28.1 pg (28.0-34.0) 04/08/23 08:35 MCHC 31.7 g/dL (30.0-36.0) 04/08/23 08:35 RDW 12.5 % (12.1-15.1) 04/08/23 08:35 Plt Count 190 10^3/cmm (130-400) 04/08/23 08:35 MPV 10.1 fL (7.4-10.4) 04/08/23 08:35 Neut % (Auto) 44.3 % 04/08/23 08:35 Lymph % (Auto) 48.1 % 04/08/23 08:35 Harding % (Auto) 5.0 % 04/08/23 08:35 Eos % (Auto) 1.5 % 04/08/23 08:35 Baso % (Auto) 0.9 % 04/08/23 08:35 Neut # (Auto) 3.91 10^3/uL (1.8-7.7) 04/08/23 08:35 Lymph # (Auto) 4.2 10^3/uL (0.8-4.8) 04/08/23 08:35 Harding # (Auto) 0.4 10^3/uL (0.2-0.9) 04/08/23 08:35 Eos # (Auto) 0.1 10^3/uL (0.0-0.8) 04/08/23 08:35 Baso # (Auto) 0.1 10^3/uL (0.0-0.1) 04/08/23 08:35 Nucleated RBC % (auto) 0 % 04/08/23 08:35 Nucleated RBCs # 0.0 /100WBC 04/08/23 08:35 PT 12.40 SECONDS (12.1-14.9) 04/08/23 08:35 INR 0.90 (0.8-1.2) 04/08/23 08:35 Sodium 137 mmol/L (136-145) 04/08/23 08:35 Potassium 3.9 mmol/L (3.5-5.1) 04/08/23 08:35 Chloride 100 mmol/L (98-107) 04/08/23 08:35 Carbon Dioxide 26 mmol/L (22-29) 04/08/23 08:35 Anion Gap 14.9 (5-19) 04/08/23 08:35 BUN 15 mg/dL (6-20) 04/08/23 08:35 Creatinine 1.8 mg/dL (0.5-0.9) H 04/08/23 08:35 GFR Calculation 30.0 mL/min (90-130) L 04/08/23 08:35 Glucose 82 mg/dL (65-115) 04/08/23 08:35 Calculated Osmolality 284 mOsm/kg (285-295) L 04/08/23 08:35 Calcium 9.1 mg/dL (8.5-10.5) 04/08/23 08:35 Total Bilirubin 0.5 mg/dL (0.15-1.2) 04/08/23 08:35 AST 21 U/L (0-32) 04/08/23 08:35 ALT 26 U/L (0-33) 04/08/23 08:35 Alkaline Phosphatase 90 U/L (35-105) 04/08/23 08:35 Troponin T Baseline 6 ng/L (0-10) 04/08/23 08:35 Troponin T 120 Minute 6.00 ng/L (0-10) 04/08/23 10:40 Total Protein 7.1 g/dL (6.6-8.7) 04/08/23 08:35 Albumin 4.1 g/dL (3.5-5.2) 04/08/23 08:35 Globulin 3.0 g/dL (1.3-4.6) 04/08/23 08:35 EKG Data EKG 1: I personally reviewed and interpreted this EKG as follows: EKG interpretation date: 04/08/23 EKG interpretation time: 08:28 Interpretation: nsr hr [address] or t wave abnormalities qrs 98 qtc 389 EKG 2: I personally reviewed and interpreted this EKG as follows: EKG interpretation date: 04/08/23 EKG interpretation time: 10:26 Interpretation: nsr hr [address] or t wave abnormalities qrs 96 qtc 413 Discharge Plan Discharge Patient Disposition: Home Clinical Impression: Chest wall pain Condition: Stable Prescriptions: New Naprosyn 500 mg tablet 500 mg PO BID PRN (Reason: pain) Qty: 20 0RF No Action loratadine [Allergy Relief (loratadine)] 10 mg tablet 10 mg PO DAILY ascorbic acid (vitamin C) 1,000 mg tablet 500 mg PO DAILY chlorthalidone 25 mg tablet 25 mg PO DAILY potassium citrate 10 mEq (1,080 mg) tablet extended release 20 meq PO TID propranolol 10 mg tablet 10 mg PO .HS hydrocodone-acetaminophen 10-325 mg tablet 1 tab PO DAILY PRN (Reason: Pain) (DME) AFO SPECTRUM See Rx Instructions .Route .MEDSUPPLY Qty: 1 0RF Rx Instructions: As directed Patient has a history of unstable ankles (DME) Spectrum AFO to the right with Shoes- New Balance See Rx Instructions .Route .MEDSUPPLY Qty: 1 0RF Rx Instructions: As directed by Vasyl P & O epinephrine [EpiPen] 0.3 mg/0.3 mL auto-injector 0.3 mg IM Q4H PRN (Reason: Allergic Reaction) cholecalciferol (vitamin D3) 125 mcg (5,000 unit) capsule 125 mcg PO DAILY budesonide-formoterol [Symbicort] 80-4.5 mcg/actuation HFA aerosol inhaler 1 inh inhalation BID hydroxyzine HCl 50 mg tablet 50 mg PO QID PRN (Reason: anxiety/insomnia) Qty: 120 2RF fluticasone propionate [Flonase Allergy Relief] 50 mcg/actuation spray,suspension 1 spray intranasal DAILY PRN (Reason: allergy symptoms) Qty: 16 0RF Rx Instructions: administer into each nostril aspirin [Adult Aspirin Regimen] 81 mg tablet,delayed release (DR/EC) 81 mg PO DAILY methenamine hippurate 1 gram tablet 1 g PO BID Qty: 60 12RF Rx Instructions: Take 1000 mg of vitamin C with each dose of methenamine omeprazole 20 mg capsule,delayed release(DR/EC) 20 mg PO BID solifenacin [Vesicare] 5 mg tablet 5 mg PO DAILY Qty: 30 12RF metoclopramide HCl 10 mg tablet 10 mg PO Q6H PRN duloxetine 60 mg capsule,delayed release(DR/EC) 120 mg PO DAILY Qty: 60 2RF ropinirole 4 mg tablet 4 mg PO .HS Qty: 30 2RF cephalexin 500 mg tablet 500 mg PO BID 7 Days Qty: 14 0RF Cipro 500 mg tablet 500 mg PO BID Qty: 14 0RF tramadol 50 mg tablet 50 mg PO Q8H PRN (Reason: pain) Qty: 14 0RF Discharge Orders: Discharge ED (Routine); Ordered 04/08/23 Ordered By: Rickey Daniel Referrals: Zita Gan DO [Primary Care Provider] - 1-3 days Discharge Diet: Advance as tolerated Discharge Activity: Resume usual activity Patient Instructions: Chest Wall Pain (ED) Coding Level of Care Code ED [employer] 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
[2023-04-08] MEDS: morphine 4 mg/mL SDV 1 mL IVP (08:39)
[2023-04-08] MEDS: ondansetron 2 mg/ML SDV 2 mL 4 MG IVP (08:39)
[2023-04-08 08:46] LABS: Basophils # 0.1 10^3/uL (0.0-0.1); Basophils % 0.9 %; Eosinophils # 0.1 10^3/uL (0.0-0.8); Eosinophils % 1.5 %; Hematocrit 44.8 % (37.0-47.0); Hemoglobin 14.2 g/dL (11.5-15.3); Lymphocytes # 4.2 10^3/uL (0.8-4.8); Lymphocytes % 48.1 %; Mean Corpuscular HGB Conc 31.7 g/dL (30.0-36.0); Mean Corpuscular Hemoglobin 28.1 pg (28.0-34.0); Mean Corpuscular Volume 88.5 fl (81-99); Mean Platelet Volume 10.1 fL (7.4-10.4); Monocytes # 0.4 10^3/uL (0.2-0.9); Neutrophils # 3.91 10^3/uL (1.8-7.7); Neutrophils % 44.3 %; Nucleated Red Blood Cells % 0 %; Platelet Count 190 10^3/cmm (130-400); Red Blood Count 5.06 10^6/uL (4.1-5.3); Red Cell Distribution Width 12.5 % (12.1-15.1); White Blood Count 8.8 10^3/uL (4.0-10.0)
[2023-04-08 09:05] LABS: Alanine Aminotransferase 26 U/L (0-33); Albumin Level 4.1 g/dL (3.5-5.2); Alkaline Phosphatase 90 U/L (35-105); Anion Gap 14.9 (5-19); Aspartate Amino Transferase 21 U/L (0-32); Blood Urea Nitrogen 15 mg/dL (6-20); Calcium 9.1 mg/dL (8.5-10.5); Carbon Dioxide 26 mmol/L (22-29); Chloride 100 mmol/L (98-107); Glucose 82 mg/dL (65-115); Osmolality Calculated 284 mOsm/kg (285-295); Potassium 3.9 mmol/L (3.5-5.1); Sodium 137 mmol/L (136-145); Total Bilirubin 0.5 mg/dL (0.15-1.2); Total Protein 7.1 g/dL (6.6-8.7); Troponin(5th) Baseline 6 ng/L (0-10)
[2023-04-08] MEDS: hyDRALAzine 20 mg/mL INJ 1 mL 10 MG IVP (09:11)
--- NOTE | 2023-04-08 10:26 | ECG_ITS ---
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 Measurements Intervals [place] Rate: 64 P: 106 WA: 122 QRS: 5 QRSD: 96 T: 154 QT: 404 QTc: 417 Interpretive Statements SINUS RHYTHM MODERATE T-WAVE ABNORMALITY, CONSIDER LATERAL ISCHEMIA [-0.1+ mV T-WAVE IN I/aVL/V5/V6] Compared to ECG 04/08/2023 08:28:20 Possible ischemia now present Incomplete right bundle-branch block no longer present T-wave abnormality still present Electronically Signed On 04-08-2023 14:01:42 CDT by Dario Shafer M.D. [id number]
[2023-04-08] MEDS: labetalol 5 mg/mL SDV 20mL 10 MG IVP (10:36)
[2023-04-08 11:17] LABS: Troponin 5 2HR Delta 0 ABS# (0-10)
== END 2023-04-08 12:21 | disposition home or self-care (01) ==
PROVIDERS: Emergency Provider Emergency Medicine; PCP Family Medicine
DX: R07.89 Other chest pain (principal)
CPT/HCPCS: 71045; 80053; 84484; 85025; 85610; 93005; 96374; 96375; 99285; J0360; J2270; J2405; J3490

== ENCOUNTER 2023-07-05 15:39 | Outpatient (CLI) | payer OTHER, MEDICAID, SELFPAY ==
--- NOTE | 2023-07-05 15:58 | XRR_ITS ---
PROCEDURE INFORMATION: Exam: XR Left Ankle Exam date and time: 07/05/2023 4:08 PM Age: 47 years old Clinical indication: Pain; Ankle; Left; Additional info: Acute left ankle pain TECHNIQUE: Imaging protocol: Radiologic exam of the left ankle. Views: 3 or more views. COMPARISON: No relevant prior studies available. FINDINGS: Bones/joints: Normal. Soft tissues: Unremarkable. XR/XR ankle LT min 3V* [id number] IMPRESSION: No acute findings.
== END 2023-07-05 15:40 | disposition home or self-care (01) ==
PROVIDERS: PCP Family Medicine; Visit Provider Nurse Practitioner Family
DX: M25.572 Pain in left ankle and joints of left foot (principal)
CPT/HCPCS: 73610

== ENCOUNTER 2023-07-27 09:45 | Outpatient (CLI) | payer MEDICAID, SELFPAY ==
--- NOTE | 2023-07-27 10:05 | MM_ITS ---
WS: [id number] Bilateral screening 3D tomosynthesis digital mammogram, 07/27/2023 Clinical Data: SCREENING Comparison: 07/06/2021, 01/31/2020, 09/02/2016. Findings: The breast parenchymal pattern shows fibroglandular tissue. No spiculated masses or clustered calcifi cations are seen. There are no secondary signs of carcinoma. Impression: 1. Negative bilateral mammogram unchanged. 2. Recommend annual screening mammograms. MM/[place] [id number] BIRADS: 1-Negative FOLLOW UP: 1 Year Follow-up The CAD process checker was used.
== END 2023-07-27 09:46 | disposition home or self-care (01) ==
LOC: RAD 09:46
PROVIDERS: PCP Family Medicine; Visit Provider Nurse Practitioner Family
DX: Z12.31 Encounter for screening mammogram for malignant neoplasm of breast (principal)
CPT/HCPCS: 77063; 77067

== ENCOUNTER 2023-08-26 19:31 | Emergency (ER) | payer OTHER, MEDICAID, SELFPAY ==
[2023-08-26 20:05] VITALS: BP 125/90; PULSE 76; RESP 18; TEMP 36.8; O2SAT 96; BMI 40.4
[2023-08-26 20:21] LABS: Basophils # 0.1 10^3/uL (0.0-0.1); Basophils % 1.4 %; Eosinophils # 0.2 10^3/uL (0.0-0.8); Eosinophils % 2.4 %; Hematocrit 38.7 % (36-47); Lymphocytes # 3.1 10^3/uL (0.8-4.8); Lymphocytes % 41.3 %; Mean Corpuscular Volume 84.3 fl (85-98); Mean Platelet Volume 8.9 fL (7.4-10.4); Monocytes # 0.5 10^3/uL (0.2-0.9); Monocytes % 6.1 %; Neutrophils # 3.58 10^3/uL (1.8-7.7); Neutrophils % 48.5 %; Nucleated Red Blood Cells % 0 %; Platelet Count 298 10^3/cmm (157-399); Red Blood Count 4.59 10^6/uL (3.85-5.65); Red Cell Distribution Width 12.2 % (12.1-15.1); White Blood Count 7.38 10^3/uL (3.29-11.43)
--- NOTE | 2023-08-26 20:22 | CTR_ITS ---
PROCEDURE INFORMATION: Exam: CT Abdomen And Pelvis With Contrast Exam date and time: 08/26/2023 9:09 PM Age: 47 years old Clinical indication: Abdominal pain; Localized; Right lower quadrant (rlq); Prior surgery; Surgery date: 6+ months; Surgery type: Gb. Hysterectomy; Patient HX: Rlq pain with nausea; Additional info: Rlq/pelvic pain TECHNIQUE: Imaging protocol: Computed tomography of the abdomen and pelvis with contrast. Radiation optimization: All CT scans at this facility use at least one of these dose optimization techniques: automated exposure control; mA and/or kV adjustment per patient size (includes targeted exams where dose is matched to clinical indication); or iterative reconstruction. Contrast material: OMNI 350; Contrast volume: 100 ml; Contrast route: INTRAVENOUS (IV); REPORTING DATA: Count of CT and Cardiac NM exams in prior 12 months: This patient has received 0 known CTs and 0 known cardiac nuclear medicine studies in the 12 months prior to the current study. COMPARISON: No relevant prior studies available. RADIATION DOSE METRICS: Total DLP (mGy-cm): 984.47 FINDINGS: Lungs: Right lower lobe 5 mm pulmonary nodule. Liver: Unremarkable. Gallbladder and bile ducts: Status post cholecystectomy. Pancreas: Unremarkable. Spleen: Unremarkable. Adrenal glands: Unremarkable. Kidneys and ureters: Atrophic left kidney. Hypertrophied right kidney with areas of cortical scarring. Right renal cyst. No hydronephrosis. Stomach and bowel: Unremarkable. No bowel obstruction. Appendix: No evidence of appendicitis. Intraperitoneal space: Unremarkable. Vasculature: Unremarkable. Lymph nodes: Unremarkable. Urinary bladder: Unremarkable as visualized. Reproductive: Status post hysterectomy. Bones/joints: No acute osseous abnormality. Soft tissues: Subcutaneous stranding in the anterior abdominal wall, query sequela of subcutaneous injection . CT/CT abdomen pelvis w con* [id number] IMPRESSION: 1. No acute findings in the abdomen and pelvis. 2. Atrophic left kidney. 3. Right lower lobe 5 mm pulmonary nodule. For patients at low risk (minimal or absent history of smoking and of other known risk factors), no routine follow-up is indicated. For patients at high risk (history of smoking or of other known risk factors), consider optional CT Chest at 12 months. (Reference: Kenroy) COMMENTS: Consistent with the [employer]'s Incidental Findings Committee white paper (J Am Amy Radiol 2018): Any incidental renal lesion less than 1 cm or classified as too small to characterize, or any incidental cystic renal lesion characterized as simple-appearing, is likely benign. No follow-up imaging is recommended for these lesions per consensus recommendations based on imaging criteria. REFERENCES: Kenroy Pappas, et al. Guidelines for Management of Incidental Pulmonary Nodules Detected on CT Images: From the Fleischner Society 2017. Radiology. 2017;284(1):228-243.
--- NOTE | 2023-08-26 20:23 | ED_ITS ---
HPI - Abdominal Pain General: Chief Complaint: Abdominal Pain Stated Complaint: abdomen pain Time Seen by Provider: 08/26/23 20:12 History of Present Illness: Patient presents to the ER with complaints of right lower quadrant abdominal/pelvic pain. She says she has a little knot down near the is very sensitive to touch and sometimes moves around. Patient says she felt this not approximately 2 months ago but only over the last couple days has been very exquisitely tender with any touch. Patient is also having nausea with this. Patient is never had any pain like this before. Review of Systems General: Reports: 10 or more systems reviewed and unremarkable except in HPI and below Physical Exam Const: COMMON NORMALS: no acute distress, average body habitus, patient oriented x3, no limitations, healthy appearing, alert and well nourished HENMT: COMMON NORMALS: normocephalic, atraumatic, hearing grossly normal bilaterally, external ears normal, Normal external nose present and moist oral mucous membranes HEAD & SCALP: normocephalic and atraumatic NOSE: Normal external nose present EXTERNAL EAR: Yes external ears normal Eye: COMMON NORMALS: Equal, round and reactive pupils present, EOMs intact b ilaterally, conjunctivae normal and no scleral icterus CONJUNCTIVA: Yes c onjunctivae normal PUPIL: Yes Equal, round and reactive pupils present Neck/C-Spine: COMMON NORMALS: full ROM, no lymphadenopathy, supple, no meningeal signs, no JVD and Thyroid normal THYROID: Thyroid normal Chest: COMMONS NORMALS: normal inspection of the chest and normal palpation of entire chest wall Resp: COMMON NORMALS: normal respiratory effort, No retractions, No use of acc essory muscles and clear to auscultation bilaterally AUSCULTATION: clear to auscultation bilaterally Cardio: COMMON NORMALS: no JVD, regular rate, regular rhythm, S1 normal heart sound present, S2 normal heart sound present, No gallops present (Cardio), No clicks present (Cardio), No murmurs present (Cardio) and No rub (Cardio) RATE: regular rate RHYTHM: regular rhythm HEART SOUNDS: S1 normal heart sound present and S2 normal heart sound present GI: COMMON NORMALS: Soft to palpation, No hepatosplenomegaly present and no masses; negative for Normal to inspection, nondistended, normoactive bowel sounds present (Normal to inspection, nondistended, hypoactive bowel sounds) and n egative for non-tender (Tender to palpation right lower quadrant.) PALPATION: Yes Soft to palpation and Yes No hepatosplenomegaly present : COMMON NORMALS: Yes no CVA tenderness BLADDER/KIDNEY EXAM: Yes no CVA tenderness Back/Pelvis: COMMON NORMALS: no CVA tenderness Neuro: COMMON NORMALS: patient oriented x3 SENSORIUM/ORIENTATION: Yes alert MENINGEAL SIGNS: Yes no meningeal signs Course Vital Signs: Vital signs: Vital Signs Temperature 98.2 F 08/26/23 20:05 Pulse Rate 86 08/26/23 22:03 Respiratory Rate 16 08/26/23 22:03 Blood Pressure 135/98 08/26/23 22:03 Pulse Oximetry 100 08/26/23 22:03 Oxygen Delivery Me thod Room Air 08/26/23 22:03 MDM - Abdominal Pain Medical Decision Making Physical exam was performed patient had some tenderness superficially in the right lower quadrant. Lab work revealed a low potassium of 2.6 and elevated creatinine of 1.8 and a slight urinary tract infection. Abdomen pelvis CT scan with contrast showed no acute findings in the pelvis or abdomen. Patient be discharged home with a diagnosis of UTI, abdominal pain, hypokalemia and given prescriptions for potassium and Cipro. Patient should follow-up with her PCP in approximate the next 7 to 10 days. Differential Diagnosis Likely abdominal pain; Unlikely acute appendicitis, calculus of kidney, constipation, diverticulitis, endometriosis, gastroenteritis, pancreatitis or small bowel obstruction Medical Records I reviewed the patient's medical records. Lab Data I reviewed the patient's lab results. 08/26/23 20:02 08/26/23 20:02 Labs/Radiology: Radiology Impressions Abdomen/Pelvis CT 08/26/23 20:22 IMPRESSION: 1. No acute findings in the abdomen and pelvis. 2. Atrophic left kidney. 3. Right lower lobe 5 mm pulmonary nodule. For patients at low risk (minimal or absent history of smoking and of other known risk factors), no routine follow-up is indicated. For patients at high risk (history of smoking or of other known risk factors), consider optional CT Chest at 12 months. (Reference: Kenroy) COMMENTS: Consistent with the [place] [employer]'s Incidental Findings Committee white paper (J Am Amy Radiol 2018): Any incidental renal lesion less than 1 cm or classified as too small to characterize, or any incidental cystic renal lesion characterized as simple-appearing, is likely benign. No follow-up imaging is recommended for these lesions per consensus recommendations based on imaging criteria. REFERENCES: Kenroy Pappas, et al. Guidelines for Management of Incidental Pulmonary Nodules Detected on CT Images: From the Fleischner Society 2017. Radiology. 2017;284(1):228-243. Laboratory Results WBC 7.38 10^3/uL (3.29-11.43) 08/26/23 20: RBC 4.59 10^6/uL (3.85-5.65) 08/26/23 20: Hgb 12.40 g/dL (11.27-16.99) 08/26/23 20: Hct 38.7 % (36-47) 08/26/23: MCV 84.3 fl (85-98) L 08/26/23 20: MCH 27.0 pg (27-33) 08/26/23 20: MCHC 32.0 g/dL (30-55) 08/26/23 20: RDW 12.2 % (12.1-15.1) 08/26/23 20: Plt Count 298 10^3/cmm (157-399) 08/26/23 20: MPV 8.9 fL (7.4-10.4) 08/26/23 20: Neut % (Auto) 48.5 % 08/26/23 20: Lymph % (Auto) 41.3 % 08/26/23 20: [place] % (Auto) 6.1 % 08/26/23 20: Eos % (Auto) 2.4 % 08/26/23 20: Baso % (Auto) 1.4 % 08/26/23 20: Neut # (Auto) 3.58 10^3/uL (1.8-7.7) 08/26/23 20: Lymph # (Auto) 3.1 10^3/uL (0.8-4.8) 08/26/23 20: [place] # (Auto) 0.5 10^3/uL (0.2-0.9) 08/26/23 20: Eos # (Auto) 0.2 10^3/uL (0.0-0.8) 08/26/23 20:02 Baso # (Auto) 0.1 10^3/uL (0.0-0.1) 08/26/23 20:02 Nucleated RBC % (auto) 0 % 08/26/23 20: Nucleated RBCs # 0.0 /100WBC 08/26/23 20:02 Sodium 138 mmol/L (136-145) 08/26/23 20: Potassium 2.6 mmol/L (3.5-5.1) L* 08/26/23 20: Chloride 96 mmol/L (98-107) L 08/26/23 20:02 Carbon Dioxide 33 mmol/L (22-29) H 08/26/23 20:02 Anion Gap 11.6 (5-19) 08/26/23 20: BUN 15 mg/dL (6-20) 08/26/23 20:02 Creatinine 1.8 mg/dL (0.5-0.9) H 08/26/23 20:02 GFR Calculation 30.0 mL/min (90-130) L 08/26/23 20: Glucose 97 mg/dL (65-115) 08/26/23 20:02 Calculated Osmolality 287 mOsm/kg (285-295) 08/26/23 20: Calcium 9.2 mg/dL (8.5-10.5) 08/26/23 20:02 Total Bilirubin 0.4 mg/dL (0.15-1.2) 08/26/23 20:02 AST 26 U/L (0-32) 08/26/23 20: ALT 22 U/L (0-33) 08/26/23 20:02 Alkaline Phosphatase 100 U/L (35-105) 08/26/23 20:02 Total Protein 7.7 g/dL (6.6-8.7) 08/26/23 20: Albumin 3.9 g/dL (3.5-5.2) 08/26/23 20: Globulin 3.8 g/dL (1.3-4.6) 08/26/23 20:02 Lipase 23 U/L (13-60) 08/26/23 20:02 HCG, Qual Negative (Negative) 08/26/23 20: Urine Color Yellow (Yellow) 08/26/23 22:01 Urine Appearance Clear (CLEAR) 08/26/23 22:01 Urine pH 5 (5-7) 08/26/23 22:01 Ur Specific Stanton 1.005 (1.005-1.030) 08/26/23 22:01 Urine Protein Neg (Negative) 08/26/23 22:01 Urine Glucose (UA) Norm (Normal) 08/26/23 22:01 Urine Ketones Negative (Negative) 08/26/23 22:01 Urine Blood Neg (Negative) 08/26/23 22:01 Urine Nitrate Negative (Negative) 08/26/23 22:01 Urine Bilirubin Neg (Negative) 08/26/23 22:01 Urine Urobilinogen Neg mg/dL (Negative) 08/26/23 22:01 Ur Leukocyte Esterase 1+ (Negative) H 08/26/23 22:01 Urine RBC Rare /hpf (0-2) 08/26/23 22:01 Urine WBC 10-15 /hpf (0-5) H 08/26/23 22:01 Ur Squamous Epith Cells 5-10 /hpf (0-5) H 08/26/23 22:01 Amorphous Sediment Not Reportable 08/26/23 22:01 Urine Bacteria 2+ /hpf (NONE) H 08/26/23 22:01 All radiology interpretation(s) finalized by discharge Discharge Plan Discharge Patient Disposition: Home Clinical Impression: Acute hypokalemia Abdominal pain Qualifiers: Abdominal location: right lower quadrant Qualified Code(s): R10.31 - Right lower quadrant pain Urinary tract infection Qualifiers: Urinary tract infection type: acute cystitis Hematuria presence: without hematuria Qualified Code(s): N30.00 - Acute cystitis without hematuria Condition: Stable Prescriptions: New ciprofloxacin HCl [Cipro] 250 mg tablet 250 mg PO Q12H Qty: 14 0RF potassium chloride 20 mEq tablet extended release 20 meq PO BID Qty: 14 0RF Discharge Orders: Discharge ED (Routine); Ordered 08/26/23 Ordered By: Vincent Grey Referrals: Zita Gan DO [Primary Care Provider] - Patient Instructions: Urinary Tract Infection in Women (DC), Hypokalemia (ED), Abdominal Pain (ED) Activity Restrictions/Additional Instructions: Please take all your medicine as directed. Please follow-up with your family practice physician in the next 7 to 10 days for repeat evaluation of your urinary tract infection and hypokalemia. 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
[2023-08-26 20:35] LABS: HCG, Serum Qual Negative (Negative)
[2023-08-26 20:38] LABS: Alanine Aminotransferase 22 U/L (0-33); Albumin Level 3.9 g/dL (3.5-5.2); Alkaline Phosphatase 100 U/L (35-105); Anion Gap 11.6 (5-19); Aspartate Amino Transferase 26 U/L (0-32); Blood Urea Nitrogen 15 mg/dL (6-20); Calcium 9.2 mg/dL (8.5-10.5); Carbon Dioxide 33 mmol/L (22-29); Chloride 96 mmol/L (98-107); Globulin 3.8 g/dL (1.3-4.6); Glucose 97 mg/dL (65-115); Lipase 23 U/L (13-60); Osmolality Calculated 287 mOsm/kg (285-295); Sodium 138 mmol/L (136-145); Total Bilirubin 0.4 mg/dL (0.15-1.2); Total Protein 7.7 g/dL (6.6-8.7)
[2023-08-26 20:39] LABS: Potassium 2.6 mmol/L (3.5-5.1)
--- NOTE | 2023-08-26 20:45 | PC.NURSE ---
CRITICAL LAB OF POTASSIUM REPORTED TO DR WEAVER. NO NEW ORDERS RECEIVED AT THIS TIME.
[2023-08-26] MEDS: ondansetron 2 mg/ML SDV 2 mL 4 MG IVP (21:00)
[2023-08-26] MEDS: potassium chloride ER 20 mEq Tablet 40 MEQ PO ×2 (21:00→23:03)
[2023-08-26] MEDS: iohexol 350 mg/mL 500 mL Btl (per mL) IV (21:12)
[2023-08-26] MEDS: sodium chloride 0.9% 1,000 ML 999 ML IV (21:23)
[2023-08-26 22:03] VITALS: BP 135/98; PULSE 86; RESP 16; O2SAT 100
[2023-08-26 22:20] LABS: Add Urine Microscopic? YES; Bacteria Urine 2+ /hpf; Bilirubin Urine Neg (Negative); Blood Urine Neg (Negative); Glucose Urine UA Norm (Normal); Ketones Urine Negative (Negative); Leukocyte Esterase Urine 1+ (Negative); Nitrate Urine Negative (Negative); Protein Urine Neg (Negative); RBC Urine RARE /hpf (0-2); Specific Gravity, Urine 1.005 (1.005-1.030); Urine Appearance Clear (CLEAR); Urine Color Yellow (Yellow); Urobilinogen Urine Neg (Negative); pH Urine 5 (5-7)
[2023-08-26 22:21] LABS: Add Urine Culture? Yes
[2023-08-26] MEDS: ciprofloxacin 500 mg Tablet PO (23:04)
[2023-08-26 23:06] VITALS: BP 128/84; PULSE 82; RESP 18; O2SAT 98
== END 2023-08-26 23:11 | disposition home or self-care (01) ==
PROVIDERS: Nurse Practitioner Family; Emergency Provider Emergency Medicine; PCP Family Medicine
DX: N30.00 Acute cystitis without hematuria (principal); E87.6 Hypokalemia
CPT/HCPCS: 36415; 74177; 80053; 81001; 83690; 84703; 85025; 87077; 87086; 87186; 96361; 96374; 99285; J2405; J7030; Q9967

== ENCOUNTER → 2024-04-18 13:48 | Outpatient (BNVA) | payer MEDICARE, MEDICAID, SELFPAY | PROVIDERS: PCP Family Medicine; Referring Provider Family Medicine; Visit Provider Internal Medicine | DX: R07.9 Chest pain, unspecified (principal); R00.1 Bradycardia, unspecified | CPT/HCPCS: 93005 ==

== ENCOUNTER 2024-05-16 06:50 | Outpatient (CLI) | payer MEDICARE, MEDICAID, SELFPAY ==
--- NOTE | 2024-05-16 | ECG_ITS ---
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 Interpretive Statements NAME OF STUDY: LEXISCAN SESTAMIBI STRESS TEST INDICATION: CP/SOB, PROCEDURE: At the baseline, the EKG revealed sinus bradycardia with a diffuse nonspecific ST-T changes. The baseline heart was 56 bpm with a blood pressue of 113/85 mm of Hg Lexiscan was infused over a period of 20 seconds. A total of 0.4 milligrams of Lexiscan was infused. The stress phase was continued for a total of 5 minutes. Heart rate at the end of the stress phase was 68 bpm with a blood pressure 136/87 mm of Hg. The EKG at the peak infusion revealed no significant changes. Sestamibi was injected 20 seconds after the Lexiscan infusion. Heart rate at the end of the recovery phase was 66 bpm with a blood pressure of 137/81 mm of Hg. CONCLUSION: 1. No significant EKG changes with the LexiScan infusion 2. No LexiScan induced chest pain or cardiac arrhythmia 3. Normal blood pressure and heart rate response 4. Sestamibi/sestamibi perfusion scan pending; see separate report. Electronically Signed On 05-18-2024 15:05:04 CDT by Andie Nath M.D. [id number]
--- NOTE | 2024-05-16 07:45 | NMCV_ITS ---
NM ahmet perf SPECT r/s* [id number] Adolph Celia Age: 48 Gender: F : 1975 Exam Date: 05/16/2024 08:16 Ordering Phys: Dario Shafer M.D ([email or web address]) Technologist: DONNELL Lui Exam Location: [facility] Indications: CP, SOB STRESS TEST Please [facility] IMAGE PROTOCOL Rest/Stress 1 Lexiscan Day Radiopharmaceutical Dose (mCi) Administration Site Administered by Rest: Tc-99m 10.8 IV DONNELL Lui Sestamibi Stress:Tc-99m 33.0 IV DONNELL Lui Sestamibi Rest: 16-May-2024 60 Discovery 630 Stress: 16-May-2024 15 Discovery 630 0.4mg Lexiscan. Supine position only as patient was unable to lay prone. SPECT RESULTS Technical Quality: Good Raw Data Analysis: Breast attenuation, Soft tissue attenuation Image Corrections: No attenuation or motion correction applied Summed Stress Score: 0 Summed Rest Score: 1 Summed Difference Score: 0 PERFUSION FINDINGS Fairly uniform myocardial tracer uptake No significant perfusion normalities. FUNCTIONAL RESULTS (calculated via Gated SPECT) Stress Image LV EF (%): 71 Stress EDV (mL):63 TID: 0.9 Stress ESV (mL):18 FUNCTIONAL FINDINGS: Segmental wall motion analysis revealing no gross wall motion abnormalities IMPRESSIONS 1. Myocardial perfusion imaging revealing uniform myocardial tracer uptake with no significant perfusion abnormalities 2. Normal LV ejection fraction 71%. 3. LV wall motion analysis revealing no gross wall motion abnormalities. 4. Normal LV volume Low probability for coronary ischemia, based on the above findings Dr Andie Nath MD FACC (Electronically Signed) Final Date: 16 May 2024 12:38 S
[2024-05-16 07:46] VITALS: BMI 46.4
[2024-05-16] MEDS: regadenoson 0.4 Mg/5 ml Syringe 0.400000000000000022 MG IVP (09:06)
[2024-05-16] MEDS: ondansetron 2 mg/ML SDV 2 mL 4 MG IVP (09:15)
[2024-05-16 09:29] VITALS: BP 137/81; PULSE 67
== END 2024-05-16 06:51 | disposition home or self-care (01) ==
LOC: RAD 07:09 → CDL 07:29
PROVIDERS: PCP Family Medicine; Visit Provider Internal Medicine
DX: R07.9 Chest pain, unspecified (principal); R06.02 Shortness of breath
CPT/HCPCS: 36415; 78452; 93017; 93306; 96374; 96375; A9500; J2405; J2785

== ENCOUNTER → 2024-06-19 12:33 | Outpatient (BNVA) | payer MEDICARE, OTHER, SELFPAY | PROVIDERS: PCP Family Medicine; Visit Provider Internal Medicine | DX: R00.2 Palpitations (principal); R06.09 Other forms of dyspnea | CPT/HCPCS: 99214 ==

== ENCOUNTER 2024-10-14 13:13 | Emergency (ER) | payer MEDICARE, MEDICAID, SELFPAY ==
[2024-10-14 13:15] VITALS: BP 159/100; PULSE 82; RESP 22; TEMP 36.4; O2SAT 99
--- NOTE | 2024-10-14 13:15 | ED_ITS ---
HPI - Chest Pain 2 General: Chief Complaint: Chest Pain Stated Complaint: cp Time Seen by Provider: 10/14/24 13:15 History of Present Illness: 48-year-old female presents emergency ro om complaining of chest pain that she has had for a week relates the pain to the left side of the chest at the anterior axillary line is worse with movement worse with deep breaths. It is also worse with palpation. No fever sweats chills or cough no shortness of breath no diaphoresis no history of any trauma that she can recall Associated symptoms: Deny abdominal pain, dyspnea or fever(s) Related Data Home Medications Medication Instructions Recorded Confirmed metoclopramide HCl 10 mg tablet 10 mg PO Q6H PRN Nausea And 02/06/23 10/14/24 Vomiting spironolactone 25 mg tablet 25 mg PO DAILY 12/12/23 10/14/24 baclofen 10 mg tablet 5 mg PO BID PRN Pain 04/18/24 10/14/24 desvenlafaxine succinate 50 mg 50 mg PO QAM 10/14/24 10/14/24 tablet,extended release 24 hr metoprolol succinate 50 mg 50 mg PO DAILY 10/14/24 10/14/24 tablet,extended release 24 hr Previous Rx's Medication Instructions Recorded AFO SPECTRUM #1 ea 09/24/21 Spectrum AFO to the right with #1 ea 03/23/22 Shoes- [employer] hydroxyzine HCl 50 mg tablet 50 mg PO QID PRN anxiety/insomnia 05/28/24 #120 tabs ropinirole 4 mg tablet 4 mg PO .HS #30 tabs 05/28/24 diclofenac sodium 75 mg 75 mg PO Q12H PRN pain #20 tabs 10/14/24 tablet,delayed release Allergies Allergy/AdvReac Type Severity Reaction Status Date / Time Alpha-Gal Allergy Allergy to Verified 10/01/24 10:39 (Ocsocxzbe-Kmodu-6,3-Gala mammal protiens. latex Allergy Unknown Verified 06/19/24 12:51 lisinopril Allergy ADR/ALGY-Pa Verified 06/19/24 12:51 lpitations sulfamethoxazole Allergy ALGY-Rash Verified 06/19/24 12:51 [From Bactrim] trimethoprim [From Bactrim] Allergy ALGY-Rash Verified 06/19/24 12:51 Review of Systems 2 Const: Denies: fever(s) or chills Card: Reports: chest pain Resp: Denies: dyspnea GI: Denies: abdominal pain : Denies: dysuria, urinary frequency or urinary urgency Musc: Denies: neck pain or back pain Skin/Breast: Denies: rash PFSH ED 2 PFSH: Medical History Jejunal intussusception Mixed incontinence urge and stress Psychiatric care Mixed stress and urge urinary incontinence Recurrent UTI 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 Fibromyalgia Hypertension Asthma Hyperglycemia Colon polyps Musculoskeletal pain GERD (gastroesophageal reflux disease) Surgical History History of carpal tunnel release of both wrists 2009 History of hysterectomy History of tubal ligation 2008 History of cholecystectomy lap- 2008 Family History Mother Hypertension Father Hypertension CAD (coronary artery disease) Grandfather Lung disease Denies family history of Diabetes Dementia Cancer Stroke Social History Smoking and tobacco/nicotine status: never used tobacco/nicotine Second hand smoke exposure: No Alcohol intake: current Alcohol intake frequency: holidays/special occasions only Alcohol type: other Substance/Drug Use: never Lives independently: Yes Household members: spouse Marital status: Current occupational status: unemployed Physical Exam 2 Const: GENERAL APPEARANCE: cooperative ORIENTATION/CONSCIOUSNESS: Yes awake, Yes oriented to person, Yes oriented to place and Yes oriented to time HENMT: COMMON NORMALS: normocephalic, atraumatic and hearing grossly normal bilaterally HEAD & SCALP: normocephalic and atraumatic Chest: OTHER: Tender in the left anterior axillary line inferior to the breast. Examination of the skin there is no rash or facet vesicles no bruising no subcutaneous emphysema no palpable deformity of the ribs Resp: COMMON NORMALS: normal respiratory effort, No retractions, No use of accessory muscles and clear to auscultation bilaterally AUSCULTATION: clear to auscultation bilaterally Cardio: COMMON NORMALS: regular rate, regular rhythm and No murmurs present (Cardio) RATE: regular rate RHYTHM: regular rhythm GI: COMMON NORMALS: Soft to palpation and No hepatosplenomegaly present A USCULTATION: Yes normoactive bowel sounds PALPATION: Yes Soft to palpation, No Tenderness to palpation present (GI), No Guarding due to palpation present (GI) and Yes No hepatosplenomegaly present Extremity: COMMON NORMALS: normal to inspection, capillary refill normal, no clubbing, cyanosis or edema, no calf tenderness and no pedal edema Neuro: SENSORIUM/ORIENTATION: Yes oriented to person, Yes oriented to place and Yes oriented to time Skin: COMMON NORMALS: no rashes or lesions noted GENERAL SKIN EXAM: no rashes or lesions noted Course 2 Vital Signs: Vital signs: Vital Signs Temperature 97.5 F L 10/14/24 13:15 Pulse Rate 84 10/14/24 14:36 Respiratory Rate 16 10/14/24 13:31 Blood Pressure 178/99 10/14/24 14:36 Pulse Oximetry 96 10/14/24 14:36 Oxygen Delivery Me thod Room Air 10/14/24 13:31 MDM - Chest Pain Medical Decision Making Musculoskeletal chest wall pain reproducible with palpation on the lateral portion of the chest wall to the anterior axillary line just inferior to the breast exquisitely tender pain is reproducible she has had the pain for a week troponin is negative EKG does not show any acute changes discharged home with diclofenac to use as needed. Chest x-ray was also normal. Medical Records I reviewed the patient's medical records. Lab Data I reviewed the patient's lab results. 10/14/24 13:30 10/14/24 13:30 Radiology Impressions Ribs X-Ray 10/14/24 13:18 Impression: Negative chest with left rib detail. Laboratory Results WBC 6.51 10^3/uL (3.29-11.43) 10/14/24 13:30 RBC 4.68 10^6/uL (3.85-5.65) 10/14/24 13:30 Hgb 13.00 g/dL (11.27-16.99) 10/14/24 13:30 Hct 40.2 % (36-47) 10/14/24 13:30 MCV 85.9 fl (85-98) 10/14/24 13:30 MCH 27.8 pg (27-33) 10/14/24 13:30 MCHC 32.3 g/dL (30-55) 10/14/24 13:30 RDW 12.2 % (12.1-15.1) 10/14/24 13:30 Plt Count 252 10^3/cmm (157-399) 10/14/24 13:30 MPV 9.8 fL (7.4-10.4) 10/14/24 13:30 Neut % (Auto) 49.5 % 10/14/24 13:30 Lymph % (Auto) 38.2 % 10/14/24 13:30 [place] % (Auto) 8.3 % 10/14/24 13:30 Eos % (Auto) 2.6 % 10/14/24 13:30 Baso % (Auto) 1.2 % 10/14/24 13:30 Neut # (Auto) 3.22 10^3/uL (1.8-7.7) 10/14/24 13:30 Lymph # (Auto) 2.5 10^3/uL (0.8-4.8) 10/14/24 13:30 [place] # (Auto) 0.5 10^3/uL (0.2-0.9) 10/14/24 13:30 Eos # (Auto) 0.2 10^3/uL (0.0-0.8) 10/14/24 13:30 Baso # (Auto) 0.1 10^3/uL (0.0-0.1) 10/14/24 13:30 Nucleated RBC % (auto) 0 % 10/14/24 13:30 Nucleated RBCs # 0.0 /100WBC 10/14/24 13:30 Sodium 140 mmol/L (136-145) 10/14/24 13:30 Potassium 3.8 mmol/L (3.5-5.1) 10/14/24 13:30 Chloride 102 mmol/L (98-107) 10/14/24 13:30 Carbon Dioxide 24 mmol/L (22-29) 10/14/24 13:30 Anion Gap 17.8 (5-19) 10/14/24 13:30 BUN 15 mg/dL (6-20) 10/14/24 13:30 Creatinine 1.3 mg/dL (0.5-0.9) H 10/14/24 13:30 GFR Calculation 43.5 mL/min (90-130) L 10/14/24 13:30 Glucose 88 mg/dL (65-115) 10/14/24 13:30 Calculated Osmolality 290 mOsm/kg (285-295) 10/14/24 13:30 Calcium 9.2 mg/dL (8.5-10.5) 10/14/24 13:30 Total Bilirubin 0.6 mg/dL (0.15-1.2) 10/14/24 13:30 AST 66 U/L (0-32) H 10/14/24 13:30 ALT 84 U/L (0-33) H 10/14/24 13:30 Alkaline Phosphatase 91 U/L (35-105) 10/14/24 13:30 Troponin T Baseline < 6 ng/L (0-10) 10/14/24 13:30 Total Protein 6.8 g/dL (6.6-8.7) 10/14/24 13:30 Albumin 4.1 g/dL (3.5-5.2) 10/14/24 13:30 Globulin 2.7 g/dL (1.3-4.6) 10/14/24 13:30 All radiology interpretation(s) finalized by discharge Discharge Plan Discharge Patient Disposition: Home Clinical Impression: Acute chest wall pain Prescriptions: New diclofenac sodium 75 mg tablet,delayed release (DR/EC) 75 mg PO Q12H PRN (Reason: pain) Qty: 20 0RF No Action (DME) AFO SPECTRUM See Rx Instructions .Route .MEDSUPPLY Qty: 1 0RF Rx Instructions: As directed Patient has a history of unstable ankles (DME) Spectrum AFO to the right with Shoes- New Balance See Rx Instructions .Route .MEDSUPPLY Qty: 1 0RF Rx Instructions: As directed by [facility] metoclopramide HCl 10 mg tablet 10 mg PO Q6H PRN (Reason: Nausea And Vomiting) spironolactone 25 mg tablet 25 mg PO DAILY baclofen 10 mg tablet 5 mg PO BID PRN (Reason: Pain) ropinirole 4 mg tablet 4 mg PO .HS Qty: 30 2RF hydroxyzine HCl 50 mg tablet 50 mg PO QID PRN (Reason: anxiety/insomnia) Qty: 120 2RF metoprolol succinate 50 mg tablet extended release 24 hr 50 mg PO DAILY desvenlafaxine succinate 50 mg tablet extended release 24 hr 50 mg PO QAM Discharge Orders: Discharge ED (Routine); Ordered 10/14/24 Ordered By: Alessandro Collier Referrals: Zita Gan, DO [Primary Care Provider] - Discharge Diet: Usual diet Discharge Activity: Increase activity as tolerated Patient Instructions: Opioid Safety, Pain Management Activity Restrictions/Additional Instructions: Thank you for choosing [facility] for your healthcare needs today. It is very important that you follow up as instructed or that you return to the Emergency Department should you have concerns or if your condition changes or worsens in any way. You are seen emergency room for chest pain. Cardiac enzymes are negative EKG was normal. Your chest pain and exam are not consistent with acute coronary syndrome and is more consistent with a musculoskeletal chest wall pain. X-ray of the chest and ribs did not show any acute fractures is likely to be soft tissue. You can use diclofenac as needed ice or heat to the area follow-up with your primary care doctor. 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
--- NOTE | 2024-10-14 13:18 | XR_ITS ---
WS: [id number] Chest with left rib detail, 4 views, 10/14/2024 Clinical Data: Left rib pain Comparison: Portable chest, 04/08/2023 Findings: The lungs show no nodules, masses, or effusions. The heart is normal. No pneumonia or pneumothorax is seen. The ribs are intact. No rib fractures seen. No subcutaneous emphysema is present. XR/XR ribs LT mn 3V w [id number] Impression: Negative chest with left rib detail.
--- NOTE | 2024-10-14 13:18 | ECG_ITS ---
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: : 1975 Requested By: Alessandro Ruth Order Number: [id number] Reading MD: MIR OLSEN Measurements Intervals Hanna Rate: 80 P: 62 NM: 134 QRS: 48 QRSD: 91 T: 26 QT: 400 QTc: 462 Interpretive Statements SINUS RHYTHM WITH SINUS ARRHYTHMIA LOW QRS VOLTAGE IN PRECORDIAL LEADS [QRS DEFLECTION < 1.0 mV IN CHEST LEADS] NONSPECIFIC T-WAVE ABNORMALITY Compared to ECG 04/18/2024 13:54:59 Low QRS voltage now present Sinus bradycardia no longer present T-wave abnormality still present Electronically Signed On 10-14-2024 18:53:28 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
[2024-10-14 13:31] VITALS: BP 166/113; PULSE 96; RESP 16; O2SAT 96
[2024-10-14 13:39] LABS: Basophils # 0.1 10^3/uL (0.0-0.1); Basophils % 1.2 %; Eosinophils # 0.2 10^3/uL (0.0-0.8); Eosinophils % 2.6 %; Hematocrit 40.2 % (36-47); Lymphocytes # 2.5 10^3/uL (0.8-4.8); Lymphocytes % 38.2 %; Mean Corpuscular HGB Conc 32.3 g/dL (30-55); Mean Corpuscular Hemoglobin 27.8 pg (27-33); Mean Corpuscular Volume 85.9 fl (85-98); Mean Platelet Volume 9.8 fL (7.4-10.4); Monocytes # 0.5 10^3/uL (0.2-0.9); Monocytes % 8.3 %; Neutrophils # 3.22 10^3/uL (1.8-7.7); Neutrophils % 49.5 %; Nucleated Red Blood Cells % 0 %; Platelet Count 252 10^3/cmm (157-399); Red Blood Count 4.68 10^6/uL (3.85-5.65); Red Cell Distribution Width 12.2 % (12.1-15.1); White Blood Count 6.51 10^3/uL (3.29-11.43)
--- NOTE | 2024-10-14 13:54 | PC.PHAR ---
Patient s Medication List is what is currant at the Facility she is [facility] at
[2024-10-14 13:59] LABS: Alanine Aminotransferase 84 U/L (0-33); Albumin Level 4.1 g/dL (3.5-5.2); Alkaline Phosphatase 91 U/L (35-105); Anion Gap 17.8 (5-19); Aspartate Amino Transferase 66 U/L (0-32); Blood Urea Nitrogen 15 mg/dL (6-20); Calcium 9.2 mg/dL (8.5-10.5); Carbon Dioxide 24 mmol/L (22-29); Chloride 102 mmol/L (98-107); Creatinine Clr Calc Pharmacy 88.4633; Globulin 2.7 g/dL (1.3-4.6); Glomerular Filtration Rate 43.5 mL/min (90-130); Glucose 88 mg/dL (65-115); Osmolality Calculated 290 mOsm/kg (285-295); Potassium 3.8 mmol/L (3.5-5.1); Sodium 140 mmol/L (136-145); Total Bilirubin 0.6 mg/dL (0.15-1.2); Total Protein 6.8 g/dL (6.6-8.7); Troponin(5th) Baseline < 6 ng/L (0-10)
[2024-10-14 14:36] VITALS: BP 178/99; PULSE 84; O2SAT 96
== END 2024-10-14 14:37 | disposition home or self-care (01) ==
PROVIDERS: Emergency Provider Family Medicine; PCP Family Medicine
DX: R07.89 Other chest pain (principal); I10 Essential (primary) hypertension; E78.5 Hyperlipidemia, unspecified
CPT/HCPCS: 36415; 71101; 80053; 84484; 85025; 93005; 99285